=== PATIENT | female | born 1945 | race Caucasian/White ===

== ENCOUNTER → 2018-01-09 13:30 | Outpatient (CLI) | payer MEDICARE, SELFPAY ==
[2018-01-09 14:40] LABS: Anion Gap 10 (5-15); BUN 11 mg/dL (7-18); BUN/Creat Ratio 10.7 RATIO (10-20); Calcium,Total 8.7 mg/dL (8.5-10.1); Chloride 98 mmol/L (98-107); Creatinine, Serum 1.03 mg/dL (0.55-1.02); EST Glomerular Filtration Rate 56 mL/min (>60); Est Glom Filt Rate - Afr Amer 68 mL/min (>60); Glucose 107 mg/dL (74-106); Potassium 3.9 mmol/L (3.5-5.1); Sodium Level 133 mmol/L (136-145)
== END ==
PROVIDERS: Family Provider Family Medicine Geriatric Medicine; PCP Family Medicine Geriatric Medicine; Visit Provider Family Medicine Geriatric Medicine
DX: E87.6 Hypokalemia (principal)
CPT/HCPCS: 36415; 80048

== ENCOUNTER → 2018-03-26 12:17 | Outpatient (CLI) | payer MEDICARE, SELFPAY ==
--- NOTE | 2018-03-26 13:01 | MRI_ITS ---
STUDY: MRI LUMBAR SPINE WITHOUT CONTRAST REASON FOR EXAM: Female, 72 years old. Low back pain and right leg pain TECHNIQUE: Standardized fat and water weighted pulse sequences were obtained in the sagittal and axial planes. COMPARISON: None FINDINGS: T12-L1: Anterior osteophytes and L1 Schmorl's node. Bulging annulus without compressive sequelae. Normal lumbar lordosis. There is no substantial scoliosis. Normal conus medullaris that terminates at the T12-L1 level. L1-2: Normal endplates. Normal disc height, hydration and morphology. Normal bilateral facet joints. Normal central canal and bilateral lateral recesses. Normal bilateral intervertebral neural foramina. L2-3: Bulging annulus and bilateral facet hypertrophy with mild central canal and bilateral foraminal stenoses. L3-4: Anterior osteophytes. Bulging annulus with mild central canal stenosis and moderate to severe left and mild right foraminal stenoses. L4-5: Bulging annulus and bilateral facet hypertrophy with mild central canal stenosis and bilateral foraminal stenoses. L5-S1: Bilateral lateral disc osteophyte complexes. No nerve root impingement. Normal visualized sacral ala. Normal visualized paraspinous soft tissue structures. Left renal cyst. MRI/Spine Lumbar (Routine) IMPRESSION: Multilevel degenerative disease as described. Moderate to severe left foraminal stenosis at the L3-4 level. Electronically Signed: Cory Sue MD at 2:53 EDT Tel , Service support ,
== END ==
PROVIDERS: Family Provider Family Medicine Geriatric Medicine; PCP Family Medicine Geriatric Medicine; Visit Provider Anesthesiology Pain Medicine
DX: M54.5 Low back pain (principal); M79.604 Pain in right leg; M51.37 Other intervertebral disc degeneration, lumbosacral region; M54.17 Radiculopathy, lumbosacral region; M47.817 Spondylosis without myelopathy or radiculopathy, lumbosacral region
CPT/HCPCS: 72148

== ENCOUNTER → 2018-07-15 16:22 | Outpatient (CLI) | payer MEDICARE, SELFPAY ==
[2018-07-15 17:14] LABS: Absolute Lymphocyte Count 1.19 X10^3/ul (0.83-4.51); Basophil# 0.02 X10^3/uL; Basophil% 0.4 % (0-1); Eosinophil# 0.41 X10^3/uL; Eosinophils% 8.2 % (0-5); Hematocrit 34.9 % (37-47); Hemoglobin 11.5 g/dl (12.0-15.0); Lymphocyte # 1.19 X10^3/ul (4.0); Lymphocyte % 23.7 % (19-41); Mean Corpuscular Hgb 32.9 pg (27.0-32.0); Mean Corpuscular Volume 99.7 fL (81-99); Mean Platelet Vol. 10.2 fl (6.2-12.0); Monocyte# 0.41 X10^3/uL; Monocyte% 8.2 % (0-10); Neutrophil % 59.5 % (47-70); Platelet Count 120 K/mm3 (150-450); RBC Distribution Width CV 15.3 % (11.6-14.6); RBC Distribution Width SD 55.9 fl (35.1-43.9)
[2018-07-15 17:18] LABS: POSITIVE COUNT NO; POSITIVE DIFFERENTIAL NO; POSITIVE MORPHOLOGY NO
[2018-07-15 18:01] LABS: ALB/GLOB Ratio 0.6 RATIO (0.9-2.4); AST(SGOT) 55 U/L (15-37); Alanine Aminotransfer ALT/SGPT 30 U/L (13-56); Albumin, Serum 2.5 g/dL (3.2-5.0); Alkaline Phosphatase 82 U/L (45-117); Anion Gap 12 (5-15); BUN 10 mg/dL (7-18); Calcium,Total 8.6 mg/dL (8.5-10.1); Chloride 103 mmol/L (98-107); Creatinine, Serum 1.11 mg/dL (0.55-1.02); EST Glomerular Filtration Rate 51 mL/min (>60); Est Glom Filt Rate - Afr Amer 62 mL/min (>60); Globulin 4.4 g/dL (2.2-4.2); Glucose 146 mg/dL (74-106); Protein, Total 6.9 g/dL (6.4-8.2); Sodium Level 138 mmol/L (136-145); Thyroid Stim Hormone (TSH) 0.53 uIU/mL (0.358-3.74); Uric Acid 3.7 mg/dL (2.6-6.0)
[2018-07-16 09:06] LABS: Vitamin D,25 Hydroxy 30.2 ng/mL (29.95-100.01)
== END ==
PROVIDERS: Family Provider Family Medicine Geriatric Medicine; PCP Family Medicine Geriatric Medicine; Visit Provider Family Medicine Geriatric Medicine
DX: I10 Essential (primary) hypertension (principal); M10.9 Gout, unspecified; E55.9 Vitamin D deficiency, unspecified
CPT/HCPCS: 36415; 80053; 82306; 84443; 84550; 85025

== ENCOUNTER → 2019-01-02 10:54 | Outpatient (CLI) | payer MEDICARE, SELFPAY ==
[2019-01-02 13:12] LABS: Absolute Lymphocyte Count 1.16 X10^3/ul (0.83-4.51); Basophil# 0.02 X10^3/uL; Basophil% 0.4 % (0-1); Eosinophil# 0.32 X10^3/uL; Eosinophils% 6.6 % (0-5); Hematocrit 33.7 % (37-47); Lymphocyte # 1.16 X10^3/ul (4.0); Lymphocyte % 23.9 % (19-41); Mean Corp Hgb Conc 32.6 g/gl (32-36); Mean Corpuscular Hgb 32.3 pg (27.0-32.0); Mean Corpuscular Volume 98.8 fL (81-99); Monocyte# 0.38 X10^3/uL; Monocyte% 7.8 % (0-10); Neutrophil # 2.97 X10^3/uL (2.7-7.7); Neutrophil % 61.1 % (47-70); Platelet Count 124 K/mm3 (150-450); RBC Distribution Width CV 15.5 % (11.6-14.6); RBC Distribution Width SD 53.7 fl (35.1-43.9); Red Blood Count 3.41 M/mm3 (4.2-5.4); White Blood Count 4.9 K/mm3 (4.4-11.0)
[2019-01-02 13:13] LABS: POSITIVE COUNT NO; POSITIVE DIFFERENTIAL NO; POSITIVE MORPHOLOGY NO
[2019-01-02 13:49] LABS: Vitamin D,25 Hydroxy 23.6 ng/mL (29.95-100.01)
[2019-01-02 13:59] LABS: ALB/GLOB Ratio 0.5 RATIO (0.9-2.4); AST(SGOT) 38 U/L (15-37); Alanine Aminotransfer ALT/SGPT 20 U/L (13-56); Albumin, Serum 2.5 g/dL (3.2-5.0); Alkaline Phosphatase 90 U/L (45-117); Anion Gap 10 (5-15); BUN 11 mg/dL (7-18); BUN/Creat Ratio 9.7 RATIO (10-20); Calcium,Total 8.5 mg/dL (8.5-10.1); Chloride 104 mmol/L (98-107); Creatinine, Serum 1.13 mg/dL (0.55-1.02); EST Glomerular Filtration Rate 50 mL/min (>60); Est Glom Filt Rate - Afr Amer 61 mL/min (>60); Globulin 4.9 g/dL (2.2-4.2); Glucose 172 mg/dL (74-106); Potassium 4.1 mmol/L (3.5-5.1); Protein, Total 7.4 g/dL (6.4-8.2); Sodium Level 136 mmol/L (136-145); Uric Acid 3.9 mg/dL (2.6-6.0)
== END ==
PROVIDERS: Family Provider Family Medicine Geriatric Medicine; PCP Family Medicine Geriatric Medicine; Visit Provider Family Medicine Geriatric Medicine
DX: I10 Essential (primary) hypertension (principal); E55.9 Vitamin D deficiency, unspecified; M10.9 Gout, unspecified
CPT/HCPCS: 36415; 80053; 82306; 84443; 84550; 85025

== ENCOUNTER → 2019-08-04 09:22 | Outpatient (CLI) | payer MEDICARE, SELFPAY ==
--- NOTE | 2019-08-04 15:35 | RAD_ITS ---
STUDY: X-RAY - ABDOMEN/PELVIS REASON FOR EXAM: Female, 73 years old. Abdominal bloating. Pain. Diarrhea. TECHNIQUE: AP supine view. COMPARISON: 04/09/2017. FINDINGS: Normal visualized lung bases. There is an unremarkable bowel gas pattern. There is no demonstrated free abdominal air. The visualized liver, spleen and kidneys are grossly normal in size and morphology. Normal soft tissue structures. No acute osseous abnormality. RAD/Abd Inc Decub and/or Erect IMPRESSION: 1. No acute abnormality in the abdomen and pelvis. 2. No significant interval change when compared to 04/09/2017. Electronically Signed: Gideon Farmer MD at 13:42 EDT , Service support ,
[2019-08-04 17:17] LABS: Absolute Lymphocyte Count 1.93 X10^3/uL (0.83-4.51); Absolute Neutrophil Count 4.9 X10^3/uL (2.0-7.7); Basophil# 0.03 X10^3/uL; Basophil% 0.4 % (0-1); Eosinophil# 0.39 X10^3/uL; Hematocrit 27.2 % (37-47); Hemoglobin 8.8 g/dL (12.0-15.0); Lymphocyte # 1.93 X10^3/ul (4.0); Lymphocyte % 24.8 % (19-41); Mean Corp Hgb Conc 32.4 g/dL (32-36); Mean Corpuscular Volume 101.9 fL (81-99); Mean Platelet Vol. 10.8 fl (6.2-12.0); Monocyte% 6.4 % (0-10); NRBC Flagged by Analyzer 0 % (0-5); POSITIVE MORPHOLOGY YES; Platelet Count 142 K/mm3 (150-450); RBC Distribution Width CV 18.6 % (11.6-14.6); RBC Distribution Width SD 69.7 fl (35.1-43.9); Red Blood Count 2.67 M/mm3 (4.2-5.4); White Blood Count 7.8 K/mm3 (4.4-11.0)
[2019-08-04 17:33] LABS: Differential Indicated SCAN CRITERIA MET
[2019-08-04 17:34] LABS: ALB/GLOB Ratio 0.5 RATIO (0.9-2.4); AST(SGOT) 39 U/L (15-37); Alanine Aminotransfer ALT/SGPT 20 U/L (13-56); Albumin, Serum 2.2 g/dL (3.2-5.0); Alkaline Phosphatase 73 U/L (45-117); Anion Gap 10 (5-15); BUN 27 mg/dL (7-18); BUN/Creat Ratio 8.4 RATIO (10-20); Calcium,Total 8.1 mg/dL (8.5-10.1); Chloride 114 mmol/L (98-107); EST Glomerular Filtration Rate 15 mL/min (>60); Est Glom Filt Rate - Afr Amer 18 mL/min (>60); Globulin 4.2 g/dL (2.2-4.2); Glucose 101 mg/dL (74-106); Potassium 4.8 mmol/L (3.5-5.1); Protein, Total 6.4 g/dL (6.4-8.2); Sodium Level 142 mmol/L (136-145); Thyroid Stim Hormone (TSH) 2.68 uIU/mL (0.358-3.74); Uric Acid 4.4 mg/dL (2.6-6.0)
[2019-08-04 18:05] LABS: Anisocytosis 2+; Platelet Estimate SLT DEC (ADEQ)
[2019-08-04 18:06] LABS: Macrocytosis 1+; Polychromasia RARE
== END ==
LOC: POLAB3 09:23 → RAD 15:26
PROVIDERS: Family Provider Family Medicine Geriatric Medicine; PCP Family Medicine Geriatric Medicine; Referring Provider Family Medicine Geriatric Medicine; Visit Provider Family Medicine Geriatric Medicine
DX: E55.9 Vitamin D deficiency, unspecified (principal); I10 Essential (primary) hypertension; M10.9 Gout, unspecified; R10.9 Unspecified abdominal pain
CPT/HCPCS: 36415; 74019; 80053; 82274; 82306; 83630; 84443; 84550; 85025; 87177; 87209; 87493; 89055

== ENCOUNTER → 2019-08-05 10:09 | Outpatient (CLI) | payer MEDICARE, SELFPAY | PROVIDERS: Family Provider Family Medicine Geriatric Medicine; PCP Family Medicine Geriatric Medicine; Referring Provider Family Medicine Geriatric Medicine; Visit Provider Family Medicine Geriatric Medicine | DX: R19.7 Diarrhea, unspecified (principal) | CPT/HCPCS: 82274; 83630; 87177; 87209; 87493; 89055 ==

== ENCOUNTER → 2019-08-06 14:52 | Outpatient (CLI) | payer MEDICARE, SELFPAY ==
[2019-08-06 16:19] LABS: Absolute Lymphocyte Count 1.19 X10^3/uL (0.83-4.51); Absolute Neutrophil Count 3.5 X10^3/uL (2.0-7.7); Basophil# 0.03 X10^3/uL; Basophil% 0.6 % (0-1); Eosinophil# 0.33 X10^3/uL; Eosinophils% 6.1 % (0-5); Hematocrit 26.6 % (37-47); Hemoglobin 8.4 g/dL (12.0-15.0); Lymphocyte # 1.19 X10^3/ul (4.0); Mean Corp Hgb Conc 31.6 g/dL (32-36); Mean Corpuscular Hgb 32.4 pg (27.0-32.0); Mean Corpuscular Volume 102.7 fL (81-99); Mean Platelet Vol. 11.2 fl (6.2-12.0); Monocyte# 0.35 X10^3/uL; Monocyte% 6.5 % (0-10); NRBC Flagged by Analyzer 0 % (0-5); Neutrophil # 3.49 X10^3/uL (2.7-7.7); Neutrophil % 64.4 % (47-70); POSITIVE MORPHOLOGY YES; Platelet Count 118 K/mm3 (150-450); RBC Distribution Width CV 18.5 % (11.6-14.6); RBC Distribution Width SD 70.1 fl (35.1-43.9); RET-HE 38.2 pg (30-35); Red Blood Count 2.59 M/mm3 (4.2-5.4); Reticulocyte Count 2.65 % (0.5-1.5); White Blood Count 5.4 K/mm3 (4.4-11.0)
[2019-08-06 16:40] LABS: Differential Comment SCANNED
[2019-08-06 17:02] LABS: Vitamin B12 > 2000 pg/mL (211-911)
[2019-08-06 17:12] LABS: Anion Gap 9 (5-15); BUN 30 mg/dL (7-18); BUN/Creat Ratio 8.9 RATIO (10-20); Chloride 114 mmol/L (98-107); Creatinine, Serum 3.36 mg/dL (0.55-1.02); EST Glomerular Filtration Rate 14 mL/min (>60); Est Glom Filt Rate - Afr Amer 17 mL/min (>60); Ferritin 277 ng/mL (8-252); Glucose 85 mg/dL (74-106); Iron 93 ug/dL (50-170); Iron Binding Capacity,Total 198 ug/dL (250-450); Potassium 4.8 mmol/L (3.5-5.1); Sodium Level 141 mmol/L (136-145)
== END ==
PROVIDERS: Family Provider Family Medicine Geriatric Medicine; PCP Family Medicine Geriatric Medicine; Visit Provider Family Medicine Geriatric Medicine
DX: D64.9 Anemia, unspecified (principal); N17.0 Acute kidney failure with tubular necrosis
CPT/HCPCS: 36415; 80048; 82607; 82728; 82746; 83540; 83550; 85025; 85045

== ENCOUNTER 2019-08-17 19:53 | Inpatient (IN) | payer MEDICARE, SELFPAY ==
[2019-08-13 14:37] VITALS: BMI 47.7
[2019-08-17 19:54] VITALS: BP 166/96; PULSE 94; RESP 22; TEMP 37.1; O2SAT 97; BMI 47.0
[2019-08-17 20:18] LABS: Absolute Lymphocyte Count 1.68 X10^3/uL (0.83-4.51); Absolute Neutrophil Count 3.2 X10^3/uL (2.0-7.7); Basophil# 0.03 X10^3/uL; Basophil% 0.5 % (0-1); Eosinophils% 5.2 % (0-5); Hematocrit 27.8 % (37-47); Lymphocyte # 1.68 X10^3/ul (4.0); Mean Corp Hgb Conc 32.4 g/dL (32-36); Mean Corpuscular Hgb 33.6 pg (27.0-32.0); Mean Corpuscular Volume 103.7 fL (81-99); Mean Platelet Vol. 10.1 fl (6.2-12.0); Monocyte# 0.52 X10^3/uL; NRBC Flagged by Analyzer 0 % (0-5); Neutrophil # 3.23 X10^3/uL (2.7-7.7); Neutrophil % 55.6 % (47-70); POSITIVE MORPHOLOGY YES; Platelet Count 129 K/mm3 (150-450); RBC Distribution Width CV 18.6 % (11.6-14.6); RBC Distribution Width SD 70.1 fl (35.1-43.9); Red Blood Count 2.68 M/mm3 (4.2-5.4); White Blood Count 5.8 K/mm3 (4.4-11.0)
[2019-08-17 20:25] LABS: Differential Indicated SCAN CRITERIA MET
[2019-08-17 20:29] LABS: Anion Gap 8 (5-15); BUN 25 mg/dL (7-18); BUN/Creat Ratio 7.4 RATIO (10-20); Calcium,Total 7.8 mg/dL (8.5-10.1); Chloride 112 mmol/L (98-107); Creatinine, Serum 3.38 mg/dL (0.55-1.02); EST Glomerular Filtration Rate 14 mL/min (>60); Est Glom Filt Rate - Afr Amer 17 mL/min (>60); Estimated Creatinine Clearance 11.35 ml/min; Glucose 123 mg/dL (74-106); Potassium 4.5 mmol/L (3.5-5.1); Sodium Level 138 mmol/L (136-145)
[2019-08-17 20:36] LABS: Anisocytosis 1+; Macrocytosis 1+; Platelet Estimate SLT DEC (ADEQ)
[2019-08-17 22:17] VITALS: BP 164/71; PULSE 93; RESP 16; TEMP 37; O2SAT 98
[2019-08-17 23:00] VITALS: BP 149/77; PULSE 98; RESP 17; TEMP 36.4; O2SAT 97
--- NOTE | 2019-08-17 23:24 | ED.VIS.GEN ---
History of Present Illness Chief Complaint: Nausea/Vomiting/Diarrhea Narrative: This patient is a 73-year-old female who presents with nausea dry heaving diarrhea and weakness. She was diagnosed with C. difficile. She has had diarrhea for 6 or 7 weeks. 2 weeks ago she was started on Flagyl. She reports insurance would not approve the other medication my doctor wanted me to take and she was unable to afford it. She complains of ongoing diarrhea which is actually been worsening and she had multiple episodes of diarrhea today. She also complains nausea and dry heaving. She complains of mild abdominal cramping. She also has anemia. She was referred to Dr. Kiser who treated her with IV fluids recently. Past Medical History - Allergies and Home Meds Allergies/Adverse Reactions: Allergies adhesive Allergy (Verified 08/17/19 22:22) Rash Penicillins [PCN] Allergy (Verified 08/17/19 22:22) Swelling Primary Care Physician: Rakesh Ramos Chi, MD [Primary Care Provider] - Past Medical History: - - C. difficile, hypertension, hyperlipidemia Surgical History: appendectomy, cholecystectomy, - - Extensor tendon surgery on both hands, bilateral carpal tunnel, tubal ligation Smoking Status: Never smoker - Family History Maternal Family History: Family History (Last Reviewed 08/13/19 @ 14:37 by Emmanuelle Van) Brother Bone cancer Sister Lung cancer Sister Cervical cancer Hypertension Mother Uterine cancer Father Hypertension Myocardial infarction Brother Myocardial infarction Family History: Reports: Cancer Paternal Family History: Family History (Last Reviewed 08/13/19 @ 14:37 by Emmanuelle Van) Brother Bone cancer Sister Lung cancer Sister Cervical cancer Hypertension Mother Uterine cancer Father Hypertension Myocardial infarction Brother Myocardial infarction Family History: Reports: Heart Disease Review of Systems All systems negative except as indicated General: Denies: Fever Cardiovascular: Denies: Chest pain Respiratory: Denies: Dyspnea Gastrointestinal: Reports: Abdominal pain, Nausea, Diarrhea. Denies: Vomiting Neurological: Reports: Weakness Physical Exam Vital Signs/Narrative: Vital Signs Temp Pulse Resp BP Pulse Ox 08/17/19 22:17 98.6 F 93 16 164/71 H 98 08/17/19 19:54 98.7 F 94 22 H 166/96 H 97 Inital Vital Signs reviewed: Yes General: Well nourished Head: Normocephalic Eyes: EOMI ENT: Dry mucous membranes Cardiovascular: - - Heart regular rhythm, slightly tachycardic Respiratory: No distress, CTA bilaterally Abdomen: Soft, Nontender, Nondistended Skin: Normal color Neurological: Alert Psychological: Normal affect Diagnostic/Tx/Re-eval Laboratory Results 08/17/19 08/17/19 20:10 20:10 WBC 5.8 RBC 2.68 L Hgb 9.0 L Hct 27.8 L MCV 103.7 H MCH 33.6 H MCHC 32.4 RDW Std Deviation 70.1 H RDW Coeff of Yuri 18.6 H Plt Count 129 L MPV 10.1 Immature Gran % (Auto) 0.700 Neut % (Auto) 55.6 Lymph % (Auto) 29.0 Gage % (Auto) 9.0 Eos % (Auto) 5.2 H Baso % (Auto) 0.5 Absolute Neuts (auto) 3.2 Absolute Lymphs (auto) 1.68 Nucleated RBC % 0 Platelet Estimate SLT DEC Anisocytosis 1+ Macrocytosis 1+ Sodium 138 Potassium 4.5 Chloride 112 H Carbon Dioxide 18.0 L Anion Gap 8 BUN 25 H Creatinine 3.38 H Estim Creat Clear Calc 11.35 Est GFR (MDRD) Af Amer 17 L Est GFR (MDRD) Non-Af 14 L BUN/Creatinine Ratio 7.4 L Glucose 123 H Calcium 7.8 L - Medical Decision Making Labs as above. On review of records from December until August 04 patient has developed renal failure. Creatinine went from 1-2 over 3. She has been treated with IV fluids as an outpatient but has not shown significant improvement. Even that she has decreased oral intake ongoing nausea and diarrhea she appears to have failed outpatient treatment and Flagyl. She was treated with IV fluids here. She was discussed with the hospitalist for admission. ED Disposition - Plan for ED Patient: Disposition: Acute Care Hospital [facility] Diagnosis: C. difficile colitis, GRETEL (acute kidney injury) Referrals: Rakesh Ramos Chi, MD [Primary Care Provider] -
--- NOTE | 2019-08-17 23:32 | HP.PCM_ITS ---
Problem List (1) C. difficile colitis Status: Acute (2) GRETEL (acute kidney injury) Status: Acute (3) Hx of cholecystectomy Status: Chronic (4) Hx of appendectomy Status: Chronic (5) Hx of tubal ligation Status: Chronic (6) Hypertension Status: Chronic (7) History of fibromyalgia Status: Chronic (8) Nausea & vomiting Status: Acute (9) Morbid obesity with BMI of 45.0-49.9, adult Status: Chronic (10) Hypothyroidism Status: Chronic (11) HLD (hyperlipidemia) Status: Chronic (12) Anemia Status: Chronic Qualifiers: Anemia type: unspecified type Qualified Code(s): D64.9 - Anemia, unspecified History of Present Illness Date of Admission: 08/17/19 Chief Complaint: diarrhea The patient is a 73 year old F [female patient with a past medical history of C. difficile colitis who has failed outpatient therapy with Flagyl. Initial onset of symptoms began 7 weeks ago and for the past 2 weeks she has been on oral Flagyl. The patient is failed to improve and his developed more nausea and vomiting and diarrhea. No current chest pain or shortness of breath and she denies fevers or chills. She has a history of C. difficile colitis 2 years ago and denies recent antibiotic use. Her current creatinine is increased to 3.38 as well likely secondary to dehydration. She will be admitted to general medical floor put on C. difficile isolation procedures and placed on oral vancomycin.] Past Medical History Past Medical History (Chronic Problems): Chronic Problems (Last Reviewed 08/13/19 @ 14:37 by Emmanuelle Van) Hx of cholecystectomy (Chronic) Hx of appendectomy (Chronic) Hx of tubal ligation (Chronic) Hypertension (Chronic) Sjogrens syndrome (Chronic) Chronic kidney disease (CKD), stage III (moderate) (Chronic) History of fibromyalgia (Chronic) Pulmonary embolism, bilateral (Chronic) Right ventricular dysfunction (Chronic) Pulmonary HTN (Chronic) Morbid obesity with BMI of 45.0-49.9, adult (Chronic) Hypothyroidism (Chronic) Hyperuricemia (Chronic) HLD (hyperlipidemia) (Chronic) Anemia (Chronic) Medical History: Medical History (Last Reviewed 08/13/19 @ 14:37 by Emmanuelle Van) Hypertension (Chronic) I10 Sjogrens syndrome (Chronic) M35.00 Chronic kidney disease (CKD), stage III (moderate) (Chronic) History of fibromyalgia (Chronic) Z87.39 Pulmonary embolism, bilateral (Chronic) I26.99 Right ventricular dysfunction (Chronic) I51.9 Pulmonary HTN (Chronic) I27.2 Hyponatremia (Acute) E87.1 Nausea & vomiting (Acute) R11.2 Morbid obesity with BMI of 45.0-49.9, adult (Chronic) E66.01, Z68.42 Hypothyroidism (Chronic) E03.9 Hyperuricemia (Chronic) E79.0 HLD (hyperlipidemia) (Chronic) E78.5 Anemia (Chronic) D64.9 Diarrhea with dehydration (Acute) R19.7 Allergies adhesive Allergy (Verified 08/17/19 22:22) Rash Penicillins [PCN] Allergy (Verified 08/17/19 22:22) Swelling Home Medications: Ambulatory Orders Medication Instructions Recorded Gabapentin [Neurontin] 600 mg PO BID 04/09/15 Simvastatin 10 mg PO DAILY 04/09/15 Albuterol IH (ProAir) [Proair Hfa] 1 puff INHALATION Q6H PRN PRN 11/09/15 Allopurinol [Zyloprim] 100 mg PO DAILY 11/09/15 Apixaban [Eliquis] 5 mg PO BID #60 tab 11/10/15 Omeprazole [Prilosec] 20 mg PO DAILY 04/07/17 Lisinopril [Zestril] 10 mg PO DAILY #30 tab 04/11/17 Cyanocobalamin (Vitamin B-12) 1,000 mcg SUBCUT QMONTH 06/29/17 [B-12 Compliance] Diclofenac Sodium 25 mg PO TID 08/12/19 Iron Polysaccharide Complex 150 mg PO DAILY 08/12/19 [Ferrex 150] Levothyroxine [Synthroid] 125 mcg PO DAILY 08/12/19 Potassium Chloride [Klor-Con 10] 10 meq PO DAILY 08/12/19 metroNIDAZOLE [Flagyl] 500 mg PO Q8H 08/12/19 Surgical History: Surgical History (Last Reviewed 08/13/19 @ 14:37 by Emmanuelle Van) Hx of cholecystectomy (Acute) Z90.49 Hx of appendectomy (Acute) Z90.49 History of carpal tunnel release of both wrists (Acute) Z98.890 Hx of tubal ligation (Acute) Z98.51 Hx of arthroscopic knee surgery (Acute) Z98.890 bilateral Surgical History: appendectomy, cholecystectomy, - - Extensor tendon surgery on both hands, bilateral carpal tunnel, tubal ligation Psychiatric History: No pertinent psych hx [employer]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 Smoking Status: Never smoker - *Family History Maternal Family History: Family History (Last Reviewed 08/13/19 @ 14:37 by Emmanuelle Van) Brother Bone cancer Sister Lung cancer Sister Cervical cancer Hypertension Mother Uterine cancer Father Hypertension Myocardial infarction Brother Myocardial infarction History Items: Cancer Paternal Family History: Family History (Last Reviewed 08/13/19 @ 14:37 by Emmanuelle Van) Brother Bone cancer Sister Lung cancer Sister Cervical cancer Hypertension Mother Uterine cancer Father Hypertension Myocardial infarction Brother Myocardial infarction History Items: Heart Disease Review of Systems Constitutional: Reports: Weakness. Denies: Chills, Fever, Weight Change HEENT: Denies: Head Aches, Sinus Congestion, Sinus Drainage Cardiovascular: Denies: Chest Pain, Palpitations Respiratory: Denies: Cough, Shortness of breath at rest, Sputum production Gastrointestinal: Reports: Abdominal Pain, Diarrhea, Nausea, Vomiting Genitourinary: Denies: Dysuria Musculoskeletal: Denies: Joint Pain, Joint Tenderness Skin: Denies: Rash, Wounds Neurological: Denies: Numbness, Tingling, Focal weakness Psychiatric: Denies: Anxiety, Depression, Homicidal Ideations, Suicidal Ideations Hematologic/ Lymphatic: Denies: Easy Bruising, Easy Bleeding VTE Information - Inpt Only VTE Present on Admission: No VTE Mechan Device Prophylaxis: SCD's, None VTE Pharm Prophylaxis ordered?: No - Physical Exam General: Alert, Oriented x3, Cooperative HEENT: Atraumatic, Normocephalic Neck: Supple, Negative Carotid Bruits Lungs: Clear to auscultation, Normal air movement Cardiovascular: Regular rate, No murmurs Abdomen: Bowel Sounds Present, Soft, Obese, Tender Extremities: No edema Skin: No rashes Musculoskeletal: No Tenderness to Palpation of Joints or Extremities Neurological: Neuro grossly intact Psych/Mental Status: Normal Affect, Appropriate Vital Signs Temp Pulse Resp BP Pulse Ox 97.5 F L 98 17 149/77 H 97 08/17/19 23:00 08/17/19 23:00 08/17/19 23:00 08/17/19 23:00 08/17/19 23:00 Oxygen Delivery Method Room Air Weight: 253 lb Body Mass Index (BMI) 47.0 Laboratory Tests Past 24 Hrs 08/17/19 08/17/19 20:10 20:10 WBC 5.8 RBC 2.68 L Hgb 9.0 L Hct 27.8 L MCV 103.7 H MCH 33.6 H MCHC 32.4 RDW Std Deviation 70.1 H RDW Coeff of Yuri 18.6 H Plt Count 129 L MPV 10.1 Immature Gran % (Auto) 0.700 Neut % (Auto) 55.6 Lymph % (Auto) 29.0 [place] % (Auto) 9.0 Eos % (Auto) 5.2 H Baso % (Auto) 0.5 Absolute Neuts (auto) 3.2 Absolute Lymphs (auto) 1.68 Nucleated RBC % 0 Platelet Estimate SLT DEC Anisocytosis 1+ Macrocytosis 1+ Sodium 138 Potassium 4.5 Chloride 112 H Carbon Dioxide 18.0 L Anion Gap 8 BUN 25 H Creatinine 3.38 H Estim Creat Clear Calc 11.35 Est GFR (MDRD) Af Amer 17 L Est GFR (MDRD) Non-Af 14 L BUN/Creatinine Ratio 7.4 L Glucose 123 H Calcium 7.8 L Assessment/Plan All Active Problems (Last Reviewed 08/13/19 @ 14:37 by Emmanuelle Van) C. difficile colitis (Acute) GRETEL (acute kidney injury) (Acute) History of carpal tunnel release of both wrists (Acute) Hx of arthroscopic knee surgery (Acute) Hyponatremia (Acute) Nausea & vomiting (Acute) Diarrhea with dehydration (Acute) Acute bronchitis (Resolved) Chronic Problems (Last Reviewed 08/13/19 @ 14:37 by Emmanuelle Van) Hx of cholecystectomy (Chronic) Hx of appendectomy (Chronic) Hx of tubal ligation (Chronic) Hypertension (Chronic) Sjogrens syndrome (Chronic) Chronic kidney disease (CKD), stage III (moderate) (Chronic) History of fibromyalgia (Chronic) Pulmonary embolism, bilateral (Chronic) Right ventricular dysfunction (Chronic) Pulmonary HTN (Chronic) Morbid obesity with BMI of 45.0-49.9, adult (Chronic) Hypothyroidism (Chronic) Hyperuricemia (Chronic) HLD (hyperlipidemia) (Chronic) Anemia (Chronic) Plan 1. C. difficile colitis?failure outpatient therapy, place patient on oral vancomycin, repeat CBC BMP in the morning IV normal saline at 125 cc/h patient should have a soft diet advance as tolerated. 2. Hypertension to new current medications 3. Hypothyroidism?continue current home medication 4. Anemia?repeat CBC in the morning, the patient has been seen by hematology Dr. Kiser 5. DVT prophylaxis we will use SCDs due to anemia and renal failure Code Visit Inpatient E&M: 08444 Init Hosp L3
[2019-08-17] MEDS: 0.9% Normal Saline 1,000 ML 999 ML IV (23:34)
[2019-08-18 00:13] VITALS: BMI 47.6
[2019-08-18 00:16] VITALS: BP 153/81; PULSE 92; RESP 24; TEMP 36.8; O2SAT 98
[2019-08-18 00:32] VITALS: BMI 47.7
[2019-08-18] MEDS: 0.9% Normal Saline 1,000 ML 999 ML IV (00:39)
[2019-08-18] MEDS: 0.9% Normal Saline 1,000 ML 125 ML IV ×3 (01:45→17:25)
[2019-08-18] MEDS: Ondansetron 4 MG/2 ML Vial IV ×2 (02:39→10:39)
[2019-08-18] MEDS: 0.9% NaCl Peripheral Flush Adult/Peds IV (02:40)
[2019-08-18 02:55] LABS: Bacteria 0 SEEN /hpf (None Seen); Mucous, Urine 0 SEEN /hpf (<or=2+)
[2019-08-18 02:56] LABS: Color, Urine Yellow (Yellow); Glucose, Dipstick Normal (Normal); Ketone-Dipstick Negative (Negative); Leukocyte Esterase-Dipstick 100 /ul (Negative); Nitrite-Dipstick Negative (Negative); Occult Blood-Urine 250 /ul (Negative); Protein-Dipstick 100 mg/dl (Negative); Urine Bilirubin Dipstick Negative (Negative); Urine Clarity Sl. Cloudy (Clear); Urine Urobilinogen Normal (Normal)
[2019-08-18 03:05] LABS: Red Blood Cells-Urine > 100 SEEN /hpf (0-5); Squamous Epithelial Cells - UA 10-25 SEEN /hpf (5-10); White Blood Cells 0-5 SEEN /hpf (0-5)
[2019-08-18 05:20] VITALS: BP 158/68; PULSE 88; RESP 20; TEMP 36.8; O2SAT 98
[2019-08-18] MEDS: Levothyroxine 125 MCG Tablet PO (05:25)
[2019-08-18 06:24] LABS: Absolute Neutrophil Count 2.8 X10^3/uL (2.0-7.7); Basophil# 0.02 X10^3/uL; Basophil% 0.4 % (0-1); Eosinophils% 4.3 % (0-5); Hemoglobin 8.5 g/dL (12.0-15.0); Lymphocyte % 25.7 % (19-41); Mean Corp Hgb Conc 32.7 g/dL (32-36); Mean Platelet Vol. 10.7 fl (6.2-12.0); Monocyte# 0.47 X10^3/uL; Monocyte% 10.1 % (0-10); NRBC Flagged by Analyzer 0 % (0-5); Neutrophil # 2.75 X10^3/uL (2.7-7.7); Neutrophil % 58.9 % (47-70); POSITIVE MORPHOLOGY YES; Platelet Count 93 K/mm3 (150-450); RBC Distribution Width CV 18.7 % (11.6-14.6); RBC Distribution Width SD 72.2 fl (35.1-43.9); White Blood Count 4.7 K/mm3 (4.4-11.0)
[2019-08-18 06:27] LABS: Differential Indicated SCAN CRITERIA MET
[2019-08-18 06:49] LABS: Anion Gap 10 (5-15); BUN 18 mg/dL (7-18); BUN/Creat Ratio 8.5 RATIO (10-20); Calcium,Total 7.9 mg/dL (8.5-10.1); Chloride 114 mmol/L (98-107); Creatinine, Serum 2.11 mg/dL (0.55-1.02); EST Glomerular Filtration Rate 24 mL/min (>60); Est Glom Filt Rate - Afr Amer 30 mL/min (>60); Estimated Creatinine Clearance 18.19 ml/min; Glucose 107 mg/dL (74-106); Potassium 4.4 mmol/L (3.5-5.1); Sodium Level 138 mmol/L (136-145); Thyroid Stim Hormone (TSH) 1.35 uIU/mL (0.358-3.74)
[2019-08-18 06:51] LABS: Anisocytosis 1+
[2019-08-18 08:10] VITALS: BP 150/89; PULSE 89; RESP 18; TEMP 36.8; O2SAT 97
[2019-08-18] MEDS: Allopurinol 100 MG Tablet PO (09:16)
[2019-08-18] MEDS: Iron Polysaccharide Complex 150 MG CAPSULE PO (09:16)
[2019-08-18] MEDS: Gabapentin 600 MG Tablet PO ×2 (09:16→17:25)
[2019-08-18] MEDS: Pantoprazole Sodium 20 MG Tablet PO (09:16)
--- NOTE | 2019-08-18 09:42 | PN_ITS ---
Patient Problems: Active and Suspected Problems (Last Reviewed 08/13/19 @ 14:37 by Emmanuelle Van) C. difficile colitis (Acute) GRETEL (acute kidney injury) (Acute) Subjective: Patient seen and examined. She has been managed for C. difficile and GRETEL. She has no complaints this morning. Diarrhea has improved and she has not had any episodes since admission. Denies any nausea, no vomiting. Review of systems otherwise negative. This is a second episode of C. difficile. She failed outpatient therapy with oral Flagyl. Labs and vitals reviewed. Vitals/I&O's: Vital Signs Temp Pulse Resp BP Pulse Ox 98.3 F 89 18 150/89 H 97 08/18/19 08:10 08/18/19 08:10 08/18/19 08:10 08/18/19 08:10 08/18/19 08:10 Oxygen Delivery Method Room Air Weight: 256 lb 6.362 oz Body Mass Index (BMI) 47.6 Intake and Output for Last 24 Hours 08/16/19 08/17/19 08/18/19 23:59 23:59 23:59 Intake Total 3139.58 / 3139.58 Output Total 400 / 400 Balance 2739.58 / 2739.58 General: Alert, Oriented x3, Cooperative, No apparent distress HEENT: Atraumatic, PERRLA, EOMI, Normocephalic Oral: Moist Mucosa Neck: Supple, No JVD, Negative Carotid Bruits Lungs: Clear to auscultation, Normal air movement, No rhonchi, No wheeze, No rales Cardiovascular: Regular rate, Regular Rhythm, Normal S1, Normal S2, No murmurs Abdomen: Bowel Sounds Present, Soft, Non Tender, Non-Distended, No Hepato- splenomegaly Extremities: No clubbing, No cyanosis, No edema, Capillary Refill Less than 3 Seconds Skin: No rashes, No breakdown Musculoskeletal: No Tenderness to Palpation of Joints or Extremities Lymphatic: No Cervical, Supraclavicular, or Inguinal Adenopathy Neurological: Cranial nerves II-XII grossly intact, Neuro grossly intact, Motor Exam 5/5 strength throughout Psych/Mental Status: Normal Affect, Appropriate, Alert and oriented to time, place, person, mood and affect Laboratory Results 08/17/19 20:10: WBC 5.8, RBC 2.68 L, Hgb 9.0 L, Hct 27.8 L, MCV 103.7 H, MCH 33.6 H, MCHC 32.4, RDW Std Deviation 70.1 H, RDW Coeff of Yuri 18.6 H, Plt Count 129 L, MPV 10.1, Immature Gran % (Auto) 0.700, Neut % (Auto) 55.6, Lymph % (Auto) 29.0, [place] % (Auto) 9.0, Eos % (Auto) 5.2 H, Baso % (Auto) 0.5, Absolute Neuts (auto) 3.2, Absolute Lymphs (auto) 1.68, Nucleated RBC % 0, Platelet Estimate SLT DEC, Anisocytosis 1+, Macrocytosis 1+ 08/17/19 20:10: Sodium 138, Potassium 4.5, Chloride 112 H, Carbon Dioxide 18.0 L , Anion Gap 8, BUN 25 H, Creatinine 3.38 H, Estim Creat Clear Calc 11.35, Est GFR (MDRD) Af Amer 17 L, Est GFR (MDRD) Non-Af 14 L, BUN/Creatinine Ratio 7.4 L, Glucose 123 H, Calcium 7.8 L 08/18/19 02:45: Urine Color Yellow, Urine Clarity Sl. Cloudy, Urine pH 5.0, Ur Specific [place] 1.010, Urine Protein 100 H, Urine Glucose (UA) Normal, Urine Ketones Negative, Urine Occult Blood 250 H, Urine Nitrite Negative, Urine Bilirubin Negative, Urine Urobilinogen Normal, Ur Leukocyte Esterase 100 H, Urine RBC > 100 SEEN, Urine WBC 0-5 SEEN, Ur Squamous Epith Cells 10-25 SEEN, Urine Bacteria 0 SEEN, Urine Mucus 0 SEEN 08/18/19 05:48: WBC 4.7, RBC 2.50 L, Hgb 8.5 L, Hct 26.0 L, MCV 104.0 H, MCH 34.0 H, MCHC 32.7, RDW Std Deviation 72.2 H, RDW Coeff of Yuri 18.7 H, Plt Count 93 L, MPV 10.7, Immature Gran % (Auto) 0.600, Neut % (Auto) 58.9, Lymph % (Auto) 25.7, [place] % (Auto) 10.1 H, Eos % (Auto) 4.3, Baso % (Auto) 0.4, Absolute Neuts (auto) 2.8, Absolute Lymphs (auto) 1.20, Nucleated RBC % 0, Anisocytosis 1+ 08/18/19 05:48: Sodium 138, Potassium 4.4, Chloride 114 H, Carbon Dioxide 14.0 L , Anion Gap 10, BUN 18, Creatinine 2.11 H, Estim Creat Clear Calc 18.19, Est GFR (MDRD) Af Amer 30 L, Est GFR (MDRD) Non-Af 24 L, BUN/Creatinine Ratio 8.5 L, Glucose 107 H, Calcium 7.9 L, TSH 1.35 Current [facility]ations [facility] Last Admin: 08/18/19 09:16 Dose: 100 mg Documented by: Atorvastatin Calcium (Lipitor) 5 mg PO QHS [facility] Gabapentin (Neurontin) [facility] [address] [facility] Last Admin: 08/18/19 09:16 Dose: 600 mg Documented by: Sodium Chloride () 1,000 mls @ 125 mls/hr IV .Q8H [facility] Last Admin: 08/18/19 09:16 Dose: 125 mls/hr Documented by: Sodium Chloride () 250 mls @ 15 mls/hr IV .[id number] PRN PRN Reason: SALINE FLUSH Levothyroxine Sodium (Synthroid) 125 mcg PO DAILY@0600 [facility] Last Admin: 08/18/19 05:25 Dose: 125 mcg Documented by: Nutritional Formula (Lactose Free) (Ensure Enlive) 120 ml PO 4X/DAY [facility] Last Admin: 08/18/19 09:16 Dose: 120 ml Documented by: Ondansetron HCl (Zofran) 4 mg IV Q8H PRN PRN PRN Reason: NAUSEA/VOMITING Last Admin: 08/18/19 02:39 Dose: 4 mg Documented by: Pantoprazole Sodium (Protonix) 20 mg PO DAILY [facility] Last Admin: 08/18/19 09:16 Dose: 20 mg Documented by: Polysaccharide Iron Complex (Ferrex 150) 150 mg PO DAILY [facility] Last Admin: 08/18/19 09:16 Dose: 150 mg Documented by: Potassium Chloride (K-Dur) 10 meq PO DAILY [facility] Last Admin: 08/18/19 09:16 Dose: 10 meq Documented by: Prochlorperazine Edisylate (Compazine Iv) 5 mg IV Q4H PRN PRN PRN Reason: Breakthrough nausea/vomiting Sodium Chloride () 10 - 40 ml IV UD PRN PRN Reason: SALINE FLUSH Last Admin: 08/18/19 02:40 Dose: 10 ml Documented by: Vancomycin HCl () 125 mg PO Q6 [facility] Last Admin: 08/18/19 05:25 Dose: 125 mg Documented by: Medical Necessity - Tobacco Use Smoking Status: Never smoker Assessment/Plan All Active Problems (Last Reviewed 08/13/19 @ 14:37 by Emmanuelle Van) C. difficile colitis (Acute) GRETEL (acute kidney injury) (Acute) History of carpal tunnel release of both wrists (Acute) Hx of arthroscopic knee surgery (Acute) Hyponatremia (Acute) Nausea & vomiting (Acute) Diarrhea with dehydration (Acute) Acute bronchitis (Resolved) 1. C Diff colitis * hasnt had diarrhea since admission yesterday * on PO vancomycin, will continue * tolerating oral diet * continue hydrating with IVF NS * 2. GRETEL on CKD 3 * CR was 3.38 on admission, baseline is ~ 1.2 * now down to 2.11; likely pre-renal due to dehydration from C Diff * continue gentle hydration with IVF and trend Cr * 3. Non anion gap metabolic acidosis * bicarb is 14 today, was 18 on admission * anion gap is 10 * likely due to diarrhea from C Diff; will monitor; if it worsens, may benefit from bicarb * 4. Anemia * Hb is 8.5 today; baseline since 2018 is ~ 11 * is a macrocytic, normochromic anemia * Iron studies done in July 2019 showed iron saturation of 88.9% with elevated ferritin of 3.12 and low total iron binding capacity of 180. * Vitamin B12 was high and folate was within normal limits. * Has been following up with Dr. Kiser on outpatient basis. To continue. * 5. Hypothyroidism: on synthroid 7. Hypertension: * fairly controlled. * on lisinopril. * 8.History of bilateral PE: on apixaban. DVT prophylaxis: on eliquis. Code Visit Inpatient E&M: 35250 [facility] Hosp L3
--- NOTE | 2019-08-18 10:00 | CASEMGMT ---
SANDRA MEYER Face to Face with patient for initial transition planning/care coordination assessment. SANDRA MEYER introduced self and role at [facility]. Patient lying in bed, alert and oriented. Patient willing to participate in assessment and is able to answer all questions appropriately. Care providers, pharmacy, and demographics verified. Patient wishes to discharge home, denies need for home health at this time. Patient states she has no further needs or concerns at this time. CM to follow for discharge planning needs that may arise. PCP: Richard Specialists: Rashel, oncologist; Charisma, surgeon Preferred Pharmacy: [facility] Insurance: [employer] [facility] Prescription Benefit: yes Living Will/HPOA: none LNOK: , daughter Living Arrangements: Patient lives with in Mobile home with 3 steps to enter the home. Patient is independent at home. Transportation: DME/HHC: Patient states she has shower chair, raised toilet, cane, and nebulizer at home. Patient states that she was to have medication for c-diff but was too expensive, she updated PCP and he prescribed Flagyl. SANDRA MEYER will monitor for need for prior auth for medications at discharge. Disposition Plan: Patient to discharge home with family support and follow-up plans in place. Yulia GUY, RN, CM
[2019-08-18 14:00] VITALS: BP 154/70; PULSE 91; RESP 18; TEMP 36.9; O2SAT 93
[2019-08-18 19:41] VITALS: BP 142/67; PULSE 89; RESP 18; TEMP 36.8; O2SAT 94
[2019-08-18] MEDS: APIXABAN 5 MG TABLET PO (21:41)
[2019-08-18] MEDS: Atorvastatin Calcium 10 MG Tablet 5 MG PO (21:41)
[2019-08-19 00:25] VITALS: BP 139/68; PULSE 103; RESP 20; TEMP 36.8; O2SAT 96
[2019-08-19] MEDS: 0.9% Normal Saline 1,000 ML 125 ML IV (01:43)
[2019-08-19 05:31] VITALS: BP 151/79; PULSE 83; RESP 18; TEMP 36.8; O2SAT 97
[2019-08-19] MEDS: Levothyroxine 125 MCG Tablet PO (05:44)
[2019-08-19 05:53] LABS: Absolute Lymphocyte Count 1.23 X10^3/uL (0.83-4.51); Absolute Neutrophil Count 2.2 X10^3/uL (2.0-7.7); Basophil# 0.03 X10^3/uL; Basophil% 0.7 % (0-1); Eosinophil# 0.28 X10^3/uL; Eosinophils% 6.6 % (0-5); Hematocrit 24.1 % (37-47); Hemoglobin 7.7 g/dL (12.0-15.0); Lymphocyte # 1.23 X10^3/ul (4.0); Lymphocyte % 28.9 % (19-41); Mean Corpuscular Hgb 33.6 pg (27.0-32.0); Mean Corpuscular Volume 105.2 fL (81-99); Mean Platelet Vol. 9.8 fl (6.2-12.0); Monocyte# 0.45 X10^3/uL; Monocyte% 10.6 % (0-10); NRBC Flagged by Analyzer 0 % (0-5); Neutrophil # 2.24 X10^3/uL (2.7-7.7); Neutrophil % 52.7 % (47-70); POSITIVE MORPHOLOGY YES; Platelet Count 94 K/mm3 (150-450); RBC Distribution Width CV 18.8 % (11.6-14.6); RBC Distribution Width SD 72.8 fl (35.1-43.9); Red Blood Count 2.29 M/mm3 (4.2-5.4); White Blood Count 4.3 K/mm3 (4.4-11.0)
[2019-08-19 05:57] LABS: Differential Indicated SCAN CRITERIA MET
[2019-08-19 06:18] LABS: Anion Gap 7 (5-15); BUN 25 mg/dL (7-18); BUN/Creat Ratio 8.4 RATIO (10-20); Calcium,Total 7.3 mg/dL (8.5-10.1); Chloride 118 mmol/L (98-107); Creatinine, Serum 2.96 mg/dL (0.55-1.02); EST Glomerular Filtration Rate 17 mL/min (>60); Est Glom Filt Rate - Afr Amer 20 mL/min (>60); Estimated Creatinine Clearance 12.96 ml/min; Glucose 84 mg/dL (74-106); Potassium 4.8 mmol/L (3.5-5.1); Sodium Level 142 mmol/L (136-145)
[2019-08-19 06:21] LABS: Anisocytosis 1+; Differential Comment SCANNED
--- NOTE | 2019-08-19 09:04 | PCM.CONS.R ---
Consultation - Renal 08/19/19 PCP/ Referring MD: Requesting physician: [] Primary care physician: Rakesh Ramos MD Reason for Consultation:: Gretel on CKD - History of Present Illness History of Present Illness: The patient is a 73 year old F admitted for continued watery diarrhea despite oral flagyl started as outpt. She was not able to get oral vanco due to her insurance. She had diarrhea for five weeks but failed to seek medical attention until about a week ago. She thought her diarrhea was from eating out often with family visiting in town. She had nausea, vomiting, poor appetite. She denied bloody stools. She had abdominal distension improved since admit. She complains of weakness. She was scheduled to see me in the office on Aug 26 for initial consultation. Creatinine was 1.13 in Dec 2018 increased to 3.2 on 08/04/19. Creatinine was 3.38 on admission improved to 2.11 with iv hydration. Creatinine increased to 2.9. She has formed stools today for the first time. She had poor intake yesterday but feeling better today. She denied NSAID use or diuretic therapy at home. She is on lisinopril for hypertension. PMH significant for hypertension, Sjogrens syndrome, fibromyalgia, pulmonary emboli, pulmonary hypertension, anemia on oral iron, and hypothyroidism. She denies chest pain or shortness of breath. Denies fevers or chills. She has a history of C. difficile colitis 2 years ago. and denies recent antibiotic use. Her current creatinine is increased to 3.38 as well likely secondary to dehydration. She will be admitted to general medical floor put on C. difficile isolation procedures and placed on oral vancomycin.] - Allergies Allergies: Allergies adhesive Allergy (Verified 08/17/19 22:22) Rash Penicillins [PCN] Allergy (Verified 08/17/19 22:22) Swelling - Current Medications Current Medications: Current Medications Acetaminophen (Tylenol) 650 mg PO Q6H PRN PRN PRN Reason: Fever, headache, pain [facility]) [facility] Last Admin: 08/18/19 09:16 Dose: 100 mg Documented by: Apixaban (Eliquis) 5 mg PO BID [facility] Last Admin: 08/18/19 21:41 Dose: 5 mg Documented by: Atorvastatin Calcium (Lipitor) 5 mg PO QHS [facility] Last Admin: 08/18/19 21:41 Dose: 5 mg Documented by: Gabapentin (Neurontin) 600 mg PO BIDCM [facility] Last Admin: 08/18/19 17:25 Dose: 600 mg Documented by: Sodium Chloride () 250 mls @ 15 mls/hr IV .[id number] PRN PRN Reason: SALINE FLUSH Levothyroxine Sodium (Synthroid) 125 mcg PO DAILY@0600 [facility] Last Admin: 08/19/19 05:44 Dose: 125 mcg Documented by: Ondansetron HCl (Zofran) 4 mg IV Q8H PRN PRN PRN Reason: NAUSEA/VOMITING Last Admin: 08/18/19 10:39 Dose: 4 mg Documented by: Pantoprazole Sodium (Protonix) 20 mg PO DAILY [facility] Last Admin: 08/18/19 09:16 Dose: 20 mg Documented by: Polysaccharide Iron Complex (Ferrex 150) 150 mg PO DAILY [facility] Last Admin: 08/18/19 09:16 Dose: 150 mg Documented by: Potassium Chloride (K-Dur) 10 meq PO DAILY [facility] Last Admin: 08/18/19 09:16 Dose: 10 meq Documented by: Prochlorperazine Edisylate (Compazine Iv) 5 mg IV Q4H PRN PRN PRN Reason: Breakthrough nausea/vomiting Sodium Chloride () 10 - 40 ml IV UD PRN PRN Reason: SALINE FLUSH Last Admin: 08/18/19 02:40 Dose: 10 ml Documented by: Vancomycin HCl () 125 mg PO Q6 [facility] Last Admin: 08/19/19 05:44 Dose: 125 mg Documented by: - Past Medical History Past Medical History (Chronic Problems): Chronic Problems (Last Reviewed 08/13/19 @ 14:37 by Emmanuelle Van) Hx of cholecystectomy (Chronic) Hx of appendectomy (Chronic) Hx of tubal ligation (Chronic) Hypertension (Chronic) Sjogrens syndrome (Chronic) Chronic kidney disease (CKD), stage III (moderate) (Chronic) History of fibromyalgia (Chronic) Pulmonary embolism, bilateral (Chronic) Right ventricular dysfunction (Chronic) Pulmonary HTN (Chronic) Morbid obesity with BMI of 45.0-49.9, adult (Chronic) Hypothyroidism (Chronic) Hyperuricemia (Chronic) HLD (hyperlipidemia) (Chronic) Anemia (Chronic) - Past Surgical History Surgical History: appendectomy, cholecystectomy, - - Extensor tendon surgery on both hands, bilateral carpal tunnel, tubal ligation - Social History Smoking Status: Never smoker - Family History Maternal Family History: Family History (Last Reviewed 08/13/19 @ 14:37 by Emmanuelle Van) Brother Bone cancer Sister Lung cancer Sister Cervical cancer Hypertension Mother Uterine cancer Father Hypertension Myocardial infarction Brother Myocardial infarction History Items: Cancer Paternal Family History: Family History (Last Reviewed 08/13/19 @ 14:37 by Emmanuelle Van) Brother Bone cancer Sister Lung cancer Sister Cervical cancer Hypertension Mother Uterine cancer Father Hypertension Myocardial infarction Brother Myocardial infarction History Items: Heart Disease Review of Systems Constitutional: Reports: Anorexia, Malaise, Weakness, Fatigue. Denies: Chills, Fever Eyes: Denies: Vision Change HEENT: Denies: Difficulty Hearing, Sore Throat Cardiovascular: Denies: Chest Pain Respiratory: Denies: Cough, Shortness of Breath Gastrointestinal: Reports: Diarrhea - watery, Nausea, Vomiting, - - abdominal distenstion. Denies: Hematemesis, Hematochezia Genitourinary: Denies: Dysuria Neurological: Denies: Balance problems, Tremor, Seizures Psychiatric: Denies: Anxiety, Depression Hematologic/ Lymphatic: Reports: Anemia, Hx of blood clot Patient Problems: Active and Suspected Problems (Last Reviewed 08/13/19 @ 14:37 by Emmanuelle Van) C. difficile colitis (Acute) GRETEL (acute kidney injury) (Acute) - Physical Exam General: Alert, Oriented x3, Cooperative, No apparent distress HEENT: PERRLA, EOMI Oral: Dry Mucosa Neck: Supple Lungs: Clear to auscultation Cardiovascular: Regular rate Abdomen: Bowel Sounds Present, Soft, Non Tender, Non-Distended, Obese Extremities: No edema Skin: No rashes Musculoskeletal: No Muscle Wasting Neurological: Cranial nerves II-XII grossly intact Psych/Mental Status: Normal Affect, Appropriate, Alert and oriented to time, place, person, mood and affect Vital Signs Temp Pulse Resp BP Pulse Ox 98.3 F 83 18 151/79 H 97 08/19/19 05:31 08/19/19 05:31 08/19/19 05:31 08/19/19 05:31 08/19/19 05:31 Oxygen Delivery Method Room Air Weight: 116.3 kg Body Mass Index (BMI) 47.6 Intake and Output for Last 24 Hours 08/17/19 08/18/19 08/19/19 23:59 23:59 23:59 Intake Total 5009.58 / 5009.58 1200 / 1200 Output Total 400 / 400 100 / 100 Balance 4609.58 / 4609.58 1100 / 1100 Laboratory Tests Past 24 Hrs 08/19/19 08/19/19 05:25 05:25 WBC 4.3 L RBC 2.29 L Hgb 7.7 L Hct 24.1 L MCV 105.2 H MCH 33.6 H MCHC 32.0 RDW Std Deviation 72.8 H RDW Coeff of Yuri 18.8 H Plt Count 94 L MPV 9.8 Immature Gran % (Auto) 0.500 Neut % (Auto) 52.7 Lymph % (Auto) 28.9 [place] % (Auto) 10.6 H Eos % (Auto) 6.6 H Baso % (Auto) 0.7 Absolute Neuts (auto) 2.2 Absolute Lymphs (auto) 1.23 Nucleated RBC % 0 Differential Comment SCANNED Anisocytosis 1+ Sodium 142 Potassium 4.8 Chloride 118 H Carbon Dioxide 17.0 L Anion Gap 7 BUN 25 H Creatinine 2.96 H Estim Creat Clear Calc 12.96 Est GFR (MDRD) Af Amer 20 L Est GFR (MDRD) Non-Af 17 L BUN/Creatinine Ratio 8.4 L Glucose 84 Calcium 7.3 L Assessment/Plan All Active Problems (Last Reviewed 08/13/19 @ 14:37 by Emmanuelle Van) C. difficile colitis (Acute) GRETEL (acute kidney injury) (Acute) History of carpal tunnel release of both wrists (Acute) Hx of arthroscopic knee surgery (Acute) Hyponatremia (Acute) Nausea & vomiting (Acute) Diarrhea with dehydration (Acute) Acute bronchitis (Resolved) 1. GRETEL likely due to dehydration from cdiff colitis. Baseline creatinine 1.1 in Dec 2018 increased to 3.2 on 08/04/19 to 3.38 on admission. Creatinine 2.11 yesterday to 2.9 today. No recent hypotensive episode of iv contrast exposure. Remains dry on exam. Continue with iv fluid support. Check renal US 2. Acute c diff colitis improving with oral vanco. Failed outpt flagyl. Will need to make sure insurance will cover continued treatement with oral vanco. 3. HTN hold lisinopril for now due to GRETEL 4. CKD stage 3 with baseline creatinine 1.1 eGFR 50-58cc/min. UA with protein and blood. Currently on DOAC for hx pulmonary emboli. Check UPCR. CT abdomen in 2017 with normal RK, cyst LK 5. pulmonary hypertension, emboli on anticoagulation 6. Anemia on oral iron.
--- NOTE | 2019-08-19 09:17 | PN_ITS ---
Patient Problems: Active and Suspected Problems (Last Reviewed 08/13/19 @ 14:37 by Emmanuelle Van) C. difficile colitis (Acute) GRETEL (acute kidney injury) (Acute) Subjective: Patient seen and examined. She feels better today, and says diarrhea is much better. She denies any fever, chills, palpitations or dizziness, diarrhea or v omiting. Review of systems was otherwise negative. Labs and vitals reviewed. Cr is up to 2.96 today, after trending down to 2.11 yesterday. Patient admits to poor oral intake yesterday. Hemoglobin has dropped to 7.7, with a baseline of ~ 9. There is no evidence of bleeding. Vitals/I&O's: Vital Signs Temp Pulse Resp BP Pulse Ox 98.3 F 83 18 151/79 H 97 08/19/19 05:31 08/19/19 05:31 08/19/19 05:31 08/19/19 05:31 08/19/19 05:31 Oxygen Delivery Method Room Air Weight: 256 lb 6.362 oz Body Mass Index (BMI) 47.6 Intake and Output for Last 24 Hours 08/17/19 08/18/19 08/19/19 23:59 23:59 23:59 Intake Total 5009.58 / 5009.58 1200 / 1200 Output Total 400 / 400 100 / 100 Balance 4609.58 / 4609.58 1100 / 1100 General: Alert, Oriented x3, Cooperative, No apparent distress HEENT: Atraumatic, PERRLA, EOMI, Normocephalic Oral: Moist Mucosa Neck: Supple, No JVD, Negative Carotid Bruits Lungs: Clear to auscultation, Normal air movement, No rhonchi, No wheeze, No rales Cardiovascular: Regular rate, Regular Rhythm, Normal S1, Normal S2, No murmurs Abdomen: Bowel Sounds Present, Soft, Non Tender, Non-Distended, No Hepato- splenomegaly Extremities: No clubbing, No cyanosis, No edema, Capillary Refill Less than 3 Seconds Skin: No rashes, No breakdown Musculoskeletal: No Tenderness to Palpation of Joints or Extremities Lymphatic: No Cervical, Supraclavicular, or Inguinal Adenopathy Neurological: Cranial nerves II-XII grossly intact, Neuro grossly intact, Motor Exam 5/5 strength throughout Psych/Mental Status: Normal Affect, Appropriate, Alert and oriented to time, place, person, mood and affect Laboratory Results 08/19/19 05:25: WBC 4.3 L, RBC 2.29 L, Hgb 7.7 L, Hct 24.1 L, MCV 105.2 H, MCH 33.6 H, MCHC 32.0, RDW Std Deviation 72.8 H, RDW Coeff of Yuri 18.8 H, Plt Count 94 L, MPV 9.8, Immature Gran % (Auto) 0.500, Neut % (Auto) 52.7, Lymph % (Auto) 28.9, [place] % (Auto) 10.6 H, Eos % (Auto) 6.6 H, Baso % (Auto) 0.7, Absolute Neuts (auto) 2.2, Absolute Lymphs (auto) 1.23, Nucleated RBC % 0, Differential Comment SCANNED, Anisocytosis 1+ 08/19/19 05:25: Sodium 142, Potassium 4.8, Chloride 118 H, Carbon Dioxide 17.0 L , Anion Gap 7, BUN 25 H, Creatinine 2.96 H, Estim Creat Clear Calc 12.96, Est GFR (MDRD) Af Amer 20 L, Est GFR (MDRD) Non-Af 17 L, BUN/Creatinine Ratio 8.4 L, Glucose 84, Calcium 7.3 L Current Medications Acetaminophen (Tylenol) 650 mg PO Q6H PRN PRN PRN Reason: Fever, headache, pain [facility] Last Admin: 08/18/19 09:16 Dose: 100 mg Documented by: Apixaban (Eliquis) 5 mg PO BID [facility] Last Admin: 08/18/19 21:41 Dose: 5 mg Documented by: Atorvastatin Calcium (Lipitor) 5 mg PO QHS [facility] Last Admin: 08/18/19 21:41 Dose: 5 mg Documented by: [facility]in) [facility] Last Admin: 08/18/19 17:25 Dose: 600 mg Documented by: Sodium Chloride () 250 mls @ 15 mls/hr IV .[id number] PRN PRN Reason: SALINE FLUSH Levothyroxine Sodium (Synthroid) 125 mcg PO DAILY@0600 [facility] Last Admin: 08/19/19 05:44 Dose: 125 mcg Documented by: Ondansetron HCl (Zofran) 4 mg IV Q8H PRN PRN PRN Reason: NAUSEA/VOMITING Last Admin: 08/18/19 10:39 Dose: 4 mg Documented by: Pantoprazole Sodium (Protonix) 20 mg PO DAILY [facility] Last Admin: 08/18/19 09:16 Dose: 20 mg Documented by: Polysaccharide Iron Complex (Ferrex 150) 150 mg PO DAILY [facility] Last Admin: 08/18/19 09:16 Dose: 150 mg Documented by: Potassium Chloride (K-Dur) 10 meq PO DAILY [facility] Last Admin: 08/18/19 09:16 Dose: 10 meq Documented by: Prochlorperazine Edisylate (Compazine Iv) 5 mg IV Q4H PRN PRN PRN Reason: Breakthrough nausea/vomiting Sodium Chloride () 10 - 40 ml IV UD PRN PRN Reason: SALINE FLUSH Last Admin: 08/18/19 02:40 Dose: 10 ml Documented by: Vancomycin HCl () 125 mg PO Q6 [facility] Last Admin: 08/19/19 05:44 Dose: 125 mg Documented by: Medical Necessity - Tobacco Use Smoking Status: Never smoker Assessment/Plan All Active Problems (Last Reviewed 08/13/19 @ 14:37 by Emmanuelle Van) C. difficile colitis (Acute) GRETEL (acute kidney injury) (Acute) History of carpal tunnel release of both wrists (Acute) Hx of arthroscopic knee surgery (Acute) Hyponatremia (Acute) Nausea & vomiting (Acute) Diarrhea with dehydration (Acute) Acute bronchitis (Resolved) 1. C Diff colitis * diarrhea has resolved * on PO vancomycin, will continue * tolerating oral diet * continue hydrating with IVF NS * 2. GRETEL on CKD 3 * CR was 3.38 on admission, baseline is ~ 1.2. Cr trended down to 2.11 yesterday, but is up to 2.96 today * unsure if it is her new baseline, or is GRETEL on CKD, or a combination of both * will get renal USG * continue hydration with IVF and consult nephrology * * 3. Non anion gap metabolic acidosis * bicarb is up to 17 today, was 18 on admission * anion gap is 7 * likely due to diarrhea from C Diff; should improve since diarrhea has stopped * 4. Anemia * Hb is down to 7.7 today; baseline since 2018 is ~ 11 * is a macrocytic, normochromic anemia * Iron studies done in July 2019 showed iron saturation of 88.9% with elevated ferritin of 3.12 and low total iron binding capacity of 180. * Vitamin B12 was high and folate was within normal limits. * Has been following up with Dr. Kiser on outpatient basis. To continue. * transfuse if Hb drops to <7 * 5. Hypothyroidism: on synthroid 7. Hypertension: * fairly controlled. * on lisinopril. * 8.History of bilateral PE: on apixaban. DVT prophylaxis: on eliquis. Code Visit Inpatient E&M: 33295 Subs Hosp L3
[2019-08-19 10:42] VITALS: BP 147/78; PULSE 89; RESP 16; TEMP 36.7; O2SAT 93
[2019-08-19] MEDS: APIXABAN 5 MG TABLET PO ×2 (11:00→22:58)
[2019-08-19] MEDS: Pantoprazole Sodium 20 MG Tablet PO (11:00)
[2019-08-19] MEDS: Iron Polysaccharide Complex 150 MG CAPSULE PO (11:00)
[2019-08-19] MEDS: Allopurinol 100 MG Tablet PO (11:00)
[2019-08-19] MEDS: Gabapentin 600 MG Tablet PO ×2 (11:00→17:17)
[2019-08-19 14:16] LABS: Urine Sodium 35 mmol/L (Not Establ.)
[2019-08-19 16:45] VITALS: BP 147/70; PULSE 91; RESP 18; TEMP 36.8; O2SAT 97
[2019-08-19] MEDS: guaiFENesin 10 ML UDC (200MG/10ML) PO (18:27)
[2019-08-19] MEDS: Atorvastatin Calcium 10 MG Tablet 5 MG PO (22:58)
[2019-08-19 23:05] VITALS: BP 141/76; PULSE 93; RESP 18; TEMP 37.1; O2SAT 94
[2019-08-20] MEDS: Levothyroxine 125 MCG Tablet PO (05:49)
[2019-08-20] MEDS: 0.9% NaCl Peripheral Flush Adult/Peds IV (05:50)
[2019-08-20 05:54] VITALS: BP 132/87; PULSE 85; RESP 16; TEMP 36.7; O2SAT 97
--- NOTE | 2019-08-20 05:55 | US_ITS ---
STUDY: RENAL ULTRASOUND - COMPLETE REASON FOR EXAM: Female, 73 years old. History of acute renal failure. TECHNIQUE: Ultrasound evaluation of the kidneys was performed with real-time and static ohara-scale imaging. COMPARISON: Comparison is made with prior examination dated April 02, 2012. FINDINGS: RIGHT KIDNEY: Normal location of the right kidney, which is normal in size. The right kidney measures 10 cm x 4.8 size by 4.7 cm. There is a normal cortex of the right kidney. The renal cortex measures 1.2 cm. 2 cysts are seen in the right kidney. The larger measures 1.4 cm x 1.4 cmx 1.1 cm. There are no right renal calculi. There is no right hydronephrosis. DISTAL RIGHT URETER: There is non-visualization of the distal right ureter. There is no demonstrated right ureterovesical junction calculus. There is no demonstrated right ureteral jet. LEFT KIDNEY: with mild renal atrophy. The left kidney measures 8.5 cm x 4 cm x 4.1 cm. There is diffuse thinning of the renal cortex. The renal cortex measures 0.9 cm. There is a 1.8 cm x 2 cm x 2 cm left renal cyst. There are no left renal calculi. There is no left hydronephrosis. DISTAL LEFT URETER: There is non-visualization of the distal left ureter. There is no demonstrated left ureterovesical junction calculus. There is no demonstrated left ureteral jet. Ascites is seen within the abdomen. BLADDER: The distended urinary bladder has a volume of 142 ml. There is a normal wall thickness of the distended urinary bladder. There is no demonstrated mass within the urinary bladder. There are no demonstrated bladder calculi. US/Kidney and Bladder IMPRESSION: Small bilateral renal cysts. Atrophy of the left. Small amount of ascites. Electronically Signed: Mg Meraz, at 12:57 EDT , Service support ,
[2019-08-20 06:04] LABS: Absolute Lymphocyte Count 1.62 X10^3/uL (0.83-4.51); Absolute Neutrophil Count 2.7 X10^3/uL (2.0-7.7); Basophil# 0.04 X10^3/uL; Basophil% 0.8 % (0-1); Eosinophil# 0.36 X10^3/uL; Eosinophils% 6.9 % (0-5); Hematocrit 31.7 % (37-47); Hemoglobin 9.3 g/dL (12.0-15.0); Lymphocyte # 1.62 X10^3/ul (4.0); Lymphocyte % 31.2 % (19-41); Mean Corp Hgb Conc 29.3 g/dL (32-36); Mean Corpuscular Hgb 33.2 pg (27.0-32.0); Mean Corpuscular Volume 113.2 fL (81-99); Mean Platelet Vol. 10.9 fl (6.2-12.0); Monocyte# 0.43 X10^3/uL; Monocyte% 8.3 % (0-10); NRBC Flagged by Analyzer 0 % (0-5); Neutrophil # 2.72 X10^3/uL (2.7-7.7); Neutrophil % 52.2 % (47-70); POSITIVE MORPHOLOGY YES; Platelet Count 91 K/mm3 (150-450); RBC Distribution Width CV 18.3 % (11.6-14.6); RBC Distribution Width SD 77.9 fl (35.1-43.9); White Blood Count 5.2 K/mm3 (4.4-11.0)
[2019-08-20 06:13] LABS: Differential Indicated SCAN CRITERIA MET
[2019-08-20 06:25] LABS: Anion Gap 8 (5-15); BUN 26 mg/dL (7-18); BUN/Creat Ratio 8.9 RATIO (10-20); Calcium,Total 7.6 mg/dL (8.5-10.1); Chloride 116 mmol/L (98-107); Creatinine, Serum 2.92 mg/dL (0.55-1.02); EST Glomerular Filtration Rate 17 mL/min (>60); Est Glom Filt Rate - Afr Amer 20 mL/min (>60); Estimated Creatinine Clearance 13.14 ml/min; Glucose 82 mg/dL (74-106); Potassium 5.3 mmol/L (3.5-5.1); Sodium Level 136 mmol/L (136-145)
[2019-08-20 06:57] LABS: Anisocytosis 1+; Differential Comment SCANNED
--- NOTE | 2019-08-20 08:38 | PCM.PN.REN ---
Patient Problems: Active and Suspected Problems (Last Reviewed 08/13/19 @ 14:37 by Emmanuelle Van) C. difficile colitis (Acute) GRETEL (acute kidney injury) (Acute) Subjective: diarrhea resolved. Complains of a cough. No nausea, vomiting. Leg swelling from yesterday imprved this morning. Asked about vanco po coverage on discharge. - Physical Exam General: Alert, Oriented x3, Cooperative, No apparent distress Neck: Supple Lungs: - - crackles bases Cardiovascular: Regular rate Abdomen: Bowel Sounds Present, Soft, Non Tender, Non-Distended, Obese Extremities: No edema Musculoskeletal: No Muscle Wasting Psych/Mental Status: Alert and oriented to time, place, person, mood and affect Vital Signs Temp Pulse Resp BP Pulse Ox 98.1 F 85 16 132/87 H 97 08/20/19 05:54 08/20/19 05:54 08/20/19 05:54 08/20/19 05:54 08/20/19 05:54 Oxygen Delivery Method Room Air Weight: 116.3 kg Body Mass Index (BMI) 47.6 Intake and Output for Last 24 Hours 08/18/19 08/19/19 08/20/19 23:59 23:59 23:59 Intake Total 5009.58 / 5009.58 4400 / 4400 200 / 200 Output Total 400 / 400 400 / 400 Balance 4609.58 / 4609.58 4000 / 4000 200 / 200 Laboratory Tests Past 24 Hrs 08/19/19 08/19/19 08/19/19 14:00 14:00 14:03 WBC RBC Hgb Hct MCV MCH MCHC RDW Std Deviation RDW Coeff of Yuri Plt Count MPV Immature Gran % (Auto) Neut % (Auto) Lymph % (Auto) [place] % (Auto) Eos % (Auto) Baso % (Auto) Absolute Neuts (auto) Absolute Lymphs (auto) Nucleated RBC % Differential Comment Anisocytosis Sodium Potassium Chloride Carbon Dioxide Anion Gap BUN Creatinine Estim Creat Clear Calc Est GFR (MDRD) Af Amer Est GFR (MDRD) Non-Af BUN/Creatinine Ratio Glucose Calcium U Random Total Protein 204.0 H Ur Random Sodium 35 Urine Creatinine 117.00 08/20/19 08/20/19 05:40 05:40 WBC 5.2 RBC 2.80 L Hgb 9.3 L Hct 31.7 L MCV 113.2 H D MCH 33.2 H MCHC 29.3 L RDW Std Deviation 77.9 H RDW Coeff of Yuri 18.3 H Plt Count 91 L MPV 10.9 Immature Gran % (Auto) 0.600 Neut % (Auto) 52.2 Lymph % (Auto) 31.2 [place] % (Auto) 8.3 Eos % (Auto) 6.9 H Baso % (Auto) 0.8 Absolute Neuts (auto) 2.7 Absolute Lymphs (auto) 1.62 Nucleated RBC % 0 Differential Comment SCANNED Anisocytosis 1+ Sodium 136 Potassium 5.3 H Chloride 116 H Carbon Dioxide 12.0 L Anion Gap 8 BUN 26 H Creatinine 2.92 H Estim Creat Clear Calc 13.14 Est GFR (MDRD) Af Amer 20 L Est GFR (MDRD) Non-Af 17 L BUN/Creatinine Ratio 8.9 L Glucose 82 Calcium 7.6 L U Random Total Protein Ur Random Sodium Urine Creatinine Medical Necessity - Tobacco Use Smoking Status: Never smoker Assessment/Plan All Active Problems (Last Reviewed 08/13/19 @ 14:37 by Emmanuelle Van) C. difficile colitis (Acute) GRETEL (acute kidney injury) (Acute) History of carpal tunnel release of both wrists (Acute) Hx of arthroscopic knee surgery (Acute) Hyponatremia (Acute) Nausea & vomiting (Acute) Diarrhea with dehydration (Acute) Acute bronchitis (Resolved) 1. GRETEL due to dehydration from cdiff colitis. Baseline creatinine 1.1 in Dec 2018. Creatinine 2.9 today. Continue iv fluids with bicarb replacement 2. Acute c diff colitis improving with oral vanco. 3. Hyperkalemia due to acidosis, follow low K diet 4. NAG Metabolic acidosis start bicarb gtt 5. HTN hold lisinopril for now due to GRETEL. 6. CKD stage 3 with baseline creatinine 1.1 eGFR 50-58cc/min in Dec 2018. UPCR 7. pulmonary hypertension, emboli on anticoagulation 8. Anemia on oral iron.
[2019-08-20 08:52] VITALS: BP 143/77; PULSE 85; RESP 18; TEMP 36.8; O2SAT 96
[2019-08-20] MEDS: Gabapentin 600 MG Tablet PO ×2 (08:54→18:11)
[2019-08-20] MEDS: Pantoprazole Sodium 20 MG Tablet PO (08:54)
[2019-08-20] MEDS: Iron Polysaccharide Complex 150 MG CAPSULE PO (08:54)
[2019-08-20] MEDS: APIXABAN 5 MG TABLET PO ×2 (08:54→21:40)
[2019-08-20] MEDS: Allopurinol 100 MG Tablet PO (08:54)
[2019-08-20] MEDS: Sodium Bicarbonate 75 MEQ in 0.45% Normal Saline 1,000 ML 75 ML IV (13:00)
[2019-08-20 15:15] VITALS: BP 149/89; PULSE 85; RESP 18; TEMP 36.9; O2SAT 98
--- NOTE | 2019-08-20 15:40 | CASEMGMT ---
SANDRA MEYER called [facility] regarding PO Vanco at discharge. Vanco cost is $556.00 and requires prior auth. SANDRA MEYER called patient prescription insurance and completed prior auth and was approved. Ref#[id number]. SANDRA MEYER called [facility] pharmacy and they ran prescription again and new samson is $205.86. SANDRA MEYER to update patient and hospitalist.
--- NOTE | 2019-08-20 16:18 | PN_ITS ---
Patient Problems: Active and Suspected Problems (Last Reviewed 08/13/19 @ 14:37 by Emmanuelle Van) C. difficile colitis (Acute) GRETEL (acute kidney injury) (Acute) Subjective: Patient was seen and examined today, I talked with case management about obtaining vancomycin capsules for the patient on discharge, we have received preapproval from her insurance and the cost is around $200. Patient's renal function today is slightly worse than yesterday, I talked with nephrology about her care and nephrology placed her on IV fluids. Patient has no complaints of any abdominal pain, fever, or chills. - Physical Exam General: Alert, Oriented x3, Cooperative, No apparent distress, Well developed HEENT: Atraumatic, PERRLA, EOMI, Normocephalic Oral: Moist Mucosa Neck: Supple, Trachea Midline, Thyroid Normal Size and Texture Lungs: Clear to auscultation, Normal air movement, No rhonchi, No wheeze Cardiovascular: Regular rate, Regular Rhythm, Normal S1, Normal S2, No murmurs, PMI Normal, No Gallop Abdomen: Bowel Sounds Present, Soft, Non Tender, Non-Distended Extremities: No clubbing, No cyanosis, No edema, Capillary Refill Less than 3 Seconds Skin: No rashes, No breakdown Musculoskeletal: No Tenderness to Palpation of Joints or Extremities Neurological: Cranial nerves II-XII grossly intact, Neuro grossly intact, Sensory exam intact to light touch and pain, Coordination normal Psych/Mental Status: Normal Affect, Appropriate, Alert and oriented to time, place, person, mood and affect Vital Signs Temp Pulse Resp BP Pulse Ox 98.4 F 85 18 149/89 H 98 08/20/19 15:15 08/20/19 15:15 08/20/19 15:15 08/20/19 15:15 08/20/19 15:15 Oxygen Delivery Method Room Air Weight: 116.3 kg Body Mass Index (BMI) 47.6 Intake and Output for Last 24 Hours 08/18/19 08/19/19 08/20/19 23:59 23:59 23:59 Intake Total 5009.58 / 5009.58 4400 / 4400 560 / 560 Output Total 400 / 400 400 / 400 250 / 250 Balance 4609.58 / 4609.58 4000 / 4000 310 / 310 Laboratory Tests Past 24 Hrs 08/20/19 08/20/19 05:40 05:40 WBC 5.2 RBC 2.80 L Hgb 9.3 L Hct 31.7 L MCV 113.2 H D MCH 33.2 H MCHC 29.3 L RDW Std Deviation 77.9 H RDW Coeff of Yuri 18.3 H Plt Count 91 L MPV 10.9 Immature Gran % (Auto) 0.600 Neut % (Auto) 52.2 Lymph % (Auto) 31.2 [place] % (Auto) 8.3 Eos % (Auto) 6.9 H Baso % (Auto) 0.8 Absolute Neuts (auto) 2.7 Absolute Lymphs (auto) 1.62 Nucleated RBC % 0 Differential Comment SCANNED Anisocytosis 1+ Sodium 136 Potassium 5.3 H Chloride 116 H Carbon Dioxide 12.0 L Anion Gap 8 BUN 26 H Creatinine 2.92 H Estim Creat Clear Calc 13.14 Est GFR (MDRD) Af Amer 20 L Est GFR (MDRD) Non-Af 17 L BUN/Creatinine Ratio 8.9 L Glucose 82 Calcium 7.6 L Medical Necessity - Tobacco Use Smoking Status: Never smoker Assessment/Plan All Active Problems (Last Reviewed 08/13/19 @ 14:37 by Emmanuelle Van) C. difficile colitis (Acute) GRETEL (acute kidney injury) (Acute) Hyponatremia (Resolved) Nausea & vomiting (Resolved) Diarrhea with dehydration (Acute) Acute bronchitis (Resolved) #1 C. difficile colitis-continue p.o. vancomycin #2 acute kidney injury on a backdrop of chronic kidney disease stage III- nephrology is participating in her care, monitor BMP #3 chronic anemia-etiology unknown, continue to monitor #4 hypertension #5 morbid obesity Code Visit Inpatient E&M: 18431 Subs Hosp L2
[2019-08-20] MEDS: guaiFENesin 10 ML UDC (200MG/10ML) PO (19:49)
[2019-08-20 21:15] VITALS: BP 155/71; PULSE 89; RESP 16; TEMP 36.9; O2SAT 98
[2019-08-20] MEDS: Atorvastatin Calcium 10 MG Tablet 5 MG PO (21:40)
[2019-08-20 23:00] VITALS: PULSE 89; O2SAT 98
[2019-08-21 03:15] VITALS: BP 131/77; PULSE 89; RESP 16; TEMP 37.1; O2SAT 95
[2019-08-21] MEDS: Sodium Bicarbonate 75 MEQ in 0.45% Normal Saline 1,000 ML 75 ML IV (03:42)
[2019-08-21] MEDS: Levothyroxine 125 MCG Tablet PO (06:01)
[2019-08-21 06:18] LABS: Absolute Lymphocyte Count 1.07 X10^3/uL (0.83-4.51); Absolute Neutrophil Count 2.2 X10^3/uL (2.0-7.7); Basophil# 0.03 X10^3/uL; Basophil% 0.8 % (0-1); Eosinophil# 0.31 X10^3/uL; Eosinophils% 7.8 % (0-5); Hematocrit 22.7 % (37-47); Hemoglobin 7.3 g/dL (12.0-15.0); Lymphocyte # 1.07 X10^3/ul (4.0); Mean Corp Hgb Conc 32.2 g/dL (32-36); Mean Corpuscular Volume 102.7 fL (81-99); Mean Platelet Vol. 10.8 fl (6.2-12.0); Monocyte# 0.33 X10^3/uL; Monocyte% 8.3 % (0-10); NRBC Flagged by Analyzer 0 % (0-5); Neutrophil # 2.21 X10^3/uL (2.7-7.7); Neutrophil % 55.6 % (47-70); POSITIVE MORPHOLOGY YES; Platelet Count 95 K/mm3 (150-450); RBC Distribution Width CV 17.5 % (11.6-14.6); RBC Distribution Width SD 65.9 fl (35.1-43.9); Red Blood Count 2.21 M/mm3 (4.2-5.4)
[2019-08-21 06:24] LABS: Differential Indicated SCAN CRITERIA MET
[2019-08-21 06:45] LABS: Albumin, Serum 1.7 g/dL (3.2-5.0); BUN 26 mg/dL (7-18); BUN/Creat Ratio 9.5 RATIO (10-20); Calcium,Total 7.3 mg/dL (8.5-10.1); Chloride 113 mmol/L (98-107); Creatinine, Serum 2.74 mg/dL (0.55-1.02); EST Glomerular Filtration Rate 18 mL/min (>60); Est Glom Filt Rate - Afr Amer 22 mL/min (>60); Glucose 81 mg/dL (74-106); Phosphorus 3.5 mg/dL (2.5-4.9); Sodium Level 135 mmol/L (136-145)
[2019-08-21 06:48] LABS: Anisocytosis 1+; Differential Comment SCANNED
[2019-08-21 08:32] VITALS: BP 133/70; PULSE 80; RESP 16; TEMP 36.8; O2SAT 98
[2019-08-21] MEDS: Iron Polysaccharide Complex 150 MG CAPSULE PO (08:42)
[2019-08-21] MEDS: Gabapentin 600 MG Tablet PO (08:42)
[2019-08-21] MEDS: Allopurinol 100 MG Tablet PO (08:42)
[2019-08-21] MEDS: Pantoprazole Sodium 20 MG Tablet PO (08:42)
[2019-08-21] MEDS: APIXABAN 5 MG TABLET PO (08:42)
--- NOTE | 2019-08-21 11:30 | PCM.PN.BLA ---
Progress Note renal fxn improved. Cr improving. Acidosis better. Diarrhea improved vitals stable. miild leg edema from third spacing with iv fluids, poor protein intake from diarrhea ok to dc home from renal standpoint. Follow up on Aug 26 as previously scheduled. expressed importance of continuing oral vanco for her cdiff despite cost. DW with hospitalist
--- NOTE | 2019-08-21 13:27 | DCINST_ITS ---
- Discharge Diagnoses Current Active Problems: Current Active and Chronic Problems (Last Updated 08/20/19 @ 16:22 by Sylvester Hendrix DO) C. difficile colitis (Acute) GRETEL (acute kidney injury) (Acute) You will use the following diet at home:: No restrictions Your food should be the consistency of: Regular Your liquids should be the consistency of: Regular/Thin Discharge Activity: Return to Normal Activity Weight Bearing Status: Full weight bearing Additional Instructions: GET A RENAL PROFILE DRAWN ON 08/24/19 Allergies/Adverse Reactions: Allergies adhesive Allergy (Verified 08/17/19 22:22) Rash Penicillins [PCN] Allergy (Verified 08/17/19 22:22) Swelling Medications to take at Discharge Gabapentin [Neurontin] 600 mg PO BID PRN PRN 04/09/15 Simvastatin 10 mg PO QHS 04/09/15 Albuterol IH (ProAir) [Proair Hfa] 1 puff INHALATION Q6H PRN PRN 11/09/15 Allopurinol [Zyloprim] 100 mg PO DAILY 11/09/15 Apixaban [Eliquis] 5 mg PO BID #60 tab 11/10/15 Omeprazole [Prilosec] 20 mg PO DAILY PRN PRN 04/07/17 Cyanocobalamin (Vitamin B-12) [B-12 Compliance] 1,000 mcg SUBCUT QMONTH 06/29/17 Iron Polysaccharide Complex [Ferrex 150] 150 mg PO DAILY 08/12/19 Levothyroxine [Synthroid] 125 mcg PO DAILY 08/12/19 Acetaminophen [Tylenol Tablet] 650 mg PO Q6H PRN PRN tablet 08/21/19 Vancomycin [Vancocin] 125 mg PO Q6H #40 capsule 08/21/19 The following prescriptions were given: Vancomycin [Vancocin] 125 mg PO Q6H #40 capsule Primary Care Physician: Rakesh Ramos Chi, MD [Primary Care Provider] - Please follow up with your Primary Care Physician in: in 2-3 weeks Test Results: Test results from this visit will be discussed in further detail at your follow- up appointment, if applicable. Please Follow Up With: Samantha Galan DO When: next week
--- NOTE | 2019-08-22 17:19 | DS.PCM_ITS ---
Discharge Date and Diagnosis Date of Admission: 08/17/19 Date of Discharge: 08/21/19 - Primary Discharge Diagnosis 1 C. difficile colitis #2 acute kidney injury on a backdrop of chronic kidney disease stage III #3 chronic anemia-etiology unknown #4 hypertension #5 morbid obesity - Secondary Discharge Diagnosis Chronic Problems (Last Updated 08/20/19 @ 16:22 by Sylvester Hendrix DO) Hx of cholecystectomy (Chronic) Hx of appendectomy (Chronic) Hx of tubal ligation (Chronic) Hypertension (Chronic) Sjogrens syndrome (Chronic) Chronic kidney disease (CKD), stage III (moderate) (Chronic) History of fibromyalgia (Chronic) Pulmonary embolism, bilateral (Chronic) Right ventricular dysfunction (Chronic) Pulmonary HTN (Chronic) Morbid obesity with BMI of 45.0-49.9, adult (Chronic) Hypothyroidism (Chronic) Hyperuricemia (Chronic) HLD (hyperlipidemia) (Chronic) Anemia (Chronic) Hospital Course and Treatment Operations: None Procedures: None Summary of Care Provided: The patient is a 73 year old F who was seen in the emergency room at [facility] with chief complaint of dry heaves, diarrhea, and weakness. Patient had been diagnosed as an outpatient with C. difficile, she states she has had diarrhea for 6 to 7 weeks, 2 weeks ago she had been started on Flagyl- she could not afford oral vancomycin. In the emergency room included labs which showed a normal white blood cell count, patient's hemoglobin was 9, she is creatinine was elevated at 3.38. Patient was admitted to [place] [address], given IV fluids, seen in consultation by nephrology, and placed on p.o. vancomycin. Arrangements were made for the patient to get vancomycin orally at a reduced cost after she was discharged from the hospital. Patient's creatinine decreased somewhat during her hospital stay, she was instructed to follow-up with nephrology as an outpatient after she was discharged. On 08/21/2019, patient was seen and examined: On examination she appeared in good health and spirits. Vital signs as documented. Skin warm and dry and without overt rashes. Neck without JVD. Lungs clear. Heart exam notable for regular rhythm, normal sounds and absence of murmurs, rubs or gallops. Abdomen unremarkable and without evidence of organomegaly, masses, or abdominal aortic enlargement. Patient is morbidly obese. Extremities nonedematous. Neuro: Cranial nerves II through XII are grossly intact, no focal motor deficits were noted, sensation to light touch and pinprick is intact. Psych: Patient is alert and oriented x3, she does not appear anxious or depressed On 08/21/2019, patient was seen and examined and felt to be in stable condition for discharge home - Physical Exam Vital Signs Temp Pulse Resp BP Pulse Ox 98.2 F 80 16 133/70 H 98 08/21/19 08:32 08/21/19 08:32 08/21/19 08:32 08/21/19 08:32 08/21/19 08:32 Oxygen Delivery Method Room Air Weight: 116.3 kg Body Mass Index (BMI) 47.6 Intake and Output for Last 24 Hours 08/20/19 08/21/19 08/22/19 23:59 23:59 23:59 Intake Total 1315 / 1715 2428.75 / 2428.75 Output Total 250 / 250 Balance 1065 / 1465 2428.75 / 2428.75 Discharge Activity: Return to Normal Activity Weight Bearing Status: Full weight bearing Home Medications: Medications to take at Discharge Gabapentin [Neurontin] 600 mg PO BID PRN PRN 04/09/15 Simvastatin 10 mg PO QHS 04/09/15 Albuterol IH (ProAir) [Proair Hfa] 1 puff INHALATION Q6H PRN PRN 11/09/15 Allopurinol [Zyloprim] 100 mg PO DAILY 11/09/15 Apixaban [Eliquis] 5 mg PO BID #60 tab 11/10/15 Omeprazole [Prilosec] 20 mg PO DAILY PRN PRN 04/07/17 Cyanocobalamin (Vitamin B-12) [B-12 Compliance] 1,000 mcg SUBCUT QMONTH 06/29/17 Iron Polysaccharide Complex [Ferrex 150] 150 mg PO DAILY 08/12/19 Levothyroxine [Synthroid] 125 mcg PO DAILY 08/12/19 Acetaminophen [Tylenol Tablet] 650 mg PO Q6H PRN PRN tab 08/21/19 Vancomycin [Vancocin] 125 mg PO Q6H #40 cap 08/21/19 Following Prescrptions Were Given to Patient: Vancomycin [Vancocin] 125 mg PO Q6H #40 cap Primary Care Physician: Rakesh Ramos Chi, MD [Primary Care Provider] - Please follow up with your Primary Care Physician in: in 2-3 weeks Please Follow Up With: Samantha Galan DO When: next week Please Follow Up With: Rakesh Ramos Chi, MD When: 2 to 3 weeks Disposition: Home Minutes spent on discharge:: 31 Patient Condition:: Stable Medical Necessity - Tobacco Use Smoking Status: Never smoker Meaningful Use Info Meaningful Use Diagnoses (Choose all that apply): None applicable Code Visit Inpatient E&M: 05777 Disch Hosp
--- NOTE | 2019-08-24 17:18 | CASEMGMT ---
RN CM Discharge Follow-Up Phone Call. Lace:?12??? Strata: 4 Discharge Date:?08/21/19 Adm Dx:???C-Dif Colitis Attempted discharge follow-up phone call. No answer. Message left for pt to return call to RN BETSY if she has any questions/concerns about the discharge instructions, follow-up appts, or medications. Phone number provided. Jimmy GUY RN CM
== END 2019-08-21 14:47 | disposition home or self-care (01) | DRG 372 ==
LOC: ED 23:54 → MS3 08-18 00:06
PROVIDERS: Internal Medicine Nephrology; Student in an Organized Health Care Education/Training Program; Admitting Provider Family Medicine; Emergency Provider Emergency Medicine; Family Provider Family Medicine Geriatric Medicine; PCP Family Medicine Geriatric Medicine; Referring Provider Family Medicine; Visit Provider Internal Medicine
DX: A04.72 Enterocolitis due to Clostridium difficile, not specified as recurrent (principal); N17.9 Acute kidney failure, unspecified; Z68.42 Body mass index [BMI] 45.0-49.9, adult; E87.2 Acidosis; E66.01 Morbid (severe) obesity due to excess calories; E03.9 Hypothyroidism, unspecified; N18.3 Chronic kidney disease, stage 3 (moderate); I12.9 Hypertensive chronic kidney disease with stage 1 through stage 4 chronic kidney disease, or unspecified chronic kidney disease; D64.9 Anemia, unspecified; Z86.711 Personal history of pulmonary embolism; Z79.02 Long term (current) use of antithrombotics/antiplatelets; E86.0 Dehydration; E87.5 Hyperkalemia; Z90.49 Acquired absence of other specified parts of digestive tract; I27.20 Pulmonary hypertension, unspecified; E78.5 Hyperlipidemia, unspecified
CPT/HCPCS: 36415; 76770; 80048; 80069; 81001; 82570; 84156; 84300; 84443; 85025; 97116; 97162; 97166; 97530; 97802; 99284; J7030; A4216; J2405

== ENCOUNTER → 2019-08-24 15:22 | Outpatient (CLI) | payer MEDICARE, SELFPAY ==
[2019-08-18 00:13] VITALS: BMI 47.6
[2019-08-24 17:43] LABS: BUN 31 mg/dL (7-18); BUN/Creat Ratio 11.2 RATIO (10-20); Calcium,Total 7.6 mg/dL (8.5-10.1); Chloride 110 mmol/L (98-107); Creatinine, Serum 2.77 mg/dL (0.55-1.02); EST Glomerular Filtration Rate 18 mL/min (>60); Est Glom Filt Rate - Afr Amer 22 mL/min (>60); Glucose 107 mg/dL (74-106); Phosphorus 3.7 mg/dL (2.5-4.9); Potassium 4.5 mmol/L (3.5-5.1); Sodium Level 135 mmol/L (136-145)
== END ==
PROVIDERS: Internal Medicine Nephrology; Family Provider Family Medicine Geriatric Medicine; PCP Family Medicine Geriatric Medicine; Referring Provider Internal Medicine; Visit Provider Internal Medicine
DX: N18.9 Chronic kidney disease, unspecified (principal)
CPT/HCPCS: 36415; 80069

== ENCOUNTER → 2019-09-03 16:43 | Outpatient (CLI) | payer MEDICARE, SELFPAY ==
[2019-08-18 00:13] VITALS: BMI 47.6
[2019-09-03 17:09] LABS: Absolute Lymphocyte Count 1.29 X10^3/uL (0.83-4.51); Absolute Neutrophil Count 4.1 X10^3/uL (2.0-7.7); Basophil# 0.05 X10^3/uL; Basophil% 0.8 % (0-1); Eosinophil# 0.26 X10^3/uL; Eosinophils% 4.2 % (0-5); Hematocrit 26.7 % (37-47); Hemoglobin 8.4 g/dL (12.0-15.0); Lymphocyte # 1.29 X10^3/ul (4.0); Lymphocyte % 20.9 % (19-41); Mean Corp Hgb Conc 31.5 g/dL (32-36); Mean Corpuscular Hgb 33.3 pg (27.0-32.0); Mean Platelet Vol. 10.3 fl (6.2-12.0); Monocyte# 0.47 X10^3/uL; Monocyte% 7.6 % (0-10); NRBC Flagged by Analyzer 0 % (0-5); Neutrophil # 4.07 X10^3/uL (2.7-7.7); Platelet Count 153 K/mm3 (150-450); RBC Distribution Width CV 16.6 % (11.6-14.6); Red Blood Count 2.52 M/mm3 (4.2-5.4); White Blood Count 6.2 K/mm3 (4.4-11.0)
[2019-09-03 17:22] LABS: ALB/GLOB Ratio 0.5 RATIO (0.9-2.4); AST(SGOT) 39 U/L (15-37); Alanine Aminotransfer ALT/SGPT 17 U/L (13-56); Alkaline Phosphatase 73 U/L (45-117); Anion Gap 6 (5-15); BUN 27 mg/dL (7-18); Calcium,Total 7.5 mg/dL (8.5-10.1); Chloride 115 mmol/L (98-107); Creatinine, Serum 2.69 mg/dL (0.55-1.02); EST Glomerular Filtration Rate 18 mL/min (>60); Est Glom Filt Rate - Afr Amer 22 mL/min (>60); Globulin 4.4 g/dL (2.2-4.2); Glucose 102 mg/dL (74-106); Potassium 4.4 mmol/L (3.5-5.1); Protein, Total 6.4 g/dL (6.4-8.2); Sodium Level 141 mmol/L (136-145)
== END ==
PROVIDERS: Family Provider Family Medicine Geriatric Medicine; PCP Family Medicine Geriatric Medicine; Visit Provider Family Medicine Geriatric Medicine
DX: D50.9 Iron deficiency anemia, unspecified (principal); N17.9 Acute kidney failure, unspecified
CPT/HCPCS: 36415; 80053; 85025

== ENCOUNTER → 2019-10-07 15:05 | Outpatient (CLI) | payer MEDICARE, SELFPAY ==
[2019-10-07 17:10] LABS: Albumin, Serum 1.8 g/dL (3.2-5.0); BUN 28 mg/dL (7-18); BUN/Creat Ratio 10.4 RATIO (10-20); Calcium,Total 7.2 mg/dL (8.5-10.1); Chloride 111 mmol/L (98-107); Creatinine, Serum 2.69 mg/dL (0.55-1.02); EST Glomerular Filtration Rate 18 mL/min (>60); Est Glom Filt Rate - Afr Amer 22 mL/min (>60); Glucose 107 mg/dL (74-106); Hematocrit 26.3 % (37-47); Hemoglobin 8.3 g/dL (12.0-15.0); Mean Corp Hgb Conc 31.6 g/dL (32-36); Mean Corpuscular Hgb 32.9 pg (27.0-32.0); Mean Corpuscular Volume 104.4 fL (81-99); Mean Platelet Vol. 10.2 fl (6.2-12.0); Phosphorus 2.6 mg/dL (2.5-4.9); Platelet Count 123 K/mm3 (150-450); Potassium 3.4 mmol/L (3.5-5.1); RBC Distribution Width CV 15.4 % (11.6-14.6); RBC Distribution Width SD 58.8 fl (35.1-43.9); Red Blood Count 2.52 M/mm3 (4.2-5.4); Sodium Level 139 mmol/L (136-145); White Blood Count 4.9 K/mm3 (4.4-11.0)
== END ==
PROVIDERS: Family Provider Family Medicine Geriatric Medicine; PCP Family Medicine Geriatric Medicine; Visit Provider Internal Medicine Nephrology
DX: N17.9 Acute kidney failure, unspecified (principal); D50.9 Iron deficiency anemia, unspecified
CPT/HCPCS: 36415; 80069; 85027

== ENCOUNTER 2020-04-04 18:04 | Inpatient (IN) | payer MEDICARE, SELFPAY ==
[2020-04-04] VITALS (14 sets, daily range): BP systolic 106–127; BP diastolic 49–77; PULSE 63–88; RESP 18–22; TEMP 36.4–36.7; O2SAT 2–100; BMI 53.6; BMI 52.7
--- NOTE | 2020-04-04 19:16 | EKG12_ITS ---
Test Reason : Blood Pressure : / mmHG Vent. Rate : 067 BPM Atrial Rate : 067 BPM P-R Int : 170 ms QRS Dur : 098 ms QT Int : 428 ms P-R-T Axes : -02 -12 -05 degrees QTc Int : 452 ms Normal sinus rhythm Normal ECG Confirmed by MCKENZIE BUSTAMANTE ([id number]), state editor GIOVANNI WASHINGTON ([id number]) on 04/11/2020 1:41:12 PM Referred By: SHELLY/LOUISA Confirmed By:MCKENZIE BUSTAMANTE
--- NOTE | 2020-04-04 19:17 | ED.VIS.DYS ---
History of Present Illness Chief Complaint: Shortness of Breath Informant: Patient Onset: Days Timing: Continuous Quality: Dyspnea on exertion Worsened by: Exertion Relieved by: Oxygen Associated Symptoms: Clear sputum, Cough - chronic, unchanged. Negative for: Chills, Fever, Rhinorrhea, Sore throat Chest Pain: None Narrative: Patient is a 74-year-old female with history of Sjogren's syndrome, CKD 3, fibromyalgia, PEs, pulmonary hypertension, hypothyroid, hyperlipidemia and chronic anemia presenting with shortness of breath. Patient states she had generalized weakness and worsening shortness of breath over the past 3 to 4 days. Her home health aide checked her home oxygen was in the 80s. Per squad report she was 83% prior to arrival. Patient does not wear oxygen at baseline. States she had worsening swelling of her extremities. She states she has had extremity swelling for the past year but has been worse past few days. She is having increased difficulty ambulating around her house because of the swelling and shortness of breath. She has a chronic cough of the past year that is productive of sputum but is unchanged. Denies any fever or chills. Denies any sick contacts. She denies associated chest pain. States she has a history of blood clots but is no longer on anticoagulants but does not know why. She does have a history of anemia and follows with anemia clinic. Past Medical History - Allergies and Home Meds Allergies/Adverse Reactions: Allergies adhesive Allergy (Verified 04/04/20 18:06) Rash Penicillins [PCN] Allergy (Verified 04/04/20 18:06) Swelling Primary Care Physician: Josesito Senior MD [Primary Care Provider] - Past Medical History: - - Fibrillation, C. difficile colitis, chronic kidney disease, hypertension, Sjogren's syndrome, CKD 3, fibromyalgia, history of PE, pulmonary hypertension, hypothyroid, hyperlipidemia, chronic anemia Surgical History: appendectomy, cholecystectomy, - - Extensor tendon surgery on both hands, bilateral carpal tunnel, tubal ligation Lives: Spouse/ Significant Other Smoking Status: Never smoker - Family History Maternal Family History: Family History (Last Reviewed 08/13/19 @ 14:37 by Emmanuelle Van) Brother Bone cancer Sister Lung cancer Sister Cervical cancer Hypertension Mother Uterine cancer Father Hypertension Myocardial infarction Brother Myocardial infarction Family History: Reports: Cancer Paternal Family History: Family History (Last Reviewed 08/13/19 @ 14:37 by Emmanuelle Van) Brother Bone cancer Sister Lung cancer Sister Cervical cancer Hypertension Mother Uterine cancer Father Hypertension Myocardial infarction Brother Myocardial infarction Family History: Reports: Heart Disease Review of Systems General: Reports: Malaise. Denies: Chills, Fever, Sweats Eyes: Denies: Visual changes - bilaterally, Diplopia ENT: Denies: Rhinorrhea, Sore throat Cardiovascular: Denies: Chest pain, Palpitations Respiratory: Reports: Dyspnea, Cough - Chronic x1 year/unchanged, Dyspnea on exertion Gastrointestinal: Denies: Abdominal pain, Nausea, Vomiting, Diarrhea, Melena, Hematochezia Genitourinary: Denies: Dysuria, Hematuria, Frequency Musculoskeletal: Denies: Back pain, Extremity Pain Skin: Denies: Rash, Wounds Neurological: Denies: Headache, Weakness, Numbness Physical Exam Vital Signs/Narrative: Vital Signs Temp Pulse Resp BP Pulse Ox 04/04/20 18:36 98 04/04/20 18:07 98.1 F 65 21 H 127/66 H 99 04/04/20 18:06 98.1 F 68 20 H 118/77 98 Inital Vital Signs reviewed: Yes General: Well nourished, Well developed, No Acute Distress Head: Normocephalic, Atraumatic Eyes: Perrl, EOMI ENT: Moist mucous membranes, No rhinorrhea, TM's clear Neck: Supple, Nontender Cardiovascular: Regular rate, Regular rhythm, No murmurs Respiratory: No distress, Chest nontender, - - Crackles at the left base Abdomen: Soft, Nontender, Normal bowel sounds, - - Distended abdomen. Negative for: Tender, Guarding, Pulsatile mass Back: Nontender, Normal Inspection Extremities: Nontender, Edema - Pitting edema up to the hips laterally Skin: No rash, Pallor Neurological: Alert, Oriented x3, Cranial nerves II-XII grossly intact, Normal Strength, Normal Sensation Psychological: Normal affect, Normal Mood Diagnostic/Tx/Re-eval Chest X-Ray - ED: 1 View, Read by ED Physician, Read by Radiologist Clinical Impression(s) from Imaging Studies Chest X-Ray 04/04/20 19:40 IMPRESSION: Diminished inspiratory effort. Atelectasis versus infiltrate at the lung bases. Electronically Signed: Edy Ch DO at 19:52 EDT Tel [phone], Service support , Laboratory Data 04/04/20 04/04/20 04/04/20 18:32 18:32 18:32 WBC 7.9 RBC 2.63 L Hgb 9.1 L Hct 28.2 L MCV 107.2 H MCH 34.6 H MCHC 32.3 RDW Std Deviation 64.4 H RDW Coeff of Yuri 16.5 H Plt Count 153 MPV 11.1 Immature Gran % (Auto) 0.600 Neut % (Auto) 61.0 Lymph % (Auto) 16.2 L Mathews % (Auto) 7.8 Eos % (Auto) 13.9 H Baso % (Auto) 0.5 Absolute Neuts (auto) 4.8 Absolute Lymphs (auto) 1.28 Nucleated RBC % 0 Sodium 138 Potassium 3.7 Chloride 103 Carbon Dioxide 27.0 Anion Gap 8 BUN 36 H Creatinine 2.81 H Estim Creat Clear Calc 14.10 Est GFR (MDRD) Af Amer 21 L Est GFR (MDRD) Non-Af 18 L BUN/Creatinine Ratio 12.8 Glucose 120 H Calcium 7.9 L Troponin I < 0.015 B-Natriuretic Peptide 109.9 H - Rhythm Strip Rhythm Strip: Sinus Rhythm Rate: 67 Ectopy: None - EKG Initial EKG Interpretation: Sinus Rhythm, - - Normal sinus rhythm at a rate of 67Normal intervalsNormal axisCompared to EKG on 04/07/2017 patient has a new T wave inversion in lead III with flattening of T waves in her precordial leads - Medical Decision Making Patient is evaluated for worsening shortness of breath and dyspnea on exertion. Patient has chronic lymphedema of her lower extremities but states is been worse lately. At home her pulse ox was 83% for EMS. At rest patient is 92 to 93% on room air. She does not wear oxygen at baseline. She is ambulated and dropped to 84%. Chest x-ray shows atelectasis versus infiltrate. Patient is on have a leukocytosis, fever acute cough or sputum production changes. I have a low suspicion for pneumonia at this time. We will not start antibiotics. patient's proBNP is mildly elevated but is actually below her baseline. Her troponin is normal. She does not have dynamic EKG changes. Given the patient's dyspnea on exertion, peripheral edema and hypoxia she is given IV Lasix. She has CKD but is at her baseline. She also has anemia which is at her baseline. Patient will be admitted to PCU for further cardiopulmonary monitoring. Did discuss with admitting physician the possibility of PE as a cause of her symptoms given her history. Patient is not a candidate for CTA given her CKD. At this time she will be watched but should she have any pulmonology deterioration, VQ scan to be ordered on the floor. ED Disposition - Plan for ED Patient: Disposition: Acute Care Hospital [facility] Diagnosis: Acute respiratory failure with hypoxia, Chronic kidney disease (CKD), stage III (moderate), Chronic anemia, Edema Referrals: Josesito Senior MD [Primary Care Provider] -
--- NOTE | 2020-04-04 19:40 | RAD_ITS ---
STUDY: X-RAY CHEST REASON FOR EXAM: Female, 74 years old. Shortness of breath for 3 to 4 days. Low oxygen saturation. History of hypertension. TECHNIQUE: PA and lateral views of the chest. COMPARISON: June 29, 2017. FINDINGS: There is a diminished inspiratory effort. There is atelectatic versus infiltrative changes at the lung bases. There is no demonstrated pleural abnormality. PICC line Normal mediastinum and susanna. Normal visualized pulmonary arteries. Normal visualized aortic arch and descending thoracic aorta. The thoracic spine is obscured by the mediastinum. There is degenerative osteoarthritis of the bilateral shoulders. There is no demonstrated abnormality of the visualized soft tissue structures of the upper abdomen. RAD/Chest PA and Lateral IMPRESSION: Diminished inspiratory effort. Atelectasis versus infiltrate at the lung bases. Electronically Signed: Edy Ch DO at 19:52 EDT Tel [phone], Service support ,
[2020-04-04 19:45] LABS: Absolute Lymphocyte Count 1.28 X10^3/uL (0.83-4.51); Absolute Neutrophil Count 4.8 X10^3/uL (2.0-7.7); Basophil# 0.04 X10^3/uL; Basophil% 0.5 % (0-1); Eosinophils% 13.9 % (0-5); Hematocrit 28.2 % (37-47); Hemoglobin 9.1 g/dL (12.0-15.0); Lymphocyte # 1.28 X10^3/ul (4.0); Lymphocyte % 16.2 % (19-41); Mean Corp Hgb Conc 32.3 g/dL (32-36); Mean Corpuscular Hgb 34.6 pg (27.0-32.0); Mean Corpuscular Volume 107.2 fL (81-99); Mean Platelet Vol. 11.1 fl (6.2-12.0); Monocyte# 0.62 X10^3/uL; Monocyte% 7.8 % (0-10); NRBC Flagged by Analyzer 0 % (0-5); Neutrophil # 4.83 X10^3/uL (2.7-7.7); Platelet Count 153 K/mm3 (150-450); RBC Distribution Width CV 16.5 % (11.6-14.6); RBC Distribution Width SD 64.4 fl (35.1-43.9); Red Blood Count 2.63 M/mm3 (4.2-5.4); White Blood Count 7.9 K/mm3 (4.4-11.0)
[2020-04-04 19:58] LABS: Anion Gap 8 (5-15); BUN 36 mg/dL (7-18); BUN/Creat Ratio 12.8 RATIO (10-20); Calcium,Total 7.9 mg/dL (8.5-10.1); Chloride 103 mmol/L (98-107); Creatinine, Serum 2.81 mg/dL (0.55-1.02); EST Glomerular Filtration Rate 18 mL/min (>60); Est Glom Filt Rate - Afr Amer 21 mL/min (>60); Glucose 120 mg/dL (74-106); Potassium 3.7 mmol/L (3.5-5.1); Sodium Level 138 mmol/L (136-145)
[2020-04-04 20:33] LABS: BNP,B-Type NATRIURETIC PEPTIDE 109.9 pg/mL (0-100)
--- NOTE | 2020-04-04 22:36 | ED.RN ---
OFFERED TO CALL PT FAMILY REGARDING ADMISSION, PT DENIED
[2020-04-04] MEDS: Furosemide 40 MG/4 ML Vial IV (23:00)
--- NOTE | 2020-04-04 23:12 | HP.PCM_ITS ---
History of Present Illness Date of Admission: 04/04/20 Chief Complaint: Shortness of breath The patient is a 74 year old F who has been more short of breath over the past 3 to 4 days. Patient states that she is just been chronically more short of breath overall and weight has been increasing. Patient states that over the past several months, patient is put on over 40 pounds. Patient presented to the emergency room for evaluation. In the emergency room patient underwent a work- up with an elevated BNP. Patient did receive IV furosemide in the emergency room. Patient is not on any home diuretics. [] Past Medical History Past Medical History (Chronic Problems): Chronic Problems (Last Updated 08/20/19 @ 16:[address] Sylvester Hendrix DO) Hx of cholecystectomy (Chronic) Hx of appendectomy (Chronic) Hx of tubal ligation (Chronic) Hypertension (Chronic) Sjogrens syndrome (Chronic) Chronic kidney disease (CKD), stage III (moderate) (Chronic) History of fibromyalgia (Chronic) Pulmonary embolism, bilateral (Chronic) Right ventricular dysfunction (Chronic) Pulmonary HTN (Chronic) Morbid obesity with BMI of 45.0-49.9, adult (Chronic) Hypothyroidism (Chronic) Hyperuricemia (Chronic) HLD (hyperlipidemia) (Chronic) Anemia (Chronic) Medical History: Medical History (Last Reviewed 04/04/20 @ 23:[address] Mathew Cunningham, DO) Hypertension (Chronic) I10 Sjogrens syndrome (Chronic) M35.00 Chronic kidney disease (CKD), stage III (moderate) (Chronic) History of fibromyalgia (Chronic) Z87.39 Pulmonary embolism, bilateral (Chronic) I26.99 Right ventricular dysfunction (Chronic) I51.9 Pulmonary HTN (Chronic) I27.2 Hyponatremia (Resolved) E87.1 Nausea & vomiting (Resolved) R11.2 Morbid obesity with BMI of 45.0-49.9, adult (Chronic) E66.01, Z68.42 Hypothyroidism (Chronic) E03.9 Hyperuricemia (Chronic) E79.0 HLD (hyperlipidemia) (Chronic) E78.5 Anemia (Chronic) D64.9 Diarrhea with dehydration (Acute) R19.7 Allergies adhesive Allergy (Verified 04/04/20 18:06) Rash Penicillins [PCN] Allergy (Verified 04/04/20 18:06) Swelling Home Medications: Ambulatory Orders Medication Instructions Recorded Gabapentin [Neurontin] 600 mg PO BID PRN PRN 04/09/15 Simvastatin 10 mg PO QHS 04/09/15 Albuterol IH (ProAir) [Proair Hfa] 1 puff INHALATION Q6H PRN PRN 11/09/15 Allopurinol [Zyloprim] 100 mg PO DAILY 11/09/15 Apixaban [Eliquis] 5 mg PO BID #60 tab 11/10/15 Omeprazole [Prilosec] 20 mg PO DAILY PRN PRN 04/07/17 Cyanocobalamin (Vitamin B-12) 1,000 mcg SUBCUT QMONTH 06/29/17 [B-12 Compliance] Iron Polysaccharide Complex 150 mg PO DAILY 08/12/19 [Ferrex 150] Levothyroxine [Synthroid] 125 mcg PO DAILY 08/12/19 Acetaminophen [Tylenol Tablet] 650 mg PO Q6H PRN PRN tab 08/21/19 Surgical History: Surgical History (Last Reviewed 04/04/20 @ 23:[address] Mathew Cunningham DO) Hx of cholecystectomy (Chronic) Z90.49 Hx of appendectomy (Chronic) Z90.49 History of carpal tunnel release of both wrists (Inactive) Z98.890 Hx of tubal ligation (Chronic) Z98.51 Hx of arthroscopic knee surgery (Inactive) Z98.890 bilateral Surgical History: appendectomy, cholecystectomy, - - Extensor tendon surgery on both hands, bilateral carpal tunnel, tubal ligation Psychiatric History: No pertinent psych hx ASSOCIATE ARTISTIC DIRECTOR History: No pertinent ASSOCIATE ARTISTIC DIRECTOR history Lives: Spouse/ Significant Other Smoking Status: Never smoker - *Family History Maternal Family History: Family History (Last Reviewed 04/04/20 @ 23:[address] Mathew Cunningham DO) Brother Bone cancer Sister Lung cancer Sister Cervical cancer Hypertension Mother Uterine cancer Father Hypertension Myocardial infarction Brother Myocardial infarction History Items: Cancer Paternal Family History: Family History (Last Reviewed 04/04/20 @ 23:[address] Mathew Cunningham DO) Brother Bone cancer Sister Lung cancer Sister Cervical cancer Hypertension Mother Uterine cancer Father Hypertension Myocardial infarction Brother Myocardial infarction History Items: Heart Disease Review of Systems Constitutional: Denies: Anorexia, Fever Eyes: Denies: Blurred vision, Double vision HEENT: Denies: Head Aches, Sinus Congestion, Sinus Drainage Cardiovascular: Reports: Edema. Denies: Chest Pain Respiratory: Reports: Shortness of Breath. Denies: Cough, Sputum production Gastrointestinal: Reports: Constipation. Denies: Abdominal Pain Genitourinary: Denies: Dysuria Skin: Denies: Rash, Wounds Hematologic/ Lymphatic: Denies: Easy Bruising, Easy Bleeding, Hx of blood clot Comment: All review of systems were negative except as mentioned above in the history of present illness and the other review of systems. VTE Information - Inpt Only VTE Present on Admission: No VTE Mechan Device Prophylaxis: None VTE Pharm Prophylaxis ordered?: No Reason prophylaxis not ordered:: Treatment Not Indicated - Physical Exam Vitals/I&O's: Vital Signs Temp Pulse Resp BP Pulse Ox 36.6 C 68 18 115/63 98 04/04/20 22:35 04/04/20 22:35 04/04/20 22:35 04/04/20 22:35 04/04/20 22:35 Oxygen Flow Rate (L/min) 2 Oxygen Delivery Method Nasal Cannula Weight: 133 kg Body Mass Index (BMI) 53.6 General: Alert, Cooperative, No apparent distress HEENT: Atraumatic, Normocephalic Neck: No Nodes, - - Positive JVD Lungs: Diminished, - - Coarse breath sounds bilaterally Cardiovascular: Regular rate, Regular Rhythm, Normal S1, Normal S2, No murmurs Abdomen: Bowel Sounds Present, Soft, Non Tender, Distended Extremities: No Calf Tenderness, Edema - Taut in the lower extremities Skin: No rashes, No breakdown Musculoskeletal: No Tenderness to Palpation of Joints or Extremities, No Muscle Wasting Neurological: - - Moves all extremities spontaneously. No focal deficits ismael reciated. Psych/Mental Status: Normal Affect, Appropriate Laboratory Results 04/04/20 18:32: WBC 7.9, RBC 2.63 L, Hgb 9.1 L, Hct 28.2 L, MCV 107.2 H, MCH 34.6 H, MCHC 32.3, RDW Std Deviation 64.4 H, RDW Coeff of Yuri 16.5 H, Plt Count 153, MPV 11.1, Immature Gran % (Auto) 0.600, Neut % (Auto) 61.0, Lymph % (Auto) 16.2 L, Converse % (Auto) 7.8, Eos % (Auto) 13.9 H, Baso % (Auto) 0.5, Absolute Neuts (auto) 4.8, Absolute Lymphs (auto) 1.28, Nucleated RBC % 0 04/04/20 18:32: Sodium 138, Potassium 3.7, Chloride 103, Carbon Dioxide 27.0, Anion Gap 8, BUN 36 H, Creatinine 2.81 H, Estim Creat Clear Calc 14.10, Est GFR (MDRD) Af Amer 21 L, Est GFR (MDRD) Non-Af 18 L, BUN/Creatinine Ratio 12.8, Glucose 120 H, Calcium 7.9 L, Troponin I < 0.015 04/04/20 18:32: B-Natriuretic Peptide 109.9 H EKG reviewed and showed normal sinus rhythm with no acute changes. Chest x-ray reviewed and was of poor quality due to poor inspiratory effort and limited by body habitus. Questionable pulmonary vascular congestion with small pleural effusions perhaps Assessment/Plan All Active Problems (Last Updated 08/20/19 @ 16:[address] Sylvester Hendrix, DO) Afib (Acute) Afib (Acute) C. difficile colitis (Acute) GRETEL (acute kidney injury) (Acute) Hyponatremia (Resolved) Nausea & vomiting (Resolved) Diarrhea with dehydration (Acute) Acute bronchitis (Resolved) 1. Acute heart failure with preserved ejection fraction: Patient had an EF of 50 to 55% from echocardiogram from November 09, 2015. Complicated by the patient's known history of severe pulmonary hypertension. Plan is to continue with IV diuretic therapy with furosemide. We will plan for 40 mg twice daily. Will need to have cautioned trigger with the patient's known history of chronic kidney disease stage IV. Since has been several years since patient's last echocardiogram, will recheck another echocardiogram to see if there is been any change. Prior to discharge, will check an ambulatory pulse ox to see if the patient would require oxygen upon discharge. 2. Chronic kidney disease stage IV: Appears to be at her baseline currently but is unclear how that will respond with diuresis. 3. History of pulmonary embolism: Patient is already anticoagulated on apixaban. 4. History of gout, hypothyroidism, Sjogren's syndrome: Complicate care but overall stable at this time. Continue with her home medications. 5. VTE prophylaxis: Not indicated as patient is already anticoagulated on apixaban. 6. Advanced care planning: Discussed with the patient. Patient wishes to be full CODE STATUS at this time. Inpatient E&M: 75826 Init Hosp L3
--- NOTE | 2020-04-04 23:27 | ECHOCS_ITS ---
Reason For Study: CHF Procedure This was a 2D Doppler, Color Flow transthoracic echocardiogram. The study was technically difficult. Contrast injection was performed. Exam performed in department. Left Ventricle Based upon the 2D echocardiographic and contrast enhanced images obtained there appears to be grossly normal left ventricular size, wall motion, and systolic function. The estimated ejection fraction is 55 %. Right Ventricle Based upon the 2D echocardiographic and contrast enhanced images obtained the right ventricle appears to be moderately dilated with moderate global right ventricular systolic dysfunction. Atria The left atrium is mildly enlarged. Normal right atrium. No doppler evidence for ASD. Mitral Valve There is mild mitral annular calcification. Extension of the mitral annular calcification onto the base of the posterior mitral valve leaflet. Trivial mitral valve insufficiency. Tricuspid Valve Normal tricuspid valve. Mild tricuspid valve insufficiency. Right ventricular systolic pressure estimated to be 30 mmHg. Aortic Valve Trisinus/trileaflet aortic valve. Normal aortic valve. Pulmonic Valve The pulmonic valve is not well visualized. Great Vessels Normal sized aortic root. Pericardium/Pleural No pericardial effusion. Medication Diluted definity 3.0ml given slow IV push to enhance endocardial definition. MMode/2D Measurements & Calculations LVIDd: 5.5 cm IVSd: 0.73 cm Ao root diam: 2.8 cm LVIDs: 3.4 cm LVPWd: 0.89 cm FS: 37.4 % LAV(MOD-bp): 66.2 ml LA A4 area: 21.8 cm2 LA dimension(2D): 4.5 cm LAV(MOD-bp) Indexed: 29.4 ml/m2 LAV(MOD-sp2): 64.1 ml LAV(MOD-sp4): 60.4 ml Time Measurements MV dec time: 0.27 sec Doppler Measurements & Calculations MV E max audie: 78.1 cm/sec Lat Peak E' Audie: 9.6 cm/sec Med Peak E' Audie: 7.0 cm/sec MV A max audie: 74.7 cm/sec E/E' lat: 8.1 E/E' med: 11.2 MV E/A: 1.0 Ao V2 max: 133.2 cm/sec PA V2 max: 126.7 cm/sec TR max audie: 236.4 cm/sec Ao max P.1 mmHg TR max P.3 mmHg Interpretation Summary The study was technically difficult. Contrast injection was performed. Based upon the 2D echocardiographic and contrast enhanced images obtained there appears to be grossly normal left ventricular size, wall motion, and systolic function. The estimated ejection fraction is 55 %. Based upon the 2D echocardiographic and contrast enhanced images obtained the right ventricle appears to be moderately dilated with moderate global right ventricular systolic dysfunction. The left atrium is mildly enlarged. There is mild mitral annular calcification. Extension of the mitral annular calcification onto the base of the posterior mitral valve leaflet. Trivial mitral valve insufficiency. Mild tricuspid valve insufficiency. Right ventricular systolic pressure estimated to be 30 mmHg. Transmitral diastolic flow velocities suggest diastolic dysfunction (pseudonormal pattern). Ordering Physician: Mathew Cunnnigham Referring Physician: Zev Senior Performed By: Yeny Mcdaniel, LOVE, RVT
[2020-04-05] VITALS (10 sets, daily range): BP systolic 101–111; BP diastolic 57–74; PULSE 61–79; RESP 16–18; TEMP 36.4–36.8; O2SAT 94–97
[2020-04-05] MEDS: Atorvastatin Calcium 10 MG Tablet 5 MG PO ×2 (00:36→21:26)
[2020-04-05] MEDS: Gabapentin 300 MG Capsule 600 MG PO ×2 (00:36→21:25)
[2020-04-05] MEDS: Levothyroxine 125 MCG Tablet PO (05:45)
[2020-04-05 05:49] LABS: Absolute Lymphocyte Count 1.16 X10^3/uL (0.83-4.51); Absolute Neutrophil Count 3.2 X10^3/uL (2.0-7.7); Basophil# 0.04 X10^3/uL; Basophil% 0.7 % (0-1); Eosinophil# 1.01 X10^3/uL; Eosinophils% 17.1 % (0-5); Hemoglobin 8.4 g/dL (12.0-15.0); Lymphocyte # 1.16 X10^3/ul (4.0); Lymphocyte % 19.6 % (19-41); Mean Corp Hgb Conc 32.3 g/dL (32-36); Mean Corpuscular Hgb 33.9 pg (27.0-32.0); Mean Corpuscular Volume 104.8 fL (81-99); Mean Platelet Vol. 9.8 fl (6.2-12.0); Monocyte# 0.46 X10^3/uL; Monocyte% 7.8 % (0-10); NRBC Flagged by Analyzer 0 % (0-5); Neutrophil # 3.22 X10^3/uL (2.7-7.7); Neutrophil % 54.5 % (47-70); Platelet Count 106 K/mm3 (150-450); RBC Distribution Width CV 16.2 % (11.6-14.6); RBC Distribution Width SD 60.9 fl (35.1-43.9); Red Blood Count 2.48 M/mm3 (4.2-5.4); White Blood Count 5.9 K/mm3 (4.4-11.0)
[2020-04-05 06:07] LABS: Anion Gap 5 (5-15); BUN 38 mg/dL (7-18); BUN/Creat Ratio 13.5 RATIO (10-20); Calcium,Total 7.7 mg/dL (8.5-10.1); Chloride 103 mmol/L (98-107); Creatinine, Serum 2.82 mg/dL (0.55-1.02); EST Glomerular Filtration Rate 17 mL/min (>60); Est Glom Filt Rate - Afr Amer 21 mL/min (>60); Estimated Creatinine Clearance 14.05 ml/min; Glucose 92 mg/dL (74-106); Potassium 3.6 mmol/L (3.5-5.1); Sodium Level 136 mmol/L (136-145)
[2020-04-05] MEDS: CLARIFY ORDER 1 EACH NOTE (06:31)
[2020-04-05] MEDS: Iron Polysaccharide Complex 150 MG CAPSULE PO (08:37)
[2020-04-05] MEDS: Allopurinol 100 MG Tablet PO (08:37)
[2020-04-05] MEDS: Furosemide 40 MG/4 ML Vial IV ×3 (08:37→22:38)
--- NOTE | 2020-04-05 11:12 | CASEMGMT ---
Assessment- SW completed assessment with patient along with verified her address, phone numbers, and contacts Living situation- Patient lives in a mobile home with 4 entry steps with her . PCP: Dr Senior at [facility] Specialists: She sees Dr Yan-Nephrology. She also sees some other specialists at [facility], but she cannot remember their names. Pharmacy: [facility] DME: cane, cowan walker, and shower chair ADL's/IADL's: Patient manages her own medications. Her sponge bathes her, he cleans, and does the laundry. They both do the cooking. Past SNF/rehab: None Past HH: Currently has [facility] fdc, PT, and OT. PT/OT has not started yet, the nurse came out for the first time yesterday. LW: No. Her daughter is working on this POA: No. Her daughter is working on this Plan: Patient plans on returning home with resumption of her home health. PAWAN and SANDRA MEYER will follow for d/c planning. Patient asked SW to put her oldest daughter, Marely in as the next contact after her . PAWAN will do this in the computer. Estella NIÑO RECEIVABLES SPECIALIST
--- NOTE | 2020-04-05 12:51 | PCM.PROGNOTE ---
<Beckie Cornell - Last Filed: 04/05/20 13:32> Subjective: Patient seen and examined. Reports improvement in breathing. Continues to have lower extremity swelling which extends to mid abdomen. She denies history of CHF. Patient follows with nephrology for chronic kidney disease stage IV and states dialysis has been discussed with her however she does not want to do dialysis unless it is [facility]. - Physical Exam Vitals/I&O's: Vital Signs Temp Pulse Resp BP Pulse Ox 98.2 F 79 18 106/64 97 04/05/20 09:20 04/05/20 09:20 04/05/20 09:20 04/05/20 09:20 04/05/20 09:20 Oxygen Flow Rate (L/min) 2 Oxygen Delivery Method Nasal Cannula Weight: 288 lb 2.307 oz Body Mass Index (BMI) 52.7 Intake and Output for Last 24 Hours 04/03/20 04/04/20 04/05/20 23:59 23:59 23:59 Intake Total 120 / 120 240 / 240 Output Total 500 / 500 Balance 120 / 120 -260 / -260 General: Alert, Oriented x3, Cooperative HEENT: Atraumatic, PERRLA, EOMI, Normocephalic Neck: Supple, No JVD, Negative Carotid Bruits Lungs: Diminished, - - Crackles bilateral bases Cardiovascular: Regular rate, Regular Rhythm, Normal S1, Normal S2, No murmurs Abdomen: Bowel Sounds Present, Soft, Non Tender, Non-Distended, Obese Extremities: No clubbing, No cyanosis, Edema - +3 bilateral lower extremity Skin: No rashes, No breakdown Musculoskeletal: No Tenderness to Palpation of Joints or Extremities Neurological: Cranial nerves II-XII grossly intact, Neuro grossly intact Psych/Mental Status: Normal Affect, Appropriate Laboratory Results 04/04/20 18:32: WBC 7.9, RBC 2.63 L, Hgb 9.1 L, Hct 28.2 L, MCV 107.2 H, MCH 34.6 H, MCHC 32.3, RDW Std Deviation 64.4 H, RDW Coeff of Yuri 16.5 H, Plt Count 153, MPV 11.1, Immature Gran % (Auto) 0.600, Neut % (Auto) 61.0, Lymph % (Auto) 16.2 L, Grainger % (Auto) 7.8, Eos % (Auto) 13.9 H, Baso % (Auto) 0.5, Absolute Neuts (auto) 4.8, Absolute Lymphs (auto) 1.28, Nucleated RBC % 0 04/04/20 18:32: Sodium 138, Potassium 3.7, Chloride 103, Carbon Dioxide 27.0, Anion Gap 8, BUN 36 H, Creatinine 2.81 H, Estim Creat Clear Calc 14.10, Est GFR (MDRD) Af Amer 21 L, Est GFR (MDRD) Non-Af 18 L, BUN/Creatinine Ratio 12.8, Glucose 120 H, Calcium 7.9 L, Troponin I < 0.015 04/04/20 18:32: B-Natriuretic Peptide 109.9 H 04/05/20 00:20: Troponin I < 0.015 04/05/20 03:16: Troponin I < 0.015 04/05/20 05:43: WBC 5.9, RBC 2.48 L, Hgb 8.4 L, Hct 26.0 L, MCV 104.8 H, MCH 33.9 H, MCHC 32.3, RDW Std Deviation 60.9 H, RDW Coeff of Yuri 16.2 H, Plt Count 106 L, MPV 9.8, Immature Gran % (Auto) 0.300, Neut % (Auto) 54.5, Lymph % (Auto) 19.6, Grainger % (Auto) 7.8, Eos % (Auto) 17.1 H, Baso % (Auto) 0.7, Absolute Neuts (auto) 3.2, Absolute Lymphs (auto) 1.16, Nucleated RBC % 0 04/05/20 05:43: Sodium 136, Potassium 3.6, Chloride 103, Carbon Dioxide 28.0, Anion Gap 5, BUN 38 H, Creatinine 2.82 H, Estim Creat Clear Calc 14.05, Est GFR (MDRD) Af Amer 21 L, Est GFR (MDRD) Non-Af 17 L, BUN/Creatinine Ratio 13.5, Glucose 92, Calcium 7.7 L, Troponin I < 0.015 Current Medications Acetaminophen (Tylenol) 650 mg PO Q6H PRN PRN PRN Reason: Pain Score 1-10/Temp > 100.7 F Albuterol Sulfate (Ventolin Aerosols) 2.5 mg INHALATION Q4H PRN PRN PRN Reason: SHORTNESS OF BREATH Allopurinol (Zyloprim) 100 mg PO DAILY [facility] Last Admin: 04/05/20 08:37 Dose: 100 mg Documented by: Apixaban (Eliquis) 5 mg PO BID [facility] Last Admin: 04/05/20 08:58 Dose: Not Given Documented by: Atorvastatin Calcium (Lipitor) 5 mg PO QHS [facility] Last Admin: 04/05/20 00:36 Dose: 5 mg Documented by: Dextrose (D50w Syringe) 0 gm IV X1 PRN; Protocol PRN Reason: Hypoglycemia Furosemide (Lasix) 40 mg IV Q8 [facility] Gabapentin (Neurontin) 600 mg PO BID PRN PRN PRN Reason: Neuropathy Last Admin: 04/05/20 00:36 Dose: 300 mg Documented by: Glucagon () 1 mg IM .X1 PRN PRN Reason: Hypoglycemia Levothyroxine Sodium (Synthroid) 125 mcg PO DAILY@0600 [facility] Last Admin: 04/05/20 05:45 Dose: 125 mcg Documented by: Nitroglycerin (Nitrostat) 0.4 mg SUBLINGUAL Q5M PRN PRN Reason: CARDIAC/CHEST PAIN Nutritional Formula (Lactose Free) (Ensure Enlive) 120 ml PO 4X/DAY [facility] Last Admin: 04/05/20 08:36 Dose: 120 ml Documented by: Pantoprazole Sodium (Protonix) 20 mg PO DAILY PRN PRN PRN Reason: HEARTBURN Polysaccharide Iron Complex (Ferrex 150) 150 mg PO DAILY [facility] Last Admin: 04/05/20 08:37 Dose: 150 mg Documented by: Sodium Chloride () 10 - 40 ml IV UD PRN PRN Reason: SALINE FLUSH Medical Necessity - Tobacco Use Smoking Status: Never smoker Assessment/Plan 1. Acute heart failure with preserved ejection fraction vs fluid overload due to chronic kidney disease stage IV-patient reports she has had lower extremity edema for a long time, worsened recently. Denies history of CHF. BNP not significantly elevated. Chest x-ray without CHF. Echocardiogram October 2015 demonstrated an EF of 50 to 55%. Patient had severe pulmonary hypertension at that time however she was also diagnosed with PE at time of echo. Continue IV Lasix. Strict I&O. Daily weight. Benjamin wraps bilateral lower extremities. Repeat echocardiogram pending. 2. Chronic kidney disease stage IV-appears at baseline. Per patient, dialysis has been discussed with patient. She follows with JACKI Slaughter. Will consult nephrology. Trend BMP. 3. History of pulmonary embolism-previously on Eliquis which has since been discontinued. 4. History of gout-continue allopurinol regimen. 5. Hypothyroidism-continue Synthroid regimen. 6. Sjogren's syndrome 7. Hyperlipidemia-continue statin. 8. Hypertension-stable, continue metoprolol regimen. 9. Anemia of chronic disease/iron deficiency anemia-stable, trend CBC. Continue iron supplementation. DVT prophylaxis-Heparin subcu This patient was seen by MARCO Gomes under the supervision of Dr. Christie. <Tien Christie E - Last Filed: 04/05/20 15:14> - Physical Exam Vitals/I&O's: Vital Signs Temp Pulse Resp BP Pulse Ox 98.2 F 79 18 106/64 97 04/05/20 09:20 04/05/20 09:20 04/05/20 09:20 04/05/20 09:20 04/05/20 09:20 Oxygen Flow Rate (L/min) 2 Oxygen Delivery Method Nasal Cannula Weight: 288 lb 2.307 oz Body Mass Index (BMI) 52.7 Intake and Output for Last 24 Hours 04/03/20 04/04/20 04/05/20 23:59 23:59 23:59 Intake Total 120 / 120 240 / 240 Output Total 500 / 500 Balance 120 / 120 -260 / -260 Laboratory Results 04/04/20 18:32: WBC 7.9, RBC 2.63 L, Hgb 9.1 L, Hct 28.2 L, MCV 107.2 H, MCH 34.6 H, MCHC 32.3, RDW Std Deviation 64.4 H, RDW Coeff of Yuri 16.5 H, Plt Count 153, MPV 11.1, Immature Gran % (Auto) 0.600, Neut % (Auto) 61.0, Lymph % (Auto) 16.2 L, Grainger % (Auto) 7.8, Eos % (Auto) 13.9 H, Baso % (Auto) 0.5, Absolute Neuts (auto) 4.8, Absolute Lymphs (auto) 1.28, Nucleated RBC % 0 04/04/20 18:32: Sodium 138, Potassium 3.7, Chloride 103, Carbon Dioxide 27.0, Anion Gap 8, BUN 36 H, Creatinine 2.81 H, Estim Creat Clear Calc 14.10, Est GFR (MDRD) Af Amer 21 L, Est GFR (MDRD) Non-Af 18 L, BUN/Creatinine Ratio 12.8, Glucose 120 H, Calcium 7.9 L, Troponin I < 0.015 04/04/20 18:32: B-Natriuretic Peptide 109.9 H 04/05/20 00:20: Troponin I < 0.015 04/05/20 03:16: Troponin I < 0.015 04/05/20 05:43: WBC 5.9, RBC 2.48 L, Hgb 8.4 L, Hct 26.0 L, MCV 104.8 H, MCH 33.9 H, MCHC 32.3, RDW Std Deviation 60.9 H, RDW Coeff of Yuri 16.2 H, Plt Count 106 L, MPV 9.8, Immature Gran % (Auto) 0.300, Neut % (Auto) 54.5, Lymph % (Auto) 19.6, Grainger % (Auto) 7.8, Eos % (Auto) 17.1 H, Baso % (Auto) 0.7, Absolute Neuts (auto) 3.2, Absolute Lymphs (auto) 1.16, Nucleated RBC % 0 04/05/20 05:43: Sodium 136, Potassium 3.6, Chloride 103, Carbon Dioxide 28.0, Anion Gap 5, BUN 38 H, Creatinine 2.82 H, Estim Creat Clear Calc 14.05, Est GFR (MDRD) Af Amer 21 L, Est GFR (MDRD) Non-Af 17 L, BUN/Creatinine Ratio 13.5, Glucose 92, Calcium 7.7 L, Troponin I < 0.015 Current Medications Acetaminophen (Tylenol) 650 mg PO Q6H PRN PRN PRN Reason: Pain Score 1-10/Temp > 100.7 F Albuterol Sulfate (Ventolin Aerosols) 2.5 mg INHALATION Q4H PRN PRN PRN Reason: SHORTNESS OF BREATH Allopurinol (Zyloprim) 100 mg PO DAILY [facility] Last Admin: 04/05/20 08:37 Dose: 100 mg Documented by: Atorvastatin Calcium (Lipitor) 5 mg PO QHS [facility] Last Admin: 04/05/20 00:36 Dose: 5 mg Documented by: Dextrose (D50w Syringe) 0 gm IV X1 PRN; Protocol PRN Reason: Hypoglycemia Furosemide (Lasix) 40 mg IV Q8 [facility] Last Admin: 04/05/20 13:41 Dose: 40 mg Documented by: Gabapentin (Neurontin) 600 mg PO BID PRN PRN PRN Reason: Neuropathy Last Admin: 04/05/20 00:36 Dose: 300 mg Documented by: Glucagon () 1 mg IM .X1 PRN PRN Reason: Hypoglycemia Heparin Sodium (Porcine) (Heparin Na) 5,000 unit SC Q12 [facility] Levothyroxine Sodium (Synthroid) 125 mcg PO DAILY@0600 [facility] Last Admin: 04/05/20 05:45 Dose: 125 mcg Documented by: Metoprolol Succinate (Toprol Xl (Beta Britney)) 50 mg PO DAILY [facility] Nitroglycerin (Nitrostat) 0.4 mg SUBLINGUAL Q5M PRN PRN Reason: CARDIAC/CHEST PAIN Nutritional Formula (Lactose Free) (Ensure Enlive) 120 ml PO 4X/DAY [facility] Last Admin: 04/05/20 13:24 Dose: Not Given Documented by: Pantoprazole Sodium (Protonix) 20 mg PO DAILY PRN PRN PRN Reason: HEARTBURN Polysaccharide Iron Complex (Ferrex 150) 150 mg PO DAILY [facility] Last Admin: 04/05/20 08:37 Dose: 150 mg Documented by: Sodium Chloride () 10 - 40 ml IV UD PRN PRN Reason: SALINE FLUSH Assessment/Plan Hospitalist note: I am seeing this patient in conjunction with Beckie Cornell. I independently seen and examined the patient. Progress note above, laboratory data and imaging studies reviewed and I concur with above treatment plan. Today, patient mentioned that her breathing is getting better. Denied cough or sputum production. Denied chest pain. She still having significant bilateral leg edema. She never been on oxygen at home before. She does have stage IV chronic kidney disease And she was given the option to go for dialysis but she declined. She is afebrile, blood pressure and heart rate are stable, pulse ox is 97% on 2 L. - Physical Exam General: Alert, Oriented x3, Cooperative, minimal shortness of breath. HEENT: Atraumatic, PERRLA, EOMI. Neck: Supple, No JVD, Negative Carotid Bruits, Trachea Midline, Thyroid Normal. Lungs: Diminished breath sounds at the bases, bilateral faint basilar crackles, No rhonchi, No wheeze. Cardiovascular: Regular rate, Regular Rhythm, Normal S1, Normal S2, PMI Normal. Abdomen: Bowel Sounds Present, Soft, Non Tender, Non-Distended, No Hepato-splenomegaly. Extremities: No clubbing, No cyanosis, +++ edema Skin: No rashes, No breakdown Neurological: Cranial nerves are intact, neuro grossly intact Vital Signs are stable. Assessment and plan: #1 acute diastolic CHF with preserved ejection fraction: In context of stage IV chronic kidney disease. She is on IV Lasix and metoprolol. She is not on BENJAMIN inhibitor because of chronic kidney disease. 2D echocardiogram revealed ejection fraction 55%, moderately dilated right ventricle, RVSP of 30. EKG revealed no acute ischemic changes. Troponin is negative x3. Plan to continue IV diuresis, repeat BMP tomorrow morning. #2 hypoxia: Secondary to #1. She is on 2 L. Plan to continue IV diuresis, albuterol PRN, oxygen to keep O2 saturation more than 92%. #3 other chronic medical problems: Stable, continue current medications as above. This note was generated with [employer] dictation software. It may contain incorrect words, spelling, and punctuation that were not noted in checking the note before signing. Inpatient E&M: 02807 Subs Hosp L2
[2020-04-05] MEDS: Heparin Injection (Vial) 5,000 UNIT/ML VIAL 5000 UNIT SC (21:27)
[2020-04-05] MEDS: 0.9% Saline Lock 10 ML Syringe IV ×2 (21:43→22:40)
[2020-04-06] VITALS (19 sets, daily range): BP systolic 88–123; BP diastolic 49–82; PULSE 64–95; RESP 16–19; TEMP 36.6–36.9; O2SAT 92–95
[2020-04-06] MEDS: 0.9% Saline Lock 10 ML Syringe IV ×4 (01:30→16:10)
[2020-04-06] MEDS: Levothyroxine 125 MCG Tablet PO (05:50)
[2020-04-06] MEDS: Furosemide 40 MG/4 ML Vial IV (06:04)
[2020-04-06 06:34] LABS: Hematocrit 23.5 % (37-47); Hemoglobin 7.6 g/dL (12.0-15.0); Mean Corp Hgb Conc 32.3 g/dL (32-36); Mean Corpuscular Hgb 34.1 pg (27.0-32.0); Mean Corpuscular Volume 105.4 fL (81-99); Mean Platelet Vol. 10.6 fl (6.2-12.0); Platelet Count 107 K/mm3 (150-450); RBC Distribution Width SD 61.5 fl (35.1-43.9); Red Blood Count 2.23 M/mm3 (4.2-5.4); White Blood Count 6.3 K/mm3 (4.4-11.0)
[2020-04-06 06:58] LABS: Anion Gap 5 (5-15); BUN 36 mg/dL (7-18); BUN/Creat Ratio 12.7 RATIO (10-20); Calcium,Total 7.6 mg/dL (8.5-10.1); Chloride 104 mmol/L (98-107); Creatinine, Serum 2.83 mg/dL (0.55-1.02); EST Glomerular Filtration Rate 17 mL/min (>60); Est Glom Filt Rate - Afr Amer 21 mL/min (>60); Glucose 93 mg/dL (74-106); Potassium 3.6 mmol/L (3.5-5.1); Sodium Level 138 mmol/L (136-145)
[2020-04-06] MEDS: Acetaminophen 325 MG Tablet 650 MG PO (10:24)
[2020-04-06] MEDS: Iron Polysaccharide Complex 150 MG CAPSULE PO (10:24)
[2020-04-06] MEDS: Allopurinol 100 MG Tablet PO (10:24)
[2020-04-06] MEDS: Heparin Injection (Vial) 5,000 UNIT/ML VIAL 5000 UNIT SC ×2 (10:25→21:09)
[2020-04-06] MEDS: Albuterol 2.5 MG/3 ML VIAL.NEB. INHALATION (10:34)
--- NOTE | 2020-04-06 11:32 | PCM.CONS.R ---
Problem List (1) CKD (chronic kidney disease) stage 4, GFR 15-29 ml/min Status: Chronic Consultation - Renal 04/06/20 PCP/ Referring MD: Requesting physician: [] Primary care physician: Dr. Josesito Senior MD Reason for Consultation:: CKD CHF - History of Present Illness History of Present Illness: The patient is a 74 year old F admitted to the hospital with complaints of shortness of breath for the last few days. Somewhat complicated medical history. Reviewed records from [facility]. She has known history of CKD stage IV with baseline creatinine around 2.6, monoclonal gammopathy of undetermined significance, congestive heart failure with elevated right-sided pressures, Lora cirrhosis. Apparently she has been seeing hematology, nephrology, primary care physician at [facility]. Has gained progressively worsening fluid overload over the last few weeks. She was on torsemide at home but apparently this did not help much. Currently she has swelling extending up to the lower chest. Complaints of shortness of breath. Weight is around 235 pounds. Currently around 282 -290 pounds. - Allergies Allergies: Allergies adhesive Allergy (Verified 04/04/20 18:06) Rash Penicillins [PCN] Allergy (Verified 04/04/20 18:06) Swelling - Current Medications Current Medications: Current Medications Acetaminophen (Tylenol) 650 mg PO Q6H PRN PRN PRN Reason: Pain Score 1-10/Temp > 100.7 F Last Admin: 04/06/20 10:24 Dose: 650 mg Documented by: Albuterol Sulfate (Ventolin Aerosols) 2.5 mg INHALATION Q4H PRN PRN PRN Reason: SHORTNESS OF BREATH Last Admin: 04/06/20 10:34 Dose: 2.5 mg Documented by: Allopurinol (Zyloprim) 100 mg PO DAILY [facility] Last Admin: 04/06/20 10:24 Dose: 100 mg Documented by: Atorvastatin Calcium (Lipitor) 5 mg PO QHS [facility] Last Admin: 04/05/20 21:26 Dose: 5 mg Documented by: Dextrose (D50w Syringe) 0 gm IV X1 PRN; Protocol PRN Reason: Hypoglycemia Gabapentin (Neurontin) 600 mg PO BID PRN PRN PRN Reason: Neuropathy Last Admin: 04/05/20 21:25 Dose: 300 mg Documented by: Glucagon () 1 mg IM .X1 PRN PRN Reason: Hypoglycemia Heparin Sodium (Porcine) (Heparin Na) 5,000 unit SC Q12 [facility] Last Admin: 04/06/20 10:25 Dose: 5,000 unit Documented by: Furosemide 500 mg/ N/A 50 mls @ 2 mls/hr CONT INF .Q25H [facility] Levothyroxine Sodium (Synthroid) 125 mcg PO DAILY@0600 [facility] Last Admin: 04/06/20 05:50 Dose: 125 mcg Documented by: Metolazone (Zaroxolyn) 5 mg PO DAILY [facility] Metoprolol Succinate (Toprol Xl (Beta Britney)) 50 mg PO DAILY [facility] Last Admin: 04/06/20 10:34 Dose: Not Given Documented by: Nitroglycerin (Nitrostat) 0.4 mg SUBLINGUAL Q5M PRN PRN Reason: CARDIAC/CHEST PAIN Nutritional Formula (Lactose Free) (Ensure Enlive) 120 ml PO 4X/DAY [facility] Last Admin: 04/06/20 10:21 Dose: Not Given Documented by: Pantoprazole Sodium (Protonix) 20 mg PO DAILY PRN PRN PRN Reason: HEARTBURN Polysaccharide Iron Complex (Ferrex 150) 150 mg PO DAILY [facility] Last Admin: 04/06/20 10:24 Dose: 150 mg Documented by: Sodium Chloride () 10 - 40 ml IV UD PRN PRN Reason: SALINE FLUSH Last Admin: 04/06/20 06:05 Dose: 10 ml Documented by: - Past Medical History Past Medical History (Chronic Problems): Chronic Problems (Last Updated 04/05/20 @ 15:[address] Tien Christie MD) CKD (chronic kidney disease) stage 4, GFR 15-29 ml/min (Chronic) Afib (Chronic) Chronic anemia (Chronic) Hypertension (Chronic) Sjogrens syndrome (Chronic) Chronic kidney disease (CKD), stage III (moderate) (Chronic) Pulmonary embolism, bilateral (Chronic) Right ventricular dysfunction (Chronic) Pulmonary HTN (Chronic) Morbid obesity with BMI of 45.0-49.9, adult (Chronic) Hypothyroidism (Chronic) Hyperuricemia (Chronic) HLD (hyperlipidemia) (Chronic) - Past Surgical History Surgical History: appendectomy, cholecystectomy, - - Extensor tendon surgery on both hands, bilateral carpal tunnel, tubal ligation - Social History Smoking Status: Never smoker - Family History Maternal Family History: Family History (Last Reviewed 04/04/20 @ 23:[address] Mathew Cunningham DO) Brother Bone cancer Sister Lung cancer Sister Cervical cancer Hypertension Mother Uterine cancer Father Hypertension Myocardial infarction Brother Myocardial infarction History Items: Cancer Paternal Family History: Family History (Last Reviewed 04/04/20 @ 23:[address] Mathew Cunningham DO) Brother Bone cancer Sister Lung cancer Sister Cervical cancer Hypertension Mother Uterine cancer Father Hypertension Myocardial infarction Brother Myocardial infarction History Items: Heart Disease Review of Systems Cardiovascular: Reports: Edema, Heaviness Respiratory: Reports: Shortness of Breath - Physical Exam Vitals/I&O's: Vital Signs Temp Pulse Resp BP Pulse Ox 97.9 F 94 18 100/54 L 94 04/06/20 11:14 04/06/20 11:14 04/06/20 11:14 04/06/20 11:14 04/06/20 11:14 Oxygen Flow Rate (L/min) 2 Oxygen Delivery Method Nasal Cannula Weight: 133 kg Body Mass Index (BMI) 52.7 Intake and Output for Last 24 Hours 04/04/20 04/05/20 04/06/20 23:59 23:59 23:59 Intake Total 120 / 120 720 / 720 100 / 100 Output Total 850 / 850 75 / 75 Balance 120 / 120 -130 / -130 25 / 25 General: Alert, Oriented x3, Cooperative HEENT: Atraumatic, PERRLA, EOMI, Normocephalic Neck: Supple, No JVD, Negative Carotid Bruits Lungs: Rales Cardiovascular: Regular rate, No murmurs Abdomen: Bowel Sounds Present, Soft, Non Tender Extremities: Capillary Refill Less than 3 Seconds, Edema Skin: No rashes, No breakdown Musculoskeletal: No Tenderness to Palpation of Joints or Extremities Neurological: Cranial nerves II-XII grossly intact Psych/Mental Status: Normal Affect, Appropriate Laboratory Results 04/06/20 06:26: WBC 6.3, RBC 2.23 L, Hgb 7.6 L, Hct 23.5 L, MCV 105.4 H, MCH 34.1 H, MCHC 32.3, RDW Std Deviation 61.5 H, RDW Coeff of Yuri 16.0 H, Plt Count 107 L, MPV 10.6 04/06/20 06:26: Sodium 138, Potassium 3.6, Chloride 104, Carbon Dioxide 29.0, Anion Gap 5, BUN 36 H, Creatinine 2.83 H, Estim Creat Clear Calc 14.00, Est GFR (MDRD) Af Amer 21 L, Est GFR (MDRD) Non-Af 17 L, BUN/Creatinine Ratio 12.7, Glucose 93, Calcium 7.6 L 04/06/20 08:48: Blood Type A POSITIVE, Antibody Screen NEGATIVE, Crossmatch See Detail Current Medications Acetaminophen (Tylenol) 650 mg PO Q6H PRN PRN PRN Reason: Pain Score 1-10/Temp > 100.7 F Last Admin: 04/06/20 10:24 Dose: 650 mg Documented by: Albuterol Sulfate (Ventolin Aerosols) 2.5 mg INHALATION Q4H PRN PRN PRN Reason: SHORTNESS OF BREATH Last Admin: 04/06/20 10:34 Dose: 2.5 mg Documented by: Allopurinol (Zyloprim) 100 mg PO DAILY [facility] Last Admin: 04/06/20 10:24 Dose: 100 mg Documented by: Atorvastatin Calcium (Lipitor) 5 mg PO QHS [facility] Last Admin: 04/05/20 21:26 Dose: 5 mg Documented by: Dextrose (D50w Syringe) 0 gm IV X1 PRN; Protocol PRN Reason: Hypoglycemia Gabapentin (Neurontin) 600 mg PO BID PRN PRN PRN Reason: Neuropathy Last Admin: 04/05/20 21:25 Dose: 300 mg Documented by: Glucagon () 1 mg IM .X1 PRN PRN Reason: Hypoglycemia Heparin Sodium (Porcine) (Heparin Na) 5,000 unit SC Q12 [facility] Last Admin: 04/06/20 10:25 Dose: 5,000 unit Documented by: Furosemide 500 mg/ N/A 50 mls @ 2 mls/hr CONT INF .Q25H [facility] Levothyroxine Sodium (Synthroid) 125 mcg PO DAILY@0600 [facility] Last Admin: 04/06/20 05:50 Dose: 125 mcg Documented by: Metolazone (Zaroxolyn) 5 mg PO DAILY [facility] Metoprolol Succinate (Toprol Xl (Beta Britney)) 50 mg PO DAILY [facility] Last Admin: 04/06/20 10:34 Dose: Not Given Documented by: Nitroglycerin (Nitrostat) 0.4 mg SUBLINGUAL Q5M PRN PRN Reason: CARDIAC/CHEST PAIN Nutritional Formula (Lactose Free) (Ensure Enlive) 120 ml PO 4X/DAY [facility] Last Admin: 04/06/20 10:21 Dose: Not Given Documented by: Pantoprazole Sodium (Protonix) 20 mg PO DAILY PRN PRN PRN Reason: HEARTBURN Polysaccharide Iron Complex (Ferrex 150) 150 mg PO DAILY [facility] Last Admin: 04/06/20 10:24 Dose: 150 mg Documented by: Sodium Chloride () 10 - 40 ml IV UD PRN PRN Reason: SALINE FLUSH Last Admin: 04/06/20 06:05 Dose: 10 ml Documented by: Assessment/Plan In summary she has CKD stage IV with baseline creatinine around 2.6. She had a positive serum protein electrophoresis. Had a M protein of 0.6 g. Skeletal survey was negative. Did not have hypercalcemia. She does have anemia. Has seen hematology and was told she has monoclonal gammopathy of undetermined significance. Renal ultrasound in September 2019 showed bilateral atrophic kidneys hence a kidney biopsy was not pursued. At baseline she has nonnephrotic range proteinuria. Last urine protein estimation was at 0.9 g. Congestive heart failure with elevated right-sided pressures Cirrhosis presumably Lora cirrhosis About 40 to 50 pound weight gain. She has massive edema extending up to the abdominal wall. Plan Discussed with patient. Blood pressure values are on the lower side likely due to decompensated heart failure. Will try high-dose Lasix drip. If no significant change in urine output, we may have to do short-term dialysis. Patient is agreeable to do dialysis if Lasix drip does not work. I did send a message to her primary commercial counsel at [facility].
--- NOTE | 2020-04-06 11:49 | PCM.PROGNOTE ---
<Beckie Cornell - Last Filed: 04/06/20 12:01> Subjective: Patient seen and examined. Continues to have significant swelling however reports improvement in breathing. Plan for 1 unit PRBC due to anemia. - Physical Exam Vitals/I&O's: Vital Signs Temp Pulse Resp BP Pulse Ox 98.0 F 90 18 100/49 L 95 04/06/20 11:30 04/06/20 11:30 04/06/20 11:30 04/06/20 11:30 04/06/20 11:30 Oxygen Flow Rate (L/min) 2 Oxygen Delivery Method Nasal Cannula Weight: 293 lb 3.437 oz Body Mass Index (BMI) 52.7 Intake and Output for Last 24 Hours 04/04/20 04/05/20 04/06/20 23:59 23:59 23:59 Intake Total 120 / 120 720 / 720 100 / 100 Output Total 850 / 850 75 / 75 Balance 120 / 120 -130 / -130 25 / 25 General: Alert, Oriented x3, Cooperative HEENT: Atraumatic, PERRLA, EOMI, Normocephalic Neck: Supple, No JVD, Negative Carotid Bruits Lungs: Diminished, - - Faint crackles bilateral bases Cardiovascular: Regular rate, Regular Rhythm, Normal S1, Normal S2, No murmurs Abdomen: Bowel Sounds Present, Soft, Non Tender, Non-Distended, Obese, - - Ascites Extremities: No clubbing, No cyanosis, Edema - +3 bilateral lower extremity edema extending to abdomen Skin: No rashes, No breakdown Musculoskeletal: No Tenderness to Palpation of Joints or Extremities Neurological: Cranial nerves II-XII grossly intact, Neuro grossly intact Psych/Mental Status: Normal Affect, Appropriate Laboratory Results 04/06/20 06:26: WBC 6.3, RBC 2.23 L, Hgb 7.6 L, Hct 23.5 L, MCV 105.4 H, MCH 34.1 H, MCHC 32.3, RDW Std Deviation 61.5 H, RDW Coeff of Yuri 16.0 H, Plt Count 107 L, MPV 10.6 04/06/20 06:26: Sodium 138, Potassium 3.6, Chloride 104, Carbon Dioxide 29.0, Anion Gap 5, BUN 36 H, Creatinine 2.83 H, Estim Creat Clear Calc 14.00, Est GFR (MDRD) Af Amer 21 L, Est GFR (MDRD) Non-Af 17 L, BUN/Creatinine Ratio 12.7, Glucose 93, Calcium 7.6 L 04/06/20 08:48: Blood Type A POSITIVE, Antibody Screen NEGATIVE, Crossmatch See Detail Current Medications Acetaminophen (Tylenol) 650 mg PO Q6H PRN PRN PRN Reason: Pain Score 1-10/Temp > 100.7 F Last Admin: 04/06/20 10:24 Dose: 650 mg Documented by: Albuterol Sulfate (Ventolin Aerosols) 2.5 mg INHALATION Q4H PRN PRN PRN Reason: SHORTNESS OF BREATH Last Admin: 04/06/20 10:34 Dose: 2.5 mg Documented by: Allopurinol (Zyloprim) 100 mg PO DAILY [facility] Last Admin: 04/06/20 10:24 Dose: 100 mg Documented by: Atorvastatin Calcium (Lipitor) 5 mg PO QHS [facility] Last Admin: 04/05/20 21:26 Dose: 5 mg Documented by: Dextrose (D50w Syringe) 0 gm IV X1 PRN; Protocol PRN Reason: Hypoglycemia Gabapentin (Neurontin) 600 mg PO BID PRN PRN PRN Reason: Neuropathy Last Admin: 04/05/20 21:25 Dose: 300 mg Documented by: Glucagon () 1 mg IM .X1 PRN PRN Reason: Hypoglycemia Heparin Sodium (Porcine) (Heparin Na) 5,000 unit SC Q12 [facility] Last Admin: 04/06/20 10:25 Dose: 5,000 unit Documented by: Furosemide 500 mg/ N/A 50 mls @ 2 mls/hr CONT INF .Q25H [facility] Levothyroxine Sodium (Synthroid) 125 mcg PO DAILY@0600 [facility] Last Admin: 04/06/20 05:50 Dose: 125 mcg Documented by: Metolazone (Zaroxolyn) 5 mg PO DAILY [facility] Metoprolol Succinate (Toprol Xl (Beta Britney)) 50 mg PO DAILY [facility] Last Admin: 04/06/20 10:34 Dose: Not Given Documented by: Nitroglycerin (Nitrostat) 0.4 mg SUBLINGUAL Q5M PRN PRN Reason: CARDIAC/CHEST PAIN Nutritional Formula (Lactose Free) (Ensure Enlive) 120 ml PO 4X/DAY [facility] Last Admin: 04/06/20 10:21 Dose: Not Given Documented by: Pantoprazole Sodium (Protonix) 20 mg PO DAILY PRN PRN PRN Reason: HEARTBURN Polysaccharide Iron Complex (Ferrex 150) 150 mg PO DAILY [facility] Last Admin: 04/06/20 10:24 Dose: 150 mg Documented by: Sodium Chloride () 10 - 40 ml IV UD PRN PRN Reason: SALINE FLUSH Last Admin: 04/06/20 06:05 Dose: 10 ml Documented by: Medical Necessity - Tobacco Use Smoking Status: Never smoker Assessment/Plan 1. Acute heart failure with preserved ejection fraction complicated by chronic kidney disease stage IV-patient reports she has had lower extremity edema for a long time, worsened recently. Denies history of CHF. BNP not significantly elevated. Chest x-ray without CHF. Echocardiogram October 2015 demonstrated an EF of 50 to 55%. Patient had severe pulmonary hypertension at that time however she was also diagnosed with PE at time of echo. Repeat echocardiogram demonstrates an EF of 55%, RVSP estimated to be 30 mmHg. Initiated on Lasix drip. Strict I&O. Daily weight. Benjamin wraps bilateral lower extremities. 2. Chronic kidney disease stage IV-appears at baseline. Per patient, dialysis has been discussed with patient. She follows with Dr. Yan, JACKI. Will consult nephrology. Trend BMP. Nephrology initiated on Lasix drip as noted above. If no significant urine output, may need short-term dialysis. 3. History of pulmonary embolism-previously on Eliquis which has since been discontinued. 4. History of gout-continue allopurinol regimen. 5. Hypothyroidism-continue Synthroid regimen. 6. Sjogren's syndrome 7. Hyperlipidemia-continue statin. 8. Hypertension-stable, continue metoprolol regimen. 9. Anemia of chronic disease/iron deficiency anemia-stable, trend CBC. Continue iron supplementation. DVT prophylaxis-Heparin subcu This patient was seen by MARCO Gomes under the supervision of Dr. Christie. <Tien Christie - Last Filed: 04/06/20 12:14> - Physical Exam Vitals/I&O's: Vital Signs Temp Pulse Resp BP Pulse Ox 98.0 F 82 18 100/49 L 95 04/06/20 11:30 04/06/20 11:32 04/06/20 11:30 04/06/20 11:30 05/13/20 11:30 Oxygen Flow Rate (L/min) 2 Oxygen Delivery Method Nasal Cannula Weight: 293 lb 3.437 oz Body Mass Index (BMI) 52.7 Intake and Output for Last 24 Hours 04/04/20 04/05/20 04/06/20 23:59 23:59 23:59 Intake Total 120 / 120 720 / 720 280 / 280 Output Total 850 / 850 225 / 225 Balance 120 / 120 -130 / -130 55 / 55 Laboratory Results 04/06/20 06:26: WBC 6.3, RBC 2.23 L, Hgb 7.6 L, Hct 23.5 L, MCV 105.4 H, MCH 34.1 H, MCHC 32.3, RDW Std Deviation 61.5 H, RDW Coeff of Yuri 16.0 H, Plt Count 107 L, MPV 10.6 04/06/20 06:26: Sodium 138, Potassium 3.6, Chloride 104, Carbon Dioxide 29.0, Anion Gap 5, BUN 36 H, Creatinine 2.83 H, Estim Creat Clear Calc 14.00, Est GFR (MDRD) Af Amer 21 L, Est GFR (MDRD) Non-Af 17 L, BUN/Creatinine Ratio 12.7, Glucose 93, Calcium 7.6 L 04/06/20 08:48: Blood Type A POSITIVE, Antibody Screen NEGATIVE, Crossmatch See Detail Current Medications Acetaminophen (Tylenol) 650 mg PO Q6H PRN PRN PRN Reason: Pain Score 1-10/Temp > 100.7 F Last Admin: 04/06/20 10:24 Dose: 650 mg Documented by: Albuterol Sulfate (Ventolin Aerosols) 2.5 mg INHALATION Q4H PRN PRN PRN Reason: SHORTNESS OF BREATH Last Admin: 04/06/20 10:34 Dose: 2.5 mg Documented by: Allopurinol (Zyloprim) 100 mg PO DAILY [facility] Last Admin: 04/06/20 10:24 Dose: 100 mg Documented by: Atorvastatin Calcium (Lipitor) 5 mg PO QHS [facility] Last Admin: 04/05/20 21:26 Dose: 5 mg Documented by: Dextrose (D50w Syringe) 0 gm IV X1 PRN; Protocol PRN Reason: Hypoglycemia Gabapentin (Neurontin) 600 mg PO BID PRN PRN PRN Reason: Neuropathy Last Admin: 05/12/20 21:25 Dose: 300 mg Documented by: Glucagon () 1 mg IM .X1 PRN PRN Reason: Hypoglycemia Heparin Sodium (Porcine) (Heparin Na) 5,000 unit SC Q12 [facility] Last Admin: 04/06/20 10:25 Dose: 5,000 unit Documented by: Furosemide 500 mg/ N/A 50 mls @ 2 mls/hr CONT INF .Q25H [facility] Levothyroxine Sodium (Synthroid) 125 mcg PO DAILY@0600 [facility] Last Admin: 04/06/20 05:50 Dose: 125 mcg Documented by: Metolazone (Zaroxolyn) 5 mg PO DAILY [facility] Metoprolol Succinate (Toprol Xl (Beta Britney)) 50 mg PO DAILY [facility] Last Admin: 04/06/20 10:34 Dose: Not Given Documented by: Nitroglycerin (Nitrostat) 0.4 mg SUBLINGUAL Q5M PRN PRN Reason: CARDIAC/CHEST PAIN Nutritional Formula (Lactose Free) (Ensure Enlive) 120 ml PO 4X/DAY [facility] Last Admin: 04/06/20 10:21 Dose: Not Given Documented by: Pantoprazole Sodium (Protonix) 20 mg PO DAILY PRN PRN PRN Reason: HEARTBURN Polysaccharide Iron Complex (Ferrex 150) 150 mg PO DAILY [facility] Last Admin: 04/06/20 10:24 Dose: 150 mg Documented by: Sodium Chloride () 10 - 40 ml IV UD PRN PRN Reason: SALINE FLUSH Last Admin: 04/06/20 06:05 Dose: 10 ml Documented by: Assessment/Plan Hospitalist note: I am seeing this patient in conjunction with Beckie Cornell. I independently seen and examined the patient. Progress note above, laboratory data and imaging studies reviewed and I concur with above treatment plan. Today, she reported improvement in her breathing, less short of breath. Still having leg edema. Reported cough without sputum production. Denied chest pain or palpitation. She remains on 2 L of oxygen, other vital signs are stable. - Physical Exam General: Alert, Oriented x3, Cooperative, minimal shortness of breath. HEENT: Atraumatic, PERRLA, EOMI. Neck: Supple, No JVD, Negative Carotid Bruits, Trachea Midline, Thyroid Normal. Lungs: Diminished breath sounds at the bases, bilateral faint basilar crackles, No rhonchi, No wheeze. Cardiovascular: Regular rate, Regular Rhythm, Normal S1, Normal S2, PMI Normal. Abdomen: Bowel Sounds Present, Soft, Non Tender, Non-Distended, No Hepato-splenomegaly. Extremities: No clubbing, No cyanosis, +++ edema Skin: No rashes, No breakdown Neurological: Cranial nerves are intact, neuro grossly intact Vital Signs are stable. Assessment and plan: #1 acute diastolic CHF with preserved ejection fraction: In context of stage IV chronic kidney disease. She is on IV Lasix and metoprolol. Nephrology recommended to start IV Lasix drip which was started. She is not on BENJAMIN inhibitor because of chronic kidney disease. 2D echocardiogram revealed ejection fraction 55%, moderately dilated right ventricle, RVSP of 30. EKG revealed no acute ischemic changes. Troponin is negative x3. Plan to continue IV diuresis, repeat CBC and BMP tomorrow morning. #2 acute on chronic anemia: Baseline hemoglobin has been around 9 to 11 g/dL over the last year. Today, hemoglobin is 7.6 g/dL. Patient denies any active bleeding. Plan to transfuse 1 unit of packed RBCs, repeat CBC tomorrow morning. #2 hypoxia: Secondary to #1. Remained on 2 L. Plan to continue IV diuresis, albuterol PRN, oxygen to keep O2 saturation more than 92%. Plan as above, continue IV diuresis, blood transfusion which may help taking care off oxygen. #3 stage IV chronic kidney disease: Serum BUN and creatinine are at the baseline, stable. Nephrology consulted, started on IV Lasix drip as above. Patient may need short-term dialysis according to nephrology if the Lasix drip did not work. Plan to repeat BMP tomorrow morning. #4 other chronic medical problems: Stable, continue current medications as above. This note was generated with [employer] software. It may contain incorrect words, spelling, and punctuation that were not noted in checking the note before signing. Inpatient E&M: 08847 Subs Hosp L2
[2020-04-06 12:55] LABS: Magnesium 1.6 mg/dL (1.6-2.6); Thyroid Stim Hormone (TSH) 1.18 uIU/mL (0.358-3.74)
--- NOTE | 2020-04-06 14:28 | CASEMGMT ---
SW spoke with patient regarding d/c plan. SW asked if she still feels she is fine for home or if she feels she needs rehab somewhere. She said she is going home and will work with her home health nurse and therapists. Plan: d/c home with resumption of home health. Estella NIÑO MSW
[2020-04-06] MEDS: Furosemide 500 MG in Empty Viaflex 50 mL 1 EACH CONT INF (16:10)
[2020-04-06] MEDS: Menthol/Lanolin/Calamine/Znox 113 GM Tube 1 APPLIC TOPICAL (21:08)
[2020-04-06] MEDS: Atorvastatin Calcium 10 MG Tablet 5 MG PO (21:09)
[2020-04-07] VITALS (12 sets, daily range): BP systolic 96–122; BP diastolic 49–63; PULSE 78–86; RESP 18; TEMP 36.4–36.8; O2SAT 92–95
[2020-04-07] MEDS: Levothyroxine 125 MCG Tablet PO (06:05)
[2020-04-07 06:10] LABS: Hemoglobin 8.5 g/dL (12.0-15.0); Mean Corp Hgb Conc 32.7 g/dL (32-36); Mean Corpuscular Hgb 33.6 pg (27.0-32.0); Mean Corpuscular Volume 102.8 fL (81-99); Mean Platelet Vol. 9.9 fl (6.2-12.0); POSITIVE MORPHOLOGY YES; Platelet Count 103 K/mm3 (150-450); RBC Distribution Width CV 17.6 % (11.6-14.6); RBC Distribution Width SD 65.1 fl (35.1-43.9); Red Blood Count 2.53 M/mm3 (4.2-5.4); Scan Indicated on CBC? Y/N YES- FLAGS NOTED
[2020-04-07 06:36] LABS: Anion Gap 7 (5-15); BUN 39 mg/dL (7-18); BUN/Creat Ratio 14.7 RATIO (10-20); Calcium,Total 7.7 mg/dL (8.5-10.1); Chloride 102 mmol/L (98-107); Creatinine, Serum 2.66 mg/dL (0.55-1.02); EST Glomerular Filtration Rate 19 mL/min (>60); Est Glom Filt Rate - Afr Amer 23 mL/min (>60); Glucose 95 mg/dL (74-106); Potassium 3.5 mmol/L (3.5-5.1); Sodium Level 137 mmol/L (136-145)
[2020-04-07 07:00] LABS: Differential Comment SCANNED
[2020-04-07] MEDS: Furosemide 500 MG in Empty Viaflex 50 mL 1 EACH CONT INF ×2 (07:45→20:25)
[2020-04-07] MEDS: Acetaminophen 325 MG Tablet 650 MG PO (08:50)
--- NOTE | 2020-04-07 10:04 | US_ITS ---
STUDY: RENAL ULTRASOUND - COMPLETE REASON FOR EXAM: Female, 74 years old. FLUID RETENTION TECHNIQUE: Ultrasound evaluation of the kidneys was performed with real-time and static ohara-scale imaging. COMPARISON: None. FINDINGS: RIGHT KIDNEY: with mild renal atrophy. The right kidney measures 8.2 cm x 4.7 cm x 4.0 cm. There is diffuse thinning of the renal cortex. The renal cortex measures 0.9 cm. There is a 1.3 cm x 1.3 cm x 1.1 cm right renal cyst. There are no right renal calculi. There is no right hydronephrosis. DISTAL RIGHT URETER: There is non-visualization of the distal right ureter. There is no demonstrated right ureterovesical junction calculus. There is no demonstrated right ureteral jet. LEFT KIDNEY: The left kidney was not visualized. There is evidence of ascites. US/Kidney and Bladder IMPRESSION: Limited examination. Small cyst in the right kidney with atrophy. The left kidney was not visualized. Ascites. Electronically Signed: Mg Meraz, at 14:56 EDT , Service support ,
--- NOTE | 2020-04-07 10:06 | PN_ITS ---
Subjective: no sob/cp - Physical Exam Vitals/I&O's: Vital Signs Temp Pulse Resp BP Pulse Ox 97.8 F 85 18 96/59 L 92 04/07/20 09:26 04/07/20 09:26 04/07/20 09:26 04/07/20 09:26 04/07/20 09:26 Oxygen Flow Rate (L/min) 2 Oxygen Delivery Method Nasal Cannula Weight: 132.5 kg Body Mass Index (BMI) 52.7 Intake and Output for Last 24 Hours 04/05/20 04/06/20 04/07/20 23:59 23:59 23:59 Intake Total 720 / 720 880 / 880 151.17 / 151.17 Output Total 850 / 850 675 / 675 250 / 250 Balance -130 / -130 205 / 205 -98.83 / -98.83 General: Alert, Cooperative HEENT: Atraumatic Oral: Moist Mucosa Neck: Supple Lungs: Clear to auscultation, Normal air movement Cardiovascular: Regular rate, Regular Rhythm, Normal S1, Normal S2 Abdomen: Bowel Sounds Present, Soft, Obese Extremities: No clubbing, No cyanosis, Edema Laboratory Results 04/06/20 06:26: Magnesium 1.6, TSH 1.18 04/06/20 08:48: Blood Type A POSITIVE, Antibody Screen NEGATIVE, Crossmatch See Detail 04/07/20 05:59: WBC 6.0, RBC 2.53 L, Hgb 8.5 L, Hct 26.0 L, MCV 102.8 H, MCH 33.6 H, MCHC 32.7, RDW Std Deviation 65.1 H, RDW Coeff of Yuri 17.6 H, Plt Count 103 L, MPV 9.9, Differential Comment SCANNED 04/07/20 05:59: Sodium 137, Potassium 3.5, Chloride 102, Carbon Dioxide 28.0, Anion Gap 7, BUN 39 H, Creatinine 2.66 H, Estim Creat Clear Calc 14.90, Est GFR (MDRD) Af Amer 23 L, Est GFR (MDRD) Non-Af 19 L, BUN/Creatinine Ratio 14.7, Glucose 95, Calcium 7.7 L Current Medications Acetaminophen (Tylenol) 650 mg PO Q6H PRN PRN PRN Reason: Pain Score 1-10/Temp > 100.7 F Last Admin: 04/07/20 08:50 Dose: 650 mg Documented by: Albuterol Sulfate (Ventolin Aerosols) 2.5 mg INHALATION Q4H PRN PRN PRN Reason: SHORTNESS OF BREATH Last Admin: 04/06/20 10:34 Dose: 2.5 mg Documented by: Allopurinol (Zyloprim) 100 mg PO DAILY [facility] Last Admin: 04/06/20 10:24 Dose: 100 mg Documented by: Atorvastatin Calcium (Lipitor) 5 mg PO QHS [facility] Last Admin: 04/06/20 21:09 Dose: 5 mg Documented by: Calamine/Phenol (Calmoseptine Ointment) 1 applic TOPICAL BID [facility]; Protocol Last Admin: 04/06/20 21:08 Dose: 1 applicatio Documented by: Dextrose (D50w Syringe) 0 gm IV X1 PRN; Protocol PRN Reason: Hypoglycemia Gabapentin (Neurontin) 600 mg PO BID PRN PRN PRN Reason: Neuropathy Last Admin: 04/05/20 21:25 Dose: 300 mg Documented by: Glucagon () 1 mg IM .X1 PRN PRN Reason: Hypoglycemia Heparin Sodium (Porcine) (Heparin Na) 5,000 unit SC Q12 [facility] Last Admin: 04/06/20 21:09 Dose: 5,000 unit Documented by: Furosemide 500 mg/ N/A 50 mls @ 2 mls/hr CONT INF .Q25H [facility] Last Admin: 04/07/20 07:45 Dose: 20 mg/hr, 2 mls/hr Documented by: Levothyroxine Sodium (Synthroid) 125 mcg PO DAILY@0600 [facility] Last Admin: 04/07/20 06:05 Dose: 125 mcg Documented by: Metolazone (Zaroxolyn) 5 mg PO DAILY [facility] Metoprolol Succinate (Toprol Xl (Beta Britney)) 50 mg PO DAILY [facility] Last Admin: 04/06/20 10:34 Dose: Not Given Documented by: Nitroglycerin (Nitrostat) 0.4 mg SUBLINGUAL Q5M PRN PRN Reason: CARDIAC/CHEST PAIN Nutritional Formula (Lactose Free) (Ensure Enlive) 120 ml PO 4X/DAY [facility] Last Admin: 04/06/20 21:09 Dose: Not Given Documented by: Pantoprazole Sodium (Protonix) 20 mg PO DAILY PRN PRN PRN Reason: HEARTBURN Polysaccharide Iron Complex (Ferrex 150) 150 mg PO DAILY [facility] Last Admin: 04/06/20 10:24 Dose: 150 mg Documented by: Sodium Chloride () 10 - 40 ml IV UD PRN PRN Reason: SALINE FLUSH Last Admin: 04/06/20 16:10 Dose: 10 ml Documented by: Medical Necessity - Tobacco Use Smoking Status: Never smoker Assessment/Plan CKD stage IV with baseline creatinine around 2.6. 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 Renal ultrasound in September 2019 showed bilateral atrophic kidneys hence a kidney biopsy was not pursued. Congestive heart failure with elevated right-sided pressures Cirrhosis presumably Lora cirrhosis on lasix drip and metolazone. Check a PVR and renal ultrasound check UA. Would add midodrine if ok with primary. I discussed with the patient about the major risks and benefits of dialysis but she is not decided at this time if the need for dialysis arises in the future. Renal function stable consistent with baseline. Documented urine output of 675 ml yesterday but Lasix drip was mostly held because of hypotension.
[2020-04-07] MEDS: Iron Polysaccharide Complex 150 MG CAPSULE PO (10:28)
[2020-04-07] MEDS: Menthol/Lanolin/Calamine/Znox 113 GM Tube 1 APPLIC TOPICAL ×2 (10:28→21:18)
[2020-04-07] MEDS: Heparin Injection (Vial) 5,000 UNIT/ML VIAL 5000 UNIT SC ×2 (10:28→21:17)
[2020-04-07] MEDS: metOLazone 5 MG Tablet PO (10:29)
[2020-04-07] MEDS: Allopurinol 100 MG Tablet PO (10:29)
--- NOTE | 2020-04-07 10:54 | US_ITS ---
STUDY: ABDOMINAL ULTRASOUND -4 quadrants. REASON FOR VISIT: Female, 74 years old ASCITES SURVEY TECHNIQUE: Ultrasound evaluation of the 4 quadrants was performed with real-time and static díaz-scale imaging. TECHNICAL QUALITY: Adequate. COMPARISON: None. FINDINGS: There is a large amount of ascites. US/Abdomen Limited IMPRESSION: Large amount of ascites. Electronically Signed: Mg Meraz, at 14:57 EDT , Service support ,
[2020-04-07 11:46] LABS: AST(SGOT) 27 U/L (15-37); Alanine Aminotransfer ALT/SGPT 12 U/L (13-56); Albumin, Serum 1.7 g/dL (3.2-5.0); Alkaline Phosphatase 64 U/L (45-117); Bilirubin, Direct 0.84 mg/dL (0.00-0.30); Globulin 3.6 g/dL (2.2-4.2); Phosphorus 3.4 mg/dL (2.5-4.9); Protein, Total 5.3 g/dL (6.4-8.2)
[2020-04-07] MEDS: Magnesium Oxide 400 MG Tablet 800 MG PO (12:03)
--- NOTE | 2020-04-07 12:44 | PCM.PN.HOSP ---
<Senthil Parker - Last Filed: 04/07/20 12:44> Reason for Visit: SOB Subjective: Breathing improved. Pt primarily complains of abdominal distention. Pt reports urinating ok however her post void residual showed >999cc. Bose to be placed. No CP, tighness, heaviness. No Abd pain. Vitals/I&O's: Vital Signs Temp Pulse Resp BP Pulse Ox 97.9 F 84 18 100/49 L 93 04/07/20 12:15 04/07/20 12:15 04/07/20 12:15 04/07/20 12:15 04/07/20 12:15 Oxygen Flow Rate (L/min) 2 Oxygen Delivery Method Nasal Cannula Weight: 292 lb 1.8 oz Body Mass Index (BMI) 52.7 Intake and Output for Last 24 Hours 04/05/20 04/06/20 04/07/20 23:59 23:59 23:59 Intake Total 720 / 720 880 / 880 151.17 / 151.17 Output Total 850 / 850 675 / 675 550 / 550 Balance -130 / -130 205 / 205 -398.83 / -398.83 General: Alert, Oriented x3, Cooperative HEENT: Atraumatic, PERRLA, EOMI, Normocephalic Neck: Supple, No JVD, Negative Carotid Bruits Lungs: Clear to auscultation, Diminished Cardiovascular: Regular rate, No murmurs Abdomen: Bowel Sounds Present, Non Tender, Distended - firm Extremities: Capillary Refill Less than 3 Seconds, Edema Skin: No rashes, No breakdown Musculoskeletal: No Tenderness to Palpation of Joints or Extremities Neurological: Cranial nerves II-XII grossly intact Psych/Mental Status: Normal Affect, Appropriate, Alert and oriented to time, place, person, mood and affect Laboratory Results 04/06/20 06:26: Magnesium 1.6, TSH 1.18 04/06/20 08:48: Crossmatch See Detail 04/07/20 05:59: WBC 6.0, RBC 2.53 L, Hgb 8.5 L, Hct 26.0 L, MCV 102.8 H, MCH 33.6 H, MCHC 32.7, RDW Std Deviation 65.1 H, RDW Coeff of Yuri 17.6 H, Plt Count 103 L, MPV 9.9, Differential Comment SCANNED 04/07/20 05:59: Sodium 137, Potassium 3.5, Chloride 102, Carbon Dioxide 28.0, Anion Gap 7, BUN 39 H, Creatinine 2.66 H, Estim Creat Clear Calc 14.90, Est GFR (MDRD) Af Amer 23 L, Est GFR (MDRD) Non-Af 19 L, BUN/Creatinine Ratio 14.7, Glucose 95, Calcium 7.7 L 04/07/20 05:59: Phosphorus 3.4, Total Bilirubin 2.10 H, Direct Bilirubin 0.84 H, AST 27, ALT 12 L, Alkaline Phosphatase 64, Total Protein 5.3 L, Albumin 1.7 L, Globulin 3.6 04/07/20 05:59: Phosphorus Cancelled Current Medications Albuterol Sulfate (Ventolin Aerosols) 2.5 mg INHALATION Q4H PRN PRN PRN Reason: SHORTNESS OF BREATH Last Admin: 04/06/20 10:34 Dose: 2.5 mg Documented by: Allopurinol (Zyloprim) 100 mg PO DAILY [facility] Last Admin: 04/07/20 10:29 Dose: 100 mg Documented by: Atorvastatin Calcium (Lipitor) 5 mg PO QHS [facility] Last Admin: 04/06/20 21:09 Dose: 5 mg Documented by: Calamine/Phenol (Calmoseptine Ointment) 1 applic TOPICAL BID [facility]; Protocol Last Admin: 04/07/20 10:28 Dose: 1 applicatio Documented by: Dextrose (D50w Syringe) 0 gm IV X1 PRN; Protocol PRN Reason: Hypoglycemia Gabapentin (Neurontin) 600 mg PO BID PRN PRN PRN Reason: Neuropathy Last Admin: 04/05/20 21:25 Dose: 300 mg Documented by: Glucagon () 1 mg IM .X1 PRN PRN Reason: Hypoglycemia Heparin Sodium (Porcine) (Heparin Na) 5,000 unit SC Q12 [facility] [place] Last Admin: 04/07/20 10:28 Dose: 5,000 unit Documented by: Furosemide 500 mg/ N/A 50 mls @ 2 mls/hr CONT INF .Q25H [facility] [place] Last Admin: 04/07/20 07:45 Dose: 20 mg/hr, 2 mls/hr Documented by: Levothyroxine Sodium (Synthroid) 125 mcg PO DAILY@0600 [facility] [place] Last Admin: 04/07/20 06:05 Dose: 125 mcg Documented by: Metolazone (Zaroxolyn) 5 mg PO DAILY [facility] [place] Last Admin: 04/07/20 10:29 Dose: 5 mg Documented by: Metoprolol Succinate (Toprol Xl (Beta Britney)) 50 mg PO DAILY [facility] [place] Last Admin: 04/07/20 10:26 Dose: Not Given Documented by: Midodrine (Proamatine) 5 mg PO TID [facility] Nitroglycerin (Nitrostat) 0.4 mg SUBLINGUAL Q5M PRN PRN Reason: CARDIAC/CHEST PAIN Nutritional Formula (Lactose Free) (Ensure Enlive) 120 ml PO 4X/DAY [facility] [place] Last Admin: 04/07/20 10:27 Dose: Not Given Documented by: Pantoprazole Sodium (Protonix) 20 mg PO DAILY PRN PRN PRN Reason: HEARTBURN Polysaccharide Iron Complex (Ferrex 150) 150 mg PO DAILY [facility] [place] Last Admin: 04/07/20 10:28 Dose: 150 mg Documented by: Sodium Chloride () 10 - 40 ml IV UD PRN PRN Reason: SALINE FLUSH Last Admin: 04/06/20 16:10 Dose: 10 ml Documented by: STROKE Vital Signs/Narrative: Vital Signs Temp Pulse Resp BP Pulse Ox 04/07/20 12:15 97.9 F 84 18 100/49 L 93 04/07/20 10:25 97.7 F L 78 18 100/58 L 95 04/07/20 09:26 97.8 F 85 18 96/59 L 92 04/07/20 09:03 94 Medical Necessity - Tobacco Use Smoking Status: Never smoker Assessment/Plan 1. Acute on chronic diastolic CHF complicated by pulmonary htn, Cirrhosis, urinary retention, and hypoalbuminemia - obtain ascites survey. T and direct bili elevated. Echo shows EF 55%, RVSP 30 mmHg, diastolic dysfunction. Mildly elevated BNP. -Continue lasix drip. -Bose placed for urinary retention. -TSH nl. -CXR with diminished lungs, atelectasis vs infiltrate BL bases. No fever/leukocytosis 2. Macrocytic anemia - prior studies without clear etiology. will trend. s/p 1 unit prbc. continue ferrex. 3. Thrombocytopenia suspect 2/2 cirrhosis - will trend. 4. CKDIV - trend. nephrology following. Renal US pending. UA pending. 5. hypotension - midodrine started. metoprolol held this AM for systolic <105. 6. Hypomagnesemia - replete. 7. 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 hold heparin with thrombocytopenia This patient was seen by Senthil Parker PA-C under the supervision of Dr. Christie. <Tien Christie E - Last Filed: 04/07/20 13:12> Vitals/I&O's: Vital Signs Temp Pulse Resp BP Pulse Ox 97.9 F 84 18 100/49 L 93 04/07/20 12:15 04/07/20 12:15 04/07/20 12:15 04/07/20 12:15 04/07/20 12:15 Oxygen Flow Rate (L/min) 2 Oxygen Delivery Method Nasal Cannula Weight: 292 lb 1.8 oz Body Mass Index (BMI) 52.7 Intake and Output for Last 24 Hours 04/05/20 04/06/20 04/07/20 23:59 23:59 23:59 Intake Total 720 / 720 880 / 880 151.17 / 151.17 Output Total 850 / 850 675 / 675 550 / 550 Balance -130 / -130 205 / 205 -398.83 / -398.83 Laboratory Results 04/06/20 08:48: Crossmatch See Detail 04/07/20 05:59: WBC 6.0, RBC 2.53 L, Hgb 8.5 L, Hct 26.0 L, MCV 102.8 H, MCH 33.6 H, MCHC 32.7, RDW Std Deviation 65.1 H, RDW Coeff of Yuri 17.6 H, Plt Count 103 L, MPV 9.9, Differential Comment SCANNED 04/07/20 05:59: Sodium 137, Potassium 3.5, Chloride 102, Carbon Dioxide 28.0, Anion Gap 7, BUN 39 H, Creatinine 2.66 H, Estim Creat Clear Calc 14.90, Est GFR (MDRD) Af Amer 23 L, Est GFR (MDRD) Non-Af 19 L, BUN/Creatinine Ratio 14.7, Glucose 95, Calcium 7.7 L 04/07/20 05:59: Phosphorus 3.4, Total Bilirubin 2.10 H, Direct Bilirubin 0.84 H, AST 27, ALT 12 L, Alkaline Phosphatase 64, Total Protein 5.3 L, Albumin 1.7 L, Globulin 3.6 04/07/20 05:59: Phosphorus Cancelled Current Medications Albuterol Sulfate (Ventolin Aerosols) 2.5 mg INHALATION Q4H PRN PRN PRN Reason: SHORTNESS OF BREATH Last Admin: 04/06/20 10:34 Dose: 2.5 mg Documented by: Allopurinol (Zyloprim) 100 mg PO DAILY [facility] Last Admin: 04/07/20 10:29 Dose: 100 mg Documented by: Atorvastatin Calcium (Lipitor) 5 mg PO QHS [facility] [place] Last Admin: 04/06/20 21:09 Dose: 5 mg Documented by: Calamine/Phenol (Calmoseptine Ointment) 1 applic TOPICAL BID [facility]; Protocol Last Admin: 04/07/20 10:28 Dose: 1 applicatio Documented by: Dextrose (D50w Syringe) 0 gm IV X1 PRN; Protocol PRN Reason: Hypoglycemia Gabapentin (Neurontin) 600 mg PO BID PRN PRN PRN Reason: Neuropathy Last Admin: 04/05/20 21:25 Dose: 300 mg Documented by: Glucagon () 1 mg IM .X1 PRN PRN Reason: Hypoglycemia Heparin Sodium (Porcine) (Heparin Na) 5,000 unit SC Q12 [facility] Last Admin: 04/07/20 10:28 Dose: 5,000 unit Documented by: Furosemide 500 mg/ N/A 50 mls @ 2 mls/hr CONT INF .Q25H [facility] [place] Last Admin: 04/07/20 07:45 Dose: 20 mg/hr, 2 mls/hr Documented by: Levothyroxine Sodium (Synthroid) 125 mcg PO DAILY@0600 [facility] [place] Last Admin: 04/07/20 06:05 Dose: 125 mcg Documented by: Metolazone (Zaroxolyn) 5 mg PO DAILY [facility] [place] Last Admin: 04/07/20 10:29 Dose: 5 mg Documented by: Metoprolol Succinate (Toprol Xl (Beta Britney)) 50 mg PO DAILY [facility] [place] Last Admin: 04/07/20 10:26 Dose: Not Given Documented by: Midodrine (Proamatine) 5 mg PO TID [facility] [place] Nitroglycerin (Nitrostat) 0.4 mg SUBLINGUAL Q5M PRN PRN Reason: CARDIAC/CHEST PAIN Nutritional Formula (Lactose Free) (Ensure Enlive) 120 ml PO 4X/DAY [facility] [place] Last Admin: 04/07/20 10:27 Dose: Not Given Documented by: Pantoprazole Sodium (Protonix) 20 mg PO DAILY PRN PRN PRN Reason: HEARTBURN Polysaccharide Iron Complex (Ferrex 150) 150 mg PO DAILY [facility] Last Admin: 04/07/20 10:28 Dose: 150 mg Documented by: Sodium Chloride () 10 - 40 ml IV UD PRN PRN Reason: SALINE FLUSH Last Admin: 04/06/20 16:10 Dose: 10 ml Documented by: STROKE Vital Signs/Narrative: Vital Signs Temp Pulse Resp BP Pulse Ox 04/07/20 12:15 97.9 F 84 18 100/49 L 93 04/07/20 10:25 97.7 F L 78 18 100/58 L 95 04/07/20 09:26 97.8 F 85 18 96/59 L 92 Assessment/Plan Hospitalist note: I am seeing this patient in conjunction with Senthil Parker. I independently seen and examined the patient. Progress note above, laboratory data and imaging studies reviewed and I concur with above treatment plan. Patient complained of abdominal distention, still having leg edema with minimal improvement. Shortness of breath is improving. Apparently, IV Lasix drip was held for some time yesterday because of low blood pressure. Today, blood pressure is better, afebrile, heart rate stable, pulse ox is 95% on 2 L. - Physical Exam General: Alert, Oriented x3, Cooperative, no significant apparent distress. HEENT: Atraumatic, PERRLA, EOMI. Neck: Supple, No JVD, Negative Carotid Bruits, Trachea Midline, Thyroid Normal. Lungs: Diminished breath sounds at the bases, bilateral faint basilar crackles, No rhonchi, No wheeze. Cardiovascular: Regular rate, Regular Rhythm, Normal S1, Normal S2, PMI Normal. Abdomen: Bowel Sounds Present, Soft, Non Tender, Non-Distended, No Hepato-splenomegaly. Extremities: No clubbing, No cyanosis, +++ edema Skin: No rashes, No breakdown Neurological: Cranial nerves are intact, neuro grossly intact Vital Signs are stable. Assessment and plan: #1 acute diastolic CHF with preserved ejection fraction: She is on IV Lasix drip and metolazone. Started on midodrine because of low blood pressure. She does have history of stage IV chronic kidney disease. She is not on GANGA inhibitor because of chronic kidney disease. 2D echocardiogram revealed ejection fraction 55%, moderately dilated right ventricle, RVSP of 30. EKG revealed no acute ischemic changes. Troponin is negative x3. Nephrology on the case. Plan to continue IV diuresis. #2 acute on chronic anemia: Baseline hemoglobin has been around 9 to 11 g/dL over the last year. Received 1 unit of packed RBCs yesterday. Today's hemoglobin is 8.5 g/dL, plan to keep hemoglobin above 8 g/dL. Patient denies any active bleeding. #2 hypoxia: Secondary to #1. Remained on 2 L. Plan to continue IV diuresis, albuterol PRN, oxygen to keep O2 saturation more than 92%. #3 stage IV chronic kidney disease: Serum BUN and creatinine are at the baseline, stable. Nephrology consulted, recommended to continue IV diuresis for now. Urine output has been reasonable.. Patient may need short-term dialysis according to nephrology if the Lasix drip did not work. #4 other chronic medical problems: Stable, continue current medications as above. This note was generated with [employer] dictation software. It may contain incorrect words, spelling, and punctuation that were not noted in checking the note before signing. Inpatient E&M: 49441 Subs Hosp L2
[2020-04-07] MEDS: 0.9% Saline Lock 10 ML Syringe IV (14:54)
[2020-04-07 15:33] LABS: Bacteria 0 SEEN /hpf (None Seen); Mucous, Urine 0 SEEN /hpf (<or=2+); Red Blood Cells-Urine 0 SEEN /hpf (0-5); Squamous Epithelial Cells - UA 0 SEEN /hpf (5-10); White Blood Cells 0 SEEN /hpf (0-5)
[2020-04-07 15:51] LABS: Color, Urine Yellow (Yellow); Glucose, Dipstick Normal (Normal); Ketone-Dipstick Negative (Negative); Leukocyte Esterase-Dipstick Negative /ul (Negative); Nitrite-Dipstick Negative (Negative); Occult Blood-Urine 25 /ul (Negative); Protein-Dipstick Negative (Negative); Urine Bilirubin Dipstick Negative (Negative); Urine Clarity Clear (Clear); Urine Urobilinogen Normal (Normal)
[2020-04-07] MEDS: Midodrine HCl 5 MG Tablet PO ×2 (15:58→21:18)
[2020-04-07] MEDS: Atorvastatin Calcium 10 MG Tablet 5 MG PO (21:17)
[2020-04-08] VITALS (17 sets, daily range): BP systolic 80–125; BP diastolic 38–62; PULSE 62–94; RESP 15–18; TEMP 36.6–37.4; O2SAT 92–98
--- NOTE | 2020-04-08 | FLU_PTH ---
PATIENT: LUANNE SOTO LOC: PCU U#:[id number] AGE/SX: 74/F ROOM: [facility] RE04/04/[address]: Dr. Neel Howell MD : [id number] BED: 1 DIS: 04/11/2020 SPEC #: [id number] RECD: 04/08/20 13:25 STATUS: SRIKANTH REQ #: [id number] MAE: 04/08/20 00:[address]: Tien Christie DEPT: CYTOLOGY RECD BY: Clyde Ortega ENTERED: 04/08/20 13:26 SP TYPE: Fluid OTHR DR: MD Dr. Mathew Langston DO Dr. Jayaprakas Dasari, MD Tissues: PARACENTESIS FLUID Procedures: Special Stain Group II Surgery Specimen Level IV Cytospin Fluid HEADER OPERATION: Ultrasound-guided paracentesis PRE-OP DIAGNOSIS: Ascites TISSUE SUBMITTED: Paracentesis fluid for cytology DIAGNOSIS CYTOLOGY Paracentesis fluid for cytology (cytospin and cell block): Negative for malignant cells. SHANNAN:padmini 04/11/20 CYTOLOGY STUDY Slides are reviewed. CYTOLOGY GROSS Received is 90 ml of yellow cloudy fluid labeled with the patient's name and and designated per the requisition as paracentesis. Submitted for cytology preparation including cell block. / padmini 04/08/20 TC:5 CPT: 18863, 48776
[2020-04-08] MEDS: Midodrine HCl 5 MG Tablet PO ×3 (05:48→22:01)
[2020-04-08] MEDS: Levothyroxine 125 MCG Tablet PO (05:48)
[2020-04-08 06:34] LABS: Absolute Lymphocyte Count 0.96 X10^3/uL (0.83-4.51); Basophil# 0.04 X10^3/uL; Basophil% 0.6 % (0-1); Eosinophil# 1.06 X10^3/uL; Eosinophils% 15.8 % (0-5); Hematocrit 25.3 % (37-47); Hemoglobin 8.3 g/dL (12.0-15.0); Lymphocyte # 0.96 X10^3/ul (4.0); Lymphocyte % 14.3 % (19-41); Mean Corp Hgb Conc 32.8 g/dL (32-36); Mean Corpuscular Hgb 33.9 pg (27.0-32.0); Mean Corpuscular Volume 103.3 fL (81-99); Mean Platelet Vol. 10.9 fl (6.2-12.0); NRBC Flagged by Analyzer 0 % (0-5); Neutrophil # 4.01 X10^3/uL (2.7-7.7); POSITIVE MORPHOLOGY YES; Platelet Count 108 K/mm3 (150-450); RBC Distribution Width CV 17.9 % (11.6-14.6); RBC Distribution Width SD 65.4 fl (35.1-43.9); Red Blood Count 2.45 M/mm3 (4.2-5.4); White Blood Count 6.7 K/mm3 (4.4-11.0)
[2020-04-08 06:36] LABS: Differential Indicated SCAN CRITERIA MET
[2020-04-08 06:53] LABS: Differential Comment SCANNED; Microcytosis RARE; Ovalocyte RARE
--- NOTE | 2020-04-08 08:51 | US_ITS ---
PROCEDURE: Ultrasound guided paracentesis. DATE OF EXAMINATION: April 08, 2020. INDICATION: Female, 74 years old. Ascites. PHYSICIAN: Mg Meraz M.D. TECHNIQUE: The risks, benefits, and alternatives to the procedure were explained to the patient. The specific risks of bleeding, infection, and damage to bowel were detailed and accepted. Witnessed informed consent was obtained. The abdomen was ultrasonographically surveyed. An appropriate pocket of fluid was identified at the right lower quadrant. The skin were cleaned and prepped in the usual sterile fashion. Using ultrasound guidance, the peritoneal cavity was accessed with a 5-Z[place]ian paracentesis needle/catheter system. The trocar was removed. A total of 8150 ml of doroteo color fluid were removed from the peritoneal cavity. 100 mL sample was sent to laboratory. The catheter was removed and a sterile dressing was applied. The procedure was well tolerated. US/Paracentesis with US IMPRESSION: Ultrasound guided paracentesis. Electronically Signed: Mg Meraz, at 12:16 EDT , Service support ,
[2020-04-08 09:03] LABS: ALB/GLOB Ratio 0.4 RATIO (0.9-2.4); AST(SGOT) 29 U/L (15-37); Alanine Aminotransfer ALT/SGPT 14 U/L (13-56); Albumin, Serum 1.6 g/dL (3.2-5.0); Alkaline Phosphatase 61 U/L (45-117); Anion Gap 6 (5-15); BUN 40 mg/dL (7-18); Calcium,Total 7.9 mg/dL (8.5-10.1); Chloride 104 mmol/L (98-107); EST Glomerular Filtration Rate 20 mL/min (>60); Est Glom Filt Rate - Afr Amer 24 mL/min (>60); Estimated Creatinine Clearance 15.85 ml/min; Globulin 3.6 g/dL (2.2-4.2); Glucose 85 mg/dL (74-106); Magnesium 1.7 mg/dL (1.6-2.6); Potassium 3.2 mmol/L (3.5-5.1); Protein, Total 5.2 g/dL (6.4-8.2); Sodium Level 138 mmol/L (136-145)
[2020-04-08] MEDS: Iron Polysaccharide Complex 150 MG CAPSULE PO (09:12)
[2020-04-08] MEDS: Metoprolol(XL)Succ 50 MG Tablet PO (09:12)
[2020-04-08] MEDS: metOLazone 5 MG Tablet PO (09:12)
[2020-04-08] MEDS: Allopurinol 100 MG Tablet PO (09:14)
[2020-04-08] MEDS: Acetaminophen 325 MG Tablet 650 MG PO ×2 (09:17→17:56)
[2020-04-08] MEDS: Menthol/Lanolin/Calamine/Znox 113 GM Tube 1 APPLIC TOPICAL ×2 (09:30→21:59)
[2020-04-08 09:46] LABS: International Normalized Ratio 1.3; Partial Thromboplast Time 31.7 Seconds (24.1-36.2); Prothrombin Time (Protime)PT. 15.8 SECONDS (11.7-14.9)
--- NOTE | 2020-04-08 09:50 | PCM.PN.REN ---
Subjective: on and off melendrez no dizziness no cp/sob - Physical Exam Vitals/I&O's: Vital Signs Temp Pulse Resp BP Pulse Ox 98 F 91 16 116/55 L 92 04/08/20 08:29 04/08/20 09:12 04/08/20 08:29 04/08/20 09:12 04/08/20 08:29 Oxygen Flow Rate (L/min) 2 Oxygen Delivery Method Nasal Cannula Weight: 133 kg Body Mass Index (BMI) 52.7 Intake and Output for Last 24 Hours 04/06/20 04/07/20 04/08/20 23:59 23:59 23:59 Intake Total 880 / 880 1544.01 / 1544.01 580 / 580 Output Total 675 / 675 2160 / 2160 1500 / 1500 Balance 205 / 205 -615.99 / -615.99 -920 / -920 General: Alert, Cooperative HEENT: Atraumatic Oral: Moist Mucosa Neck: Supple Lungs: Clear to auscultation, Normal air movement Cardiovascular: Regular rate, Regular Rhythm, Normal S1, Normal S2 Abdomen: Bowel Sounds Present, Soft, Obese Extremities: No clubbing, No cyanosis, Edema Microbiology Past 72 Hours 04/07/20 15:00 Urine Catheter - Bose Urine Culture - Preliminary Culture exhibits no growth. Laboratory Results 04/07/20 05:59: Phosphorus 3.4, Total Bilirubin 2.10 H, Direct Bilirubin 0.84 H, AST 27, ALT 12 L, Alkaline Phosphatase 64, Total Protein 5.3 L, Albumin 1.7 L, Globulin 3.6 04/07/20 05:59: Phosphorus Cancelled 04/07/20 15:00: Urine Color Yellow, Urine Clarity Clear, Urine pH 6.0, Ur Specific [place] 1.010, Urine Protein Negative, Urine Glucose (UA) Normal, Urine Ketones Negative, Urine Occult Blood 25 H, Urine Nitrite Negative, Urine Bilirubin Negative, Urine Urobilinogen Normal, Ur Leukocyte Esterase Negative, Urine RBC 0 SEEN, Urine WBC 0 SEEN, Ur Squamous Epith Cells 0 SEEN, Urine Bacteria 0 SEEN, Urine Mucus 0 SEEN 04/08/20 06:21: WBC 6.7, RBC 2.45 L, Hgb 8.3 L, Hct 25.3 L, MCV 103.3 H, MCH 33.9 H, MCHC 32.8, RDW Std Deviation 65.4 H, RDW Coeff of Yuri 17.9 H, Plt Count 108 L, MPV 10.9, Immature Gran % (Auto) 0.300, Neut % (Auto) 60.0, Lymph % (Auto) 14.3 L, [place] % (Auto) 9.0, Eos % (Auto) 15.8 H, Baso % (Auto) 0.6, Absolute Neuts (auto) 4.0, Absolute Lymphs (auto) 0.96, Nucleated RBC % 0, Differential Comment SCANNED, Microcytosis RARE, Ovalocytes RARE 04/08/20 06:21: Sodium 138, Potassium 3.2 L, Chloride 104, Carbon Dioxide 28.0, Anion Gap 6, BUN 40 H, Creatinine 2.50 H, Estim Creat Clear Calc 15.85, Est GFR (MDRD) Af Amer 24 L, Est GFR (MDRD) Non-Af 20 L, BUN/Creatinine Ratio 16.0, Glucose 85, Calcium 7.9 L, Magnesium 1.7, Total Bilirubin 1.50 H, AST 29, ALT 14, Alkaline Phosphatase 61, Total Protein 5.2 L, Albumin 1.6 L, Globulin 3.6, Albumin/Globulin Ratio 0.4 L 04/08/20 09:14: PT 15.8 H, INR 1.3, APTT 31.7 Current Medications Acetaminophen (Tylenol) 650 mg PO Q6H PRN PRN PRN Reason: Pain or Fever Last Admin: 04/08/20 09:17 Dose: 650 mg Documented by: Albuterol Sulfate (Ventolin Aerosols) 2.5 mg INHALATION Q4H PRN PRN PRN Reason: SHORTNESS OF BREATH Last Admin: 04/06/20 10:34 Dose: 2.5 mg Documented by: Allopurinol (Zyloprim) 100 mg PO DAILY [facility] Last Admin: 04/08/20 09:14 Dose: 100 mg Documented by: Atorvastatin Calcium (Lipitor) 5 mg PO QHS [facility] Last Admin: 04/07/20 21:17 Dose: 5 mg Documented by: Calamine/Phenol (Calmoseptine Ointment) 1 applic TOPICAL BID [facility]; Protocol Last Admin: 04/07/20 21:18 Dose: 1 applicatio Documented by: Dextrose (D50w Syringe) 0 gm IV X1 PRN; Protocol PRN Reason: Hypoglycemia Gabapentin (Neurontin) 600 mg PO BID PRN PRN PRN Reason: Neuropathy Last Admin: 04/05/20 21:25 Dose: 300 mg Documented by: Glucagon () 1 mg IM .X1 PRN PRN Reason: Hypoglycemia Heparin Sodium (Porcine) (Heparin Na) 5,000 unit SC Q12 [facility] Last Admin: 04/08/20 09:39 Dose: Not Given Documented by: Furosemide 500 mg/ N/A 50 mls @ 2 mls/hr CONT INF .Q25H [facility] Last Admin: 04/07/20 20:25 Dose: 20 mg/hr, 2 mls/hr Documented by: Levothyroxine Sodium (Synthroid) 125 mcg PO DAILY@0600 [facility] Last Admin: 04/08/20 05:48 Dose: 125 mcg Documented by: Metolazone (Zaroxolyn) 5 mg PO DAILY [facility] Last Admin: 04/08/20 09:12 Dose: 5 mg Documented by: Metoprolol Succinate (Toprol Xl (Beta Britney)) 50 mg PO DAILY [facility] Last Admin: 04/08/20 09:12 Dose: 50 mg Documented by: Midodrine (Proamatine) 5 mg PO TID [facility] Last Admin: 04/08/20 05:48 Dose: 5 mg Documented by: Nitroglycerin (Nitrostat) 0.4 mg SUBLINGUAL Q5M PRN PRN Reason: CARDIAC/CHEST PAIN Nutritional Formula (Lactose Free) (Ensure Enlive) 120 ml PO 4X/DAY [facility] Last Admin: 04/08/20 09:39 Dose: Not Given Documented by: Pantoprazole Sodium (Protonix) 20 mg PO DAILY PRN PRN PRN Reason: HEARTBURN Polysaccharide Iron Complex (Ferrex 150) 150 mg PO DAILY [facility] Last Admin: 04/08/20 09:12 Dose: 150 mg Documented by: Sodium Chloride () 10 - 40 ml IV UD PRN PRN Reason: SALINE FLUSH Last Admin: 04/07/20 14:54 Dose: 10 ml Documented by: Medical Necessity - Tobacco Use Smoking Status: Never smoker Assessment/Plan CKD stage IV with baseline creatinine around 2.6. 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 Renal ultrasound in September 2019 showed bilateral atrophic kidneys hence a kidney biopsy was not pursued. Anasarca Congestive heart failure with elevated right-sided pressures Cirrhosis presumably Lora cirrhosis on lasix drip and metolazone. I discussed with the patient about the major risks and benefits of dialysis but she is not decided at this time if the need for dialysis arises in the future. Renal function stable Scr 2.5 consistent with baseline. Documented urine output of 1490 ml yesterday bp better continue midodrine can titrate up if needed If high volume paracentesis performed recommend albumin 8 gram/Liter avoid nephrotoxins overdiuresis
[2020-04-08 11:17] LABS: Body Fluid Mononuclear WBC # 0.018 10^3/uL; Body Fluid Mononuclear WBC % 94.7 %; Body Fluid Polynuclear WBC # 0.001 10^3/uL; Body Fluid Polynuclear WBC % 5.3 %; Body Fluid Total Cells Counted 0.022 10^3/ul; White Blood Count/Body Fluid 0.019 10^3/uL
[2020-04-08 11:59] LABS: Appearance/Body Fluid CLEAR; Auto B Fluid Analyzer BKGD Ct COUNTS W/IN LIMITS (W/IN LIMITS); Color/Body Fluid LT YEL; Red Cell Count/Body Fluid 14 /mm3; Source- Body Fluid OTHER
[2020-04-08 12:12] LABS: Glucose, Body Fluid 101 mg/dL (40-70); Protein, Body Fluid 1.3 g/dL (Not Establ.)
[2020-04-08 12:22] LABS: LDH,Body Fluid 48 Units/l (Not Establ.)
[2020-04-08] MEDS: Pantoprazole Sodium 20 MG Tablet PO (12:25)
[2020-04-08 12:30] LABS: Body Fluid QC Type(s) BF2Q; Lymphocytes 20 %; Macrophages 20 %; Monocytes 50 %; Neutrophil (Segs) 10 %
[2020-04-08] MEDS: 0.9% Saline Lock 10 ML Syringe IV ×4 (12:51→18:03)
[2020-04-08] MEDS: LORazepam 2 MG/ML Syringe 0.5 MG IV (12:52)
[2020-04-08 14:03] LABS: LDH 230 U/L (84-246)
[2020-04-08] MEDS: Albumin Human 25% (100 mL) 25 GM/100 ML BAG IV (15:06)
--- NOTE | 2020-04-08 16:09 | PCM.PN.HOSP ---
<Senthil Parker - Last Filed: 04/08/20 16:09> Reason for Visit: Pt resting comfortably in bed NAD. No SOB. Increased diuresis since yesterday. She had brannon placed yesterday for urinary retention. Ongoing abd distention. No abd pain. Agreeable to paracentesis. She later went down and had 8 liters removes. She asked for ativan for paracentesis as she was having anxiety about having it done. Vitals/I&O's: Vital Signs Temp Pulse Resp BP Pulse Ox 98.2 F 73 15 80/40 L 94 04/08/20 15:01 04/08/20 15:46 04/08/20 15:01 04/08/20 15:01 04/08/20 15:01 Oxygen Flow Rate (L/min) [6] 2 Oxygen Flow Rate (L/min) [5] 2 Oxygen Flow Rate (L/min) [4] 2 Oxygen Flow Rate (L/min) [3] 2 Oxygen Flow Rate (L/min) [2] 2 Oxygen Flow Rate (L/min) [1 ( 2 Initial Baseline)] Oxygen Flow Rate (L/min) 2 Oxygen Delivery Method [6] Nasal Cannula Oxygen Delivery Method [5] Nasal Cannula Oxygen Delivery Method [4] Nasal Cannula Oxygen Delivery Method [3] Nasal Cannula Oxygen Delivery Method [2] Nasal Cannula Oxygen Delivery Method [1 ( Nasal Cannula Initial Baseline)] Oxygen Delivery Method Nasal Cannula Weight: 293 lb 3.437 oz Body Mass Index (BMI) 52.7 Intake and Output for Last 24 Hours 04/06/20 04/07/20 04/08/20 23:59 23:59 23:59 Intake Total 880 / 880 1544.01 / 1544.01 1237.27 / 1237.27 Output Total 675 / 675 2160 / 2160 81382 / 47333 Balance 205 / 205 -615.99 / -615.99 -8962.73 / -8962.73 General: Alert, Oriented x3, Cooperative HEENT: Atraumatic, PERRLA, EOMI, Normocephalic Neck: Supple, No JVD, Negative Carotid Bruits Lungs: Clear to auscultation, Diminished Cardiovascular: Regular rate, No murmurs Abdomen: Bowel Sounds Present, Soft, Non Tender, Distended, Obese Extremities: No edema, Capillary Refill Less than 3 Seconds Skin: No rashes, No breakdown Musculoskeletal: No Tenderness to Palpation of Joints or Extremities Neurological: Cranial nerves II-XII grossly intact Psych/Mental Status: Normal Affect, Appropriate, Anxious Microbiology Past 72 Hours 04/07/20 15:00 Urine Catheter - Brannon Urine Culture - Preliminary Culture exhibits no growth. Laboratory Results 04/08/20 06:21: WBC 6.7, RBC 2.45 L, Hgb 8.3 L, Hct 25.3 L, MCV 103.3 H, MCH 33.9 H, MCHC 32.8, RDW Std Deviation 65.4 H, RDW Coeff of Yuri 17.9 H, Plt Count 108 L, MPV 10.9, Immature Gran % (Auto) 0.300, Neut % (Auto) 60.0, Lymph % (Auto) 14.3 L, [place] % (Auto) 9.0, Eos % (Auto) 15.8 H, Baso % (Auto) 0.6, Absolute Neuts (auto) 4.0, Absolute Lymphs (auto) 0.96, Nucleated RBC % 0, Differential Comment SCANNED, Microcytosis RARE, Ovalocytes RARE 04/08/20 06:21: Sodium 138, Potassium 3.2 L, Chloride 104, Carbon Dioxide 28.0, Anion Gap 6, BUN 40 H, Creatinine 2.50 H, Estim Creat Clear Calc 15.85, Est GFR (MDRD) Af Amer 24 L, Est GFR (MDRD) Non-Af 20 L, BUN/Creatinine Ratio 16.0, Glucose 85, Calcium 7.9 L, Magnesium 1.7, Total Bilirubin 1.50 H, AST 29, ALT 14, Alkaline Phosphatase 61, Total Protein 5.2 L, Albumin 1.6 L, Globulin 3.6, Albumin/Globulin Ratio 0.4 L 04/08/20 06:21: Lactate Dehydrogenase 230 04/08/20 09:14: PT 15.8 H, INR 1.3, APTT 31.7 04/08/20 10:50: Fluid Glucose 101 H, Fluid Total Protein 1.3 04/08/20 10:50: Fluid Source OTHER, Fluid Color LT YEL, Fluid Appearance CLEAR, Fluid WBC 0.019, Fluid RBC 14, Fluid Tot Cell Count 0.022 H, Fld Polynuclear WBCs # 0.001, Fld Polynuclear WBCs % 5.3, Fluid Mononuclear WBCs 0.018, Fld Mononuclear WBCs % 94.7, Fluid Neutrophils 10, Fluid Lymphocytes 20, Fluid Monocytes 50, Fluid Macrophages 20, Fl Pathologist Comment May follow, Fluid Comment 2 TNP 04/08/20 10:50: Miscellaneous Test Pending 04/08/20 10:52: Fluid LDH 48 Current Medications Acetaminophen (Tylenol) 650 mg PO Q6H PRN PRN PRN Reason: Pain or Fever Last Admin: 04/08/20 09:17 Dose: 650 mg Documented by: Albuterol Sulfate (Ventolin Aerosols) 2.5 mg INHALATION Q4H PRN PRN PRN Reason: SHORTNESS OF BREATH Last Admin: 04/06/20 10:34 Dose: 2.5 mg Documented by: Allopurinol (Zyloprim) 100 mg PO DAILY [facility] Last Admin: 04/08/20 09:14 Dose: 100 mg Documented by: Atorvastatin Calcium (Lipitor) 5 mg PO QHS [facility] Last Admin: 04/07/20 21:17 Dose: 5 mg Documented by: Calamine/Phenol (Calmoseptine Ointment) 1 applic TOPICAL BID [facility]; Protocol Last Admin: 04/08/20 09:30 Dose: 1 applicatio Documented by: Calcium Carbonate (Tums) 500 mg PO Q6H PRN PRN PRN Reason: HEARTBURN Dextrose (D50w Syringe) 0 gm IV X1 PRN; Protocol PRN Reason: Hypoglycemia Gabapentin (Neurontin) 600 mg PO BID PRN PRN PRN Reason: Neuropathy Last Admin: 04/05/20 21:25 Dose: 300 mg Documented by: Glucagon () 1 mg IM .X1 PRN PRN Reason: Hypoglycemia Heparin Sodium (Porcine) (Heparin Na) 5,000 unit SC Q12 [facility] Last Admin: 04/08/20 09:39 Dose: Not Given Documented by: Furosemide 500 mg/ N/A 50 mls @ 2 mls/hr CONT INF .Q25H [facility] Last Infusion: 04/08/20 15:03 Dose: 0 mg/hr, 0 mls/hr Documented by: Levothyroxine Sodium (Synthroid) 125 mcg PO DAILY@0600 [facility] Last Admin: 04/08/20 05:48 Dose: 125 mcg Documented by: Metolazone (Zaroxolyn) 5 mg PO DAILY [facility] Last Admin: 04/08/20 09:12 Dose: 5 mg Documented by: Metoprolol Succinate (Toprol Xl (Beta Britney)) 50 mg PO DAILY [facility] Last Admin: 04/08/20 09:12 Dose: 50 mg Documented by: Midodrine (Proamatine) 5 mg PO TID [facility] Last Admin: 04/08/20 15:15 Dose: 5 mg Documented by: Nitroglycerin (Nitrostat) 0.4 mg SUBLINGUAL Q5M PRN PRN Reason: CARDIAC/CHEST PAIN Nutritional Formula (Lactose Free) (Ensure Clear) 120 ml PO 4X/DAY [facility] Last Admin: 04/08/20 15:00 Dose: Not Given Documented by: Pantoprazole Sodium (Protonix) 20 mg PO DAILY PRN PRN PRN Reason: HEARTBURN Last Admin: 04/08/20 12:25 Dose: 20 mg Documented by: Polysaccharide Iron Complex (Ferrex 150) 150 mg PO DAILY [facility] Last Admin: 04/08/20 09:12 Dose: 150 mg Documented by: Sodium Chloride () 10 - 40 ml IV UD PRN PRN Reason: SALINE FLUSH Last Admin: 04/08/20 15:06 Dose: 10 ml Documented by: Tamsulosin HCl (Flomax) 0.4 mg PO DAILY@1730 [facility] STROKE Vital Signs/Narrative: Vital Signs Temp Pulse Resp BP Pulse Ox 04/08/20 15:46 73 04/08/20 15:01 98.2 F 71 15 80/40 L 94 Medical Necessity - Tobacco Use Smoking Status: Never smoker Assessment/Plan 1. 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 Mildly elevated BNP. -8100 cc removed paracentesis, fluid sent. -25 g albumin given. -Lasix held post paracentesis for hypotension -Brannon placed for urinary retention. -TSH nl. -CXR with diminished lungs, atelectasis vs infiltrate BL bases. No fever/leukocytosis 2. Macrocytic anemia - prior studies without clear etiology. will trend. s/p 1 unit prbc. continue ferrex. 3. Thrombocytopenia suspect 2/2 cirrhosis - will trend. 4. CKDIV - trend. nephrology following. stable. 5. hypotension - midodrine started. metoprolol held this AM for systolic <105. Lasix held for hypotension for para 6. Hypomagnesemia - repleted. 7. 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 hold heparin with thrombocytopenia DC planning: monitor overnight with borderline pressures. This patient was seen by Senthil Parker PA-C under the supervision of Dr. Christie. <Tien Christie E - Last Filed: 04/08/20 17:10> Vitals/I&O's: Vital Signs Temp Pulse Resp BP Pulse Ox 98.3 F 65 15 89/43 L 96 04/08/20 16:13 04/08/20 16:13 04/08/20 16:13 04/08/20 16:13 04/08/20 16:13 Oxygen Flow Rate (L/min) [6] 2 Oxygen Flow Rate (L/min) [5] 2 Oxygen Flow Rate (L/min) [4] 2 Oxygen Flow Rate (L/min) [3] 2 Oxygen Flow Rate (L/min) [2] 2 Oxygen Flow Rate (L/min) [1 ( 2 Initial Baseline)] Oxygen Flow Rate (L/min) 2 Oxygen Delivery Method [6] Nasal Cannula Oxygen Delivery Method [5] Nasal Cannula Oxygen Delivery Method [4] Nasal Cannula Oxygen Delivery Method [3] Nasal Cannula Oxygen Delivery Method [2] Nasal Cannula Oxygen Delivery Method [1 ( Nasal Cannula Initial Baseline)] Oxygen Delivery Method Nasal Cannula Weight: 293 lb 3.437 oz Body Mass Index (BMI) 52.7 Intake and Output for Last 24 Hours 04/06/20 04/07/20 04/08/20 23:59 23:59 23:59 Intake Total 880 / 880 1544.01 / 1544.01 1437.27 / 1437.27 Output Total 675 / 675 2160 / 2160 78395 / 18570 Balance 205 / 205 -615.99 / -615.99 -9312.73 / -9312.73 Microbiology Past 72 Hours 04/07/20 15:00 Urine Catheter - Brannon Urine Culture - Preliminary Culture exhibits no growth. Laboratory Results 04/08/20 06:21: WBC 6.7, RBC 2.45 L, Hgb 8.3 L, Hct 25.3 L, MCV 103.3 H, MCH 33.9 H, MCHC 32.8, RDW Std Deviation 65.4 H, RDW Coeff of Yuri 17.9 H, Plt Count 108 L, MPV 10.9, Immature Gran % (Auto) 0.300, Neut % (Auto) 60.0, Lymph % (Auto) 14.3 L, [place] % (Auto) 9.0, Eos % (Auto) 15.8 H, Baso % (Auto) 0.6, Absolute Neuts (auto) 4.0, Absolute Lymphs (auto) 0.96, Nucleated RBC % 0, Differential Comment SCANNED, Microcytosis RARE, Ovalocytes RARE 04/08/20 06:21: Sodium 138, Potassium 3.2 L, Chloride 104, Carbon Dioxide 28.0, Anion Gap 6, BUN 40 H, Creatinine 2.50 H, Estim Creat Clear Calc 15.85, Est GFR (MDRD) Af Amer 24 L, Est GFR (MDRD) Non-Af 20 L, BUN/Creatinine Ratio 16.0, Glucose 85, Calcium 7.9 L, Magnesium 1.7, Total Bilirubin 1.50 H, AST 29, ALT 14, Alkaline Phosphatase 61, Total Protein 5.2 L, Albumin 1.6 L, Globulin 3.6, Albumin/Globulin Ratio 0.4 L 04/08/20 06:21: Lactate Dehydrogenase 230 04/08/20 09:14: PT 15.8 H, INR 1.3, APTT 31.7 04/08/20 10:50: Fluid Glucose 101 H, Fluid Total Protein 1.3 04/08/20 10:50: Fluid Source OTHER, Fluid Color LT YEL, Fluid Appearance CLEAR, Fluid WBC 0.019, Fluid RBC 14, Fluid Tot Cell Count 0.022 H, Fld Polynuclear WBCs # 0.001, Fld Polynuclear WBCs % 5.3, Fluid Mononuclear WBCs 0.018, Fld Mononuclear WBCs % 94.7, Fluid Neutrophils 10, Fluid Lymphocytes 20, Fluid Monocytes 50, Fluid Macrophages 20, Fl Pathologist Comment May follow, Fluid Comment 2 TNP 04/08/20 10:50: Miscellaneous Test Pending 04/08/20 10:52: Fluid LDH 48 Current Medications Acetaminophen (Tylenol) 650 mg PO Q6H PRN PRN PRN Reason: Pain or Fever Last Admin: 04/08/20 09:17 Dose: 650 mg Documented by: Albuterol Sulfate (Ventolin Aerosols) 2.5 mg INHALATION Q4H PRN PRN PRN Reason: SHORTNESS OF BREATH Last Admin: 04/06/20 10:34 Dose: 2.5 mg Documented by: Allopurinol (Zyloprim) 100 mg PO DAILY [facility] Last Admin: 04/08/20 09:14 Dose: 100 mg Documented by: Atorvastatin Calcium (Lipitor) 5 mg PO QHS [facility] Last Admin: 04/07/20 21:17 Dose: 5 mg Documented by: Calamine/Phenol (Calmoseptine Ointment) 1 applic TOPICAL BID [facility]; Protocol Last Admin: 04/08/20 09:30 Dose: 1 applicatio Documented by: Calcium Carbonate (Tums) 500 mg PO Q6H PRN PRN PRN Reason: HEARTBURN Dextrose (D50w Syringe) 0 gm IV X1 PRN; Protocol PRN Reason: Hypoglycemia Gabapentin (Neurontin) 600 mg PO BID PRN PRN PRN Reason: Neuropathy Last Admin: 04/05/20 21:25 Dose: 300 mg Documented by: Glucagon () 1 mg IM .X1 PRN PRN Reason: Hypoglycemia Heparin Sodium (Porcine) (Heparin Na) 5,000 unit SC Q12 [facility] Last Admin: 04/08/20 09:39 Dose: Not Given Documented by: Furosemide 500 mg/ N/A 50 mls @ 2 mls/hr CONT INF .Q25H [facility] Last Infusion: 04/08/20 15:03 Dose: 0 mg/hr, 0 mls/hr Documented by: Levothyroxine Sodium (Synthroid) 125 mcg PO DAILY@0600 [facility] Last Admin: 04/08/20 05:48 Dose: 125 mcg Documented by: Metolazone (Zaroxolyn) 5 mg PO DAILY [facility] Last Admin: 04/08/20 09:12 Dose: 5 mg Documented by: Metoprolol Succinate (Toprol Xl (Beta Britney)) 50 mg PO DAILY [facility] Last Admin: 04/08/20 09:12 Dose: 50 mg Documented by: Midodrine (Proamatine) 5 mg PO TID [facility] Last Admin: 04/08/20 15:15 Dose: 5 mg Documented by: Nitroglycerin (Nitrostat) 0.4 mg SUBLINGUAL Q5M PRN PRN Reason: CARDIAC/CHEST PAIN Nutritional Formula (Lactose Free) (Ensure Clear) 120 ml PO 4X/DAY [facility] Last Admin: 04/08/20 15:00 Dose: Not Given Documented by: Pantoprazole Sodium (Protonix) 20 mg PO DAILY PRN PRN PRN Reason: HEARTBURN Last Admin: 04/08/20 12:25 Dose: 20 mg Documented by: Polysaccharide Iron Complex (Ferrex 150) 150 mg PO DAILY [facility] Last Admin: 04/08/20 09:12 Dose: 150 mg Documented by: Sodium Chloride () 10 - 40 ml IV UD PRN PRN Reason: SALINE FLUSH Last Admin: 04/08/20 15:06 Dose: 10 ml Documented by: Tamsulosin HCl (Flomax) 0.4 mg PO DAILY@1730 [facility] STROKE Vital Signs/Narrative: Vital Signs Temp Pulse Resp BP Pulse Ox 04/08/20 16:13 98.3 F 65 15 89/43 L 96 04/08/20 15:46 73 04/08/20 15:01 98.2 F 71 15 80/40 L 94 Assessment/Plan Hospitalist note: I am seeing this patient in conjunction with Senthil Parker. I independently seen and examined the patient. Progress note above, laboratory data and imaging studies reviewed and I concur with above treatment plan. Today, patient mentioned that her shortness of breath and abdominal distention remain the same. Denied abdominal pain. I informed the patient that she has large amount of ascites on ultrasound abdomen. She agreed to paracentesis which was done and more than 8 L of fluids removed. Blood pressure is borderline, remained on 2 L of oxygen. - Physical Exam General: Alert, Oriented x3, Cooperative, no significant apparent distress. HEENT: Atraumatic, PERRLA, EOMI. Neck: Supple, No JVD, Negative Carotid Bruits, Trachea Midline, Thyroid Normal. Lungs: Diminished breath sounds at the bases, bilateral faint basilar crackles, No rhonchi, No wheeze. Cardiovascular: Regular rate, Regular Rhythm, Normal S1, Normal S2, PMI Normal. Abdomen: Bowel Sounds Present, Soft, Non Tender, Non-Distended, No Hepato-splenomegaly, ascites. Extremities: No clubbing, No cyanosis, ++ edema Skin: No rashes, No breakdown Neurological: Cranial nerves are intact, neuro grossly intact Vital Signs are stable. Assessment and plan: #1 acute diastolic CHF with preserved ejection fraction: Remained on IV Lasix drip and metolazone. She is on midodrine because of low blood pressure. She had good urine output. She does have history of stage IV chronic kidney disease. She is not on GANGA inhibitor because of chronic kidney disease. 2D echocardiogram revealed ejection fraction 55%, moderately dilated right ventricle, RVSP of 30. EKG revealed no acute ischemic changes. Troponin is negative x3. Nephrology on the case, kidney function has been improving very slowly. Plan for paracentesis today. #2 acute on chronic anemia: Baseline hemoglobin has been around 9 to 11 g/dL over the last year. Received 1 unit of packed RBCs yesterday. Today's hemoglobin is 8.3 g/dL, plan to keep hemoglobin above 8 g/dL. Patient denies any active bleeding. #4 ascites: Large amount, status post paracentesis, 8 L taken out. Ascitic fluid analysis reviewed, ascitic fluid echo is pending. #2 hypoxia: Secondary to #1. Remained on 2 L. Plan to continue IV diuresis, albuterol PRN, oxygen to keep O2 saturation more than 92%. #3 stage IV chronic kidney disease: Kidney function has been followed with IV diuresis. Renal ultrasound revealed mild atrophy of the right kidney, left kidney was not visualized which could be because of the large amount of ascites. Nephrology on the case. Plan to continue IV Lasix drip, repeat BMP tomorrow morning. #4 other chronic medical problems: Stable, continue current medications as above. This note was generated with [employer] dictation software. It may contain incorrect words, spelling, and punctuation that were not noted in checking the note before signing. Inpatient E&M: 53186 Subs Hosp L2
[2020-04-08] MEDS: Tamsulosin HCl 0.4 MG Capsule PO (17:54)
[2020-04-08] MEDS: Heparin Injection (Vial) 5,000 UNIT/ML VIAL 5000 UNIT SC (22:00)
[2020-04-08] MEDS: Atorvastatin Calcium 10 MG Tablet 5 MG PO (22:01)
[2020-04-09] VITALS (17 sets, daily range): BP systolic 84–112; BP diastolic 42–53; PULSE 61–72; RESP 16–18; TEMP 36.5–37.2; O2SAT 92–95
[2020-04-09 05:52] LABS: Absolute Neutrophil Count 2.7 X10^3/uL (2.0-7.7); Basophil# 0.03 X10^3/uL; Basophil% 0.6 % (0-1); Eosinophil# 0.81 X10^3/uL; Eosinophils% 16.8 % (0-5); Hematocrit 25.2 % (37-47); Hemoglobin 8.2 g/dL (12.0-15.0); Lymphocyte % 18.6 % (19-41); Mean Corp Hgb Conc 32.5 g/dL (32-36); Mean Corpuscular Volume 104.6 fL (81-99); Mean Platelet Vol. 10.1 fl (6.2-12.0); Monocyte% 8.3 % (0-10); NRBC Flagged by Analyzer 0 % (0-5); Neutrophil # 2.67 X10^3/uL (2.7-7.7); Neutrophil % 55.3 % (47-70); POSITIVE COUNT YES; POSITIVE MORPHOLOGY YES; Platelet Count 85 K/mm3 (150-450); RBC Distribution Width CV 18.1 % (11.6-14.6); RBC Distribution Width SD 67.2 fl (35.1-43.9); Red Blood Count 2.41 M/mm3 (4.2-5.4); White Blood Count 4.8 K/mm3 (4.4-11.0)
[2020-04-09 05:53] LABS: Differential Indicated SCAN CRITERIA MET
[2020-04-09] MEDS: Levothyroxine 125 MCG Tablet PO (05:54)
[2020-04-09] MEDS: Midodrine HCl 5 MG Tablet PO ×3 (05:54→22:00)
[2020-04-09 06:06] LABS: Anion Gap 5 (5-15); BUN 42 mg/dL (7-18); BUN/Creat Ratio 17.3 RATIO (10-20); Calcium,Total 7.8 mg/dL (8.5-10.1); Chloride 101 mmol/L (98-107); Creatinine, Serum 2.43 mg/dL (0.55-1.02); EST Glomerular Filtration Rate 21 mL/min (>60); Est Glom Filt Rate - Afr Amer 25 mL/min (>60); Estimated Creatinine Clearance 16.31 ml/min; Glucose 85 mg/dL (74-106); Potassium 3.1 mmol/L (3.5-5.1); Sodium Level 137 mmol/L (136-145)
[2020-04-09 06:27] LABS: Anisocytosis 1+; Hypochromasia 1+; Macrocytosis 1+; Platelet Estimate MOD DEC (ADEQ); Red Cell Morphology N CHROM NORMAL (NORM C&C)
[2020-04-09 07:15] LABS: Magnesium 1.7 mg/dL (1.6-2.6)
[2020-04-09] MEDS: Pantoprazole Sodium 20 MG Tablet PO (08:33)
[2020-04-09] MEDS: Allopurinol 100 MG Tablet PO (09:07)
[2020-04-09] MEDS: Menthol/Lanolin/Calamine/Znox 113 GM Tube 1 APPLIC TOPICAL ×2 (09:07→21:59)
[2020-04-09] MEDS: metOLazone 5 MG Tablet PO (09:07)
[2020-04-09] MEDS: Iron Polysaccharide Complex 150 MG CAPSULE PO (09:08)
[2020-04-09] MEDS: Heparin Injection (Vial) 5,000 UNIT/ML VIAL 5000 UNIT SC (09:08)
[2020-04-09] MEDS: Metoprolol(XL)Succ 25 MG Tablet PO (09:10)
--- NOTE | 2020-04-09 10:57 | PN_ITS ---
<Senthil Parker - Last Filed: 04/09/20 10:57> Reason for Visit: ascites Subjective: Pt had 8L removed from abdomen yesterday. She complains of sore abdomen following the procedure. She primarily complains of being weak and tired today. She has been refusing to get out of bed or walk. She has no chest pain or SOB. She continues to use a small amount of oxygen, baseline is none. Vitals/I&O's: Vital Signs Temp Pulse Resp BP Pulse Ox 97.7 F L 69 18 111/47 L 93 04/09/20 08:34 04/09/20 09:10 04/09/20 08:34 04/09/20 09:10 04/09/20 08:34 Oxygen Flow Rate (L/min) [6] 2 Oxygen Flow Rate (L/min) [5] 2 Oxygen Flow Rate (L/min) [4] 2 Oxygen Flow Rate (L/min) [3] 2 Oxygen Flow Rate (L/min) [2] 2 Oxygen Flow Rate (L/min) [1 ( 2 Initial Baseline)] Oxygen Flow Rate (L/min) 1 Oxygen Delivery Method [6] Nasal Cannula Oxygen Delivery Method [5] Nasal Cannula Oxygen Delivery Method [4] Nasal Cannula Oxygen Delivery Method [3] Nasal Cannula Oxygen Delivery Method [2] Nasal Cannula Oxygen Delivery Method [1 ( Nasal Cannula Initial Baseline)] Oxygen Delivery Method Nasal Cannula Weight: 269 lb 10.005 oz Body Mass Index (BMI) 52.7 Intake and Output for Last 24 Hours 04/07/20 04/08/20 04/09/20 23:59 23:59 23:59 Intake Total 1544.01 / 1544.01 1757.27 / 1757.27 75 / 75 Output Total 2160 / 2160 25716 / 77520 400 / 400 Balance -615.99 / -615.99 -12651.73 / -95614.73 -325 / -325 General: Alert, Oriented x3, Cooperative HEENT: Atraumatic, PERRLA, EOMI, Normocephalic Neck: Supple, No JVD, Negative Carotid Bruits Lungs: Clear to auscultation, Normal air movement Cardiovascular: Regular rate, No murmurs Abdomen: Bowel Sounds Present, Soft, Non Tender Extremities: No edema, Capillary Refill Less than 3 Seconds Skin: No rashes, No breakdown Musculoskeletal: No Tenderness to Palpation of Joints or Extremities Neurological: Cranial nerves II-XII grossly intact Psych/Mental Status: Normal Affect, Appropriate, Alert and oriented to time, place, person, mood and affect Microbiology Past 72 Hours 04/07/20 15:00 Urine Catheter - Brannon Urine Culture - Final Culture exhibits no growth. Laboratory Results 04/08/20 06:21: Lactate Dehydrogenase 230 04/08/20 10:50: Fluid Glucose 101 H, Fluid Total Protein 1.3 04/08/20 10:50: Fluid Source OTHER, Fluid Color LT YEL, Fluid Appearance CLEAR, Fluid WBC 0.019, Fluid RBC 14, Fluid Tot Cell Count 0.022 H, Fld Polynuclear WBCs # 0.001, Fld Polynuclear WBCs % 5.3, Fluid Mononuclear WBCs 0.018, Fld Mononuclear WBCs % 94.7, Fluid Neutrophils 10, Fluid Lymphocytes 20, Fluid Monocytes 50, Fluid Macrophages 20, Fl Pathologist Comment May follow, Fluid Comment 2 TNP 04/08/20 10:50: Miscellaneous Test Pending 04/08/20 10:52: Fluid LDH 48 04/09/20 05:40: WBC 4.8, RBC 2.41 L, Hgb 8.2 L, Hct 25.2 L, MCV 104.6 H, MCH 34.0 H, MCHC 32.5, RDW Std Deviation 67.2 H, RDW Coeff of Yuri 18.1 H, Plt Count 85 L, MPV 10.1, Immature Gran % (Auto) 0.400, Neut % (Auto) 55.3, Lymph % (Auto) 18.6 L, [place] % (Auto) 8.3, Eos % (Auto) 16.8 H, Baso % (Auto) 0.6, Absolute Neuts (auto) 2.7, Absolute Lymphs (auto) 0.90, Nucleated RBC % 0, Platelet Estimate MOD DEC, RBC Morphology N CHROM, Hypochromasia 1+, Anisocytosis 1+, Macrocytosis 1+ 04/09/20 05:40: Sodium 137, Potassium 3.1 L, Chloride 101, Carbon Dioxide 31.0, Anion Gap 5, BUN 42 H, Creatinine 2.43 H, Estim Creat Clear Calc 16.31, Est GFR (MDRD) Af Amer 25 L, Est GFR (MDRD) Non-Af 21 L, BUN/Creatinine Ratio 17.3, Glucose 85, Calcium 7.8 L 04/09/20 05:40: Magnesium 1.7 Current Medications Acetaminophen (Tylenol) 650 mg PO Q6H PRN PRN PRN Reason: Pain or Fever Last Admin: 04/08/20 17:56 Dose: 650 mg Documented by: Albuterol Sulfate (Ventolin Aerosols) 2.5 mg INHALATION Q4H PRN PRN PRN Reason: SHORTNESS OF BREATH Last Admin: 04/06/20 10:34 Dose: 2.5 mg Documented by: Allopurinol (Zyloprim) 100 mg PO DAILY REPLACED BY [facility] Last Admin: 04/09/20 09:07 Dose: 100 mg Documented by: Atorvastatin Calcium (Lipitor) 5 mg PO QHS REPLACED BY [facility] Last Admin: 04/08/20 22:01 Dose: 5 mg Documented by: Calamine/Phenol (Calmoseptine Ointment) 1 applic TOPICAL BID REPLACED BY [facility]; Protocol Last Admin: 04/09/20 09:07 Dose: 1 applicatio Documented by: Calcium Carbonate (Tums) 500 mg PO Q6H PRN PRN PRN Reason: HEARTBURN Dextrose (D50w Syringe) 0 gm IV X1 PRN; Protocol PRN Reason: Hypoglycemia Gabapentin (Neurontin) 600 mg PO BID PRN PRN PRN Reason: Neuropathy Last Admin: 04/05/20 21:25 Dose: 300 mg Documented by: Glucagon () 1 mg IM .X1 PRN PRN Reason: Hypoglycemia Heparin Sodium (Porcine) (Heparin Na) 5,000 unit SC Q12 REPLACED BY [facility] Last Admin: 04/09/20 09:08 Dose: 5,000 unit Documented by: Furosemide 500 mg/ N/A 50 mls @ 2 mls/hr CONT INF .Q25H REPLACED BY [facility] Last Infusion: 04/08/20 15:03 Dose: 0 mg/hr, 0 mls/hr Documented by: Magnesium Sulfate 2 gm/ Sodium (Chloride) 104 mls @ 52 mls/hr IV X1 ONE Stop: 04/09/20 10:59 Last Admin: 04/09/20 10:10 Dose: 52 mls/hr Documented by: Levothyroxine Sodium (Synthroid) 125 mcg PO DAILY@0600 REPLACED BY [facility] Last Admin: 04/09/20 05:54 Dose: 125 mcg Documented by: Metolazone (Zaroxolyn) 5 mg PO DAILY REPLACED BY [facility] Last Admin: 04/09/20 09:07 Dose: 5 mg Documented by: Metoprolol Succinate (Toprol Xl (Beta Britney)) 25 mg PO DAILY REPLACED BY [facility] Midodrine (Proamatine) 5 mg PO TID REPLACED BY [facility] Last Admin: 04/09/20 05:54 Dose: 5 mg Documented by: Nitroglycerin (Nitrostat) 0.4 mg SUBLINGUAL Q5M PRN PRN Reason: CARDIAC/CHEST PAIN Nutritional Formula (Lactose Free) (Ensure Clear) 120 ml PO 4X/DAY REPLACED BY [facility] Last Admin: 04/09/20 09:07 Dose: Not Given Documented by: Pantoprazole Sodium (Protonix) 20 mg PO DAILY PRN PRN PRN Reason: HEARTBURN Last Admin: 04/09/20 08:33 Dose: 20 mg Documented by: Polysaccharide Iron Complex (Ferrex 150) 150 mg PO DAILY REPLACED BY [facility] Last Admin: 04/09/20 09:08 Dose: 150 mg Documented by: Potassium Chloride (K-Dur) 20 meq PO BIDCM REPLACED BY [facility] Sodium Chloride () 10 - 40 ml IV UD PRN PRN Reason: SALINE FLUSH Last Admin: 04/08/20 18:03 Dose: 10 ml Documented by: Tamsulosin HCl (Flomax) 0.4 mg PO DAILY@1730 REPLACED BY [facility] Last Admin: 04/08/20 17:54 Dose: 0.4 mg Documented by: STROKE Vital Signs/Narrative: Vital Signs Temp Pulse Resp BP Pulse Ox 04/09/20 09:10 69 111/47 L 04/09/20 08:34 97.7 F L 69 18 111/47 L 93 04/09/20 07:00 94 Medical Necessity - Tobacco Use Smoking Status: Never smoker Assessment/Plan 1. 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 Mildly elevated BNP. -8100 cc removed paracentesis -ascitic fluid albumin, SAAG score, pending. -25 g albumin given post paracentesis -Lasix drip continued, had good urinary output yesterday -Brannon placed for urinary retention: Voiding trial today -wean o2 to off if possible, then walking pulse ox. -TSH nl. -CXR with diminished lungs, atelectasis vs infiltrate BL bases. No fever/leukocytosis 2. Macrocytic anemia - Remains stable. prior studies without clear etiology. will trend. s/p 1 unit prbc. continue ferrex. 3. Thrombocytopenia suspect 2/2 cirrhosis - will trend. 4. CKDIV - trend. nephrology following. stable. 5. hypotension - midodrine started, metoprolol decreased. 6. Hypomagnesemia, Hypokalemia - replete again, replete K, recheck phos 7. 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 Urinary retention - brannon out and voiding trial today, continue flomax. 9. Debility - pt refused to walk today, encouraged ambulation with PTOT. Pt has HHC services DVT ppx: SCDs. hold heparin with thrombocytopenia DC planning: likely resumption of HHC at dc likely needs more aggressive PT but pt refusing to ambulate. Lives with who she states is in good held. This patient was seen by Senthil Parker PA-C under the supervision of Dr. Christie. <Tien Christie E - Last Filed: 04/09/20 15:32> Vitals/I&O's: Vital Signs Temp Pulse Resp BP Pulse Ox 98.4 F 66 18 102/47 L 93 04/09/20 14:34 04/09/20 14:34 04/09/20 14:34 04/09/20 14:34 04/09/20 14:34 Oxygen Flow Rate (L/min) [6] 2 Oxygen Flow Rate (L/min) [5] 2 Oxygen Flow Rate (L/min) [4] 2 Oxygen Flow Rate (L/min) [3] 2 Oxygen Flow Rate (L/min) [2] 2 Oxygen Flow Rate (L/min) [1 ( 2 Initial Baseline)] Oxygen Flow Rate (L/min) 1 Oxygen Delivery Method [6] Nasal Cannula Oxygen Delivery Method [5] Nasal Cannula Oxygen Delivery Method [4] Nasal Cannula Oxygen Delivery Method [3] Nasal Cannula Oxygen Delivery Method [2] Nasal Cannula Oxygen Delivery Method [1 ( Nasal Cannula Initial Baseline)] Oxygen Delivery Method Room Air Weight: 269 lb 10.005 oz Body Mass Index (BMI) 52.7 Intake and Output for Last 24 Hours 04/07/20 04/08/20 04/09/20 23:59 23:59 23:59 Intake Total 1544.01 / 1544.01 1757.27 / 1757.27 1139 / 1139 Output Total 2160 / 2160 11858 / 80761 825 / 825 Balance -615.99 / -615.99 -34186.73 / -85181.73 314 / 314 Microbiology Past 72 Hours 04/07/20 15:00 Urine Catheter - Brannon Urine Culture - Final Culture exhibits no growth. Laboratory Results 04/08/20 10:50: Miscellaneous Test Pending 04/09/20 05:40: WBC 4.8, RBC 2.41 L, Hgb 8.2 L, Hct 25.2 L, MCV 104.6 H, MCH 34.0 H, MCHC 32.5, RDW Std Deviation 67.2 H, RDW Coeff of Yuri 18.1 H, Plt Count 85 L, MPV 10.1, Immature Gran % (Auto) 0.400, Neut % (Auto) 55.3, Lymph % (Auto) 18.6 L, [place] % (Auto) 8.3, Eos % (Auto) 16.8 H, Baso % (Auto) 0.6, Absolute Neuts (auto) 2.7, Absolute Lymphs (auto) 0.90, Nucleated RBC % 0, Platelet Estimate MOD DEC, RBC Morphology N CHROM, Hypochromasia 1+, Anisocytosis 1+, Macrocytosis 1+ 04/09/20 05:40: Sodium 137, Potassium 3.1 L, Chloride 101, Carbon Dioxide 31.0, Anion Gap 5, BUN 42 H, Creatinine 2.43 H, Estim Creat Clear Calc 16.31, Est GFR (MDRD) Af Amer 25 L, Est GFR (MDRD) Non-Af 21 L, BUN/Creatinine Ratio 17.3, Glucose 85, Calcium 7.8 L 04/09/20 05:40: Magnesium 1.7 04/09/20 05:40: Phosphorus 3.0 Current Medications Acetaminophen (Tylenol) 650 mg PO Q6H PRN PRN PRN Reason: Pain or Fever Last Admin: 04/09/20 14:26 Dose: 650 mg Documented by: Albuterol Sulfate (Ventolin Aerosols) 2.5 mg INHALATION Q4H PRN PRN PRN Reason: SHORTNESS OF BREATH Last Admin: 04/06/20 10:34 Dose: 2.5 mg Documented by: Allopurinol (Zyloprim) 100 mg PO DAILY REPLACED BY [facility] Last Admin: 04/09/20 09:07 Dose: 100 mg Documented by: Atorvastatin Calcium (Lipitor) 5 mg PO QHS REPLACED BY [facility] Last Admin: 04/08/20 22:01 Dose: 5 mg Documented by: Calamine/Phenol (Calmoseptine Ointment) 1 applic TOPICAL BID REPLACED BY [facility]; Protocol Last Admin: 04/09/20 09:07 Dose: 1 applicatio Documented by: Calcium Carbonate (Tums) 500 mg PO Q6H PRN PRN PRN Reason: HEARTBURN Dextrose (D50w Syringe) 0 gm IV X1 PRN; Protocol PRN Reason: Hypoglycemia Gabapentin (Neurontin) 600 mg PO BID PRN PRN PRN Reason: Neuropathy Last Admin: 04/05/20 21:25 Dose: 300 mg Documented by: Glucagon () 1 mg IM .X1 PRN PRN Reason: Hypoglycemia Furosemide 500 mg/ N/A 50 mls @ 2 mls/hr CONT INF .Q25H REPLACED BY [facility] Last Infusion: 04/08/20 15:03 Dose: 0 mg/hr, 0 mls/hr Documented by: Levothyroxine Sodium (Synthroid) 125 mcg PO DAILY@0600 REPLACED BY [facility] Last Admin: 04/09/20 05:54 Dose: 125 mcg Documented by: Metolazone (Zaroxolyn) 5 mg PO DAILY REPLACED BY [facility] Last Admin: 04/09/20 09:07 Dose: 5 mg Documented by: Metoprolol Succinate (Toprol Xl (Beta Britney)) 25 mg PO DAILY REPLACED BY [facility] Midodrine (Proamatine) 5 mg PO TID REPLACED BY [facility] Last Admin: 04/09/20 14:08 Dose: 5 mg Documented by: Nitroglycerin (Nitrostat) 0.4 mg SUBLINGUAL Q5M PRN PRN Reason: CARDIAC/CHEST PAIN Nutritional Formula (Lactose Free) (Ensure Clear) 120 ml PO 4X/DAY REPLACED BY [facility] Last Admin: 04/09/20 14:04 Dose: Not Given Documented by: Pantoprazole Sodium (Protonix) 20 mg PO DAILY PRN PRN PRN Reason: HEARTBURN Last Admin: 04/09/20 08:33 Dose: 20 mg Documented by: Polysaccharide Iron Complex (Ferrex 150) 150 mg PO DAILY [facility] Last Admin: 04/09/20 09:08 Dose: 150 mg Documented by: Potassium Chloride (K-Dur) 20 meq PO BIDCM REPLACED BY [facility] Sodium Chloride () 10 - 40 ml IV UD PRN PRN Reason: SALINE FLUSH Last Admin: 04/08/20 18:03 Dose: 10 ml Documented by: Tamsulosin HCl (Flomax) 0.4 mg PO DAILY@1730 [facility] Last Admin: 04/08/20 17:54 Dose: 0.4 mg Documented by: STROKE Vital Signs/Narrative: Vital Signs Temp Pulse Resp BP Pulse Ox 04/09/20 14:34 98.4 F 66 18 102/47 L 93 Assessment/Plan Hospitalist note: I am seeing this patient in conjunction with Senthil Parker. I independently seen and examined the patient. Progress note above, laboratory data and imaging studies reviewed and I concur with above treatment plan. She is status post paracentesis, 8 L of ascitic fluid removed. She complains of abdominal soreness, no pain. She complained of weakness, denied worsening shortness of breath and she has been on some amount of oxygen. Denied chest pain or palpitation. Her blood pressure has been borderline but improved this morning, other vital signs are stable. - Physical Exam General: Alert, Oriented x3, Cooperative, no significant apparent distress. HEENT: Atraumatic, PERRLA, EOMI. Neck: Supple, No JVD, Negative Carotid Bruits, Trachea Midline, Thyroid Normal. Lungs: Diminished breath sounds at the bases, bilateral faint basilar crackles, No rhonchi, No wheeze. Cardiovascular: Regular rate, Regular Rhythm, Normal S1, Normal S2, PMI Normal. Abdomen: Bowel Sounds Present, Soft, Non Tender, Non-Distended, No Hepato- splenomegaly, ascites. Extremities: No clubbing, No cyanosis, + edema Skin: No rashes, No breakdown Neurological: Cranial nerves are intact, neuro grossly intact Vital Signs are stable. Assessment and plan: #1 acute diastolic CHF with preserved ejection fraction: Remained on IV Lasix drip and metolazone, and midodrine for low blood pressure. She has a good urine output. Kidney function continued to improve very slowly. She does have history of stage IV chronic kidney disease. She is not on GANGA inhibitor because of chronic kidney disease. 2D echocardiogram revealed ejection fraction 55%, moderately dilated right ventricle, RVSP of 30. EKG revealed no acute ischemic changes. Troponin is negative x3. Plan to continue same treatment, awaiting nephrology recommendations. #2 acute on chronic anemia: Baseline hemoglobin has been around 9 to 11 g/dL over the last year. Received 1 unit of packed RBCs. Today's hemoglobin is 8.2 g/dL, plan to keep hemoglobin above 8 g/dL. Patient denies any active bleeding. #4 ascites: Large amount, status post paracentesis, 8 L removed. Ascitic fluid analysis reviewed, appeared to be transudative. She received IV albumin. Plan as above. #2 hypoxia: Secondary to #1. Remained on 2 L and later this morning, she was taken off oxygen and pulse ox was 93% on room air. continue IV diuresis, albuterol PRN, oxygen, if needed, to keep O2 saturation more than 92%. #3 stage IV chronic kidney disease: Kidney function has been improving very slowly. Renal ultrasound revealed mild atrophy of the right kidney, left kidney was not visualized which could be because of the large amount of ascites. Nephrology on the case. Continue same treatment. #4 other chronic medical problems: Stable, continue current medications as above. This note was generated with [employer] dictation software. It may contain incorrect words, spelling, and punctuation that were not noted in checking the note before signing. Inpatient E&M: 82067 Subs Hosp L2
--- NOTE | 2020-04-09 11:40 | NURSING ---
Bose removed at this time per PA nurs communication order. Brief applied with aide assist, will monitor
[2020-04-09] MEDS: Acetaminophen 325 MG Tablet 650 MG PO (14:26)
--- NOTE | 2020-04-09 16:41 | PN.RENAL_ITS ---
Subjective: Patient is feeling tired. No worsening shortness of breath. No nausea no vomiting. She has poor appetite Patient has been off Lasix drip for 24-hour due to low blood pressure following large volume paracentesis - Physical Exam Vitals/I&O's: Vital Signs Temp Pulse Resp BP Pulse Ox 98.4 F 66 18 102/47 L 93 04/09/20 14:34 04/09/20 14:34 04/09/20 14:34 04/09/20 14:34 04/09/20 14:34 Oxygen Flow Rate (L/min) [6] 2 Oxygen Flow Rate (L/min) [5] 2 Oxygen Flow Rate (L/min) [4] 2 Oxygen Flow Rate (L/min) [3] 2 Oxygen Flow Rate (L/min) [2] 2 Oxygen Flow Rate (L/min) [1 ( 2 Initial Baseline)] Oxygen Flow Rate (L/min) 1 Oxygen Delivery Method [6] Nasal Cannula Oxygen Delivery Method [5] Nasal Cannula Oxygen Delivery Method [4] Nasal Cannula Oxygen Delivery Method [3] Nasal Cannula Oxygen Delivery Method [2] Nasal Cannula Oxygen Delivery Method [1 ( Nasal Cannula Initial Baseline)] Oxygen Delivery Method Room Air Weight: 122.3 kg Body Mass Index (BMI) 52.7 Intake and Output for Last 24 Hours 04/07/20 04/08/20 04/09/20 23:59 23:59 23:59 Intake Total 1544.01 / 1544.01 1757.27 / 1757.27 1139 / 1139 Output Total 2160 / 2160 46065 / 76195 825 / 825 Balance -615.99 / -615.99 -67632.73 / -73661.73 314 / 314 General: Alert, Oriented x3 HEENT: Atraumatic Oral: Moist Mucosa Neck: Supple, No JVD Lungs: Clear to auscultation, Normal air movement, No rhonchi Cardiovascular: Regular rate, Regular Rhythm, Normal S1 Abdomen: Bowel Sounds Present, Soft, Non Tender Extremities: No clubbing, No cyanosis, Edema - +1 edema of lower extremities Skin: No rashes Lymphatic: No Cervical, Supraclavicular, or Inguinal Adenopathy Neurological: Cranial nerves II-XII grossly intact, Neuro grossly intact Psych/Mental Status: Normal Affect Microbiology Past 72 Hours 04/07/20 15:00 Urine Catheter - Bose Urine Culture - Final Culture exhibits no growth. Laboratory Results 04/09/20 05:40: WBC 4.8, RBC 2.41 L, Hgb 8.2 L, Hct 25.2 L, MCV 104.6 H, MCH 34.0 H, MCHC 32.5, RDW Std Deviation 67.2 H, RDW Coeff of Yuri 18.1 H, Plt Count 85 L, MPV 10.1, Immature Gran % (Auto) 0.400, Neut % (Auto) 55.3, Lymph % (Auto) 18.6 L, [place] % (Auto) 8.3, Eos % (Auto) 16.8 H, Baso % (Auto) 0.6, Absolute Neuts (auto) 2.7, Absolute Lymphs (auto) 0.90, Nucleated RBC % 0, Platelet Estimate MOD DEC, RBC Morphology N CHROM, Hypochromasia 1+, Anisocytosis 1+, Macrocytosis 1+ 04/09/20 05:40: Sodium 137, Potassium 3.1 L, Chloride 101, Carbon Dioxide 31.0, Anion Gap 5, BUN 42 H, Creatinine 2.43 H, Estim Creat Clear Calc 16.31, Est GFR (MDRD) Af Amer 25 L, Est GFR (MDRD) Non-Af 21 L, BUN/Creatinine Ratio 17.3, Glucose 85, Calcium 7.8 L 04/09/20 05:40: Magnesium 1.7 04/09/20 05:40: Phosphorus 3.0 Current Medications Acetaminophen (Tylenol) 650 mg PO Q6H PRN PRN PRN Reason: Pain or Fever Last Admin: 04/09/20 14:26 Dose: 650 mg Documented by: Albuterol Sulfate (Ventolin Aerosols) 2.5 mg INHALATION Q4H PRN PRN PRN Reason: SHORTNESS OF BREATH Last Admin: 04/06/20 10:34 Dose: 2.5 mg Documented by: Allopurinol (Zyloprim) 100 mg PO DAILY [facility] Last Admin: 04/09/20 09:07 Dose: 100 mg Documented by: Atorvastatin Calcium (Lipitor) 5 mg PO QHS [facility] Last Admin: 04/08/20 22:01 Dose: 5 mg Documented by: Calamine/Phenol (Calmoseptine Ointment) 1 applic TOPICAL BID [facility]; Protocol Last Admin: 04/09/20 09:07 Dose: 1 applicatio Documented by: Calcium Carbonate (Tums) 500 mg PO Q6H PRN PRN PRN Reason: HEARTBURN Dextrose (D50w Syringe) 0 gm IV X1 PRN; Protocol PRN Reason: Hypoglycemia Gabapentin (Neurontin) 600 mg PO BID PRN PRN PRN Reason: Neuropathy Last Admin: 04/05/20 21:25 Dose: 300 mg Documented by: Glucagon () 1 mg IM .X1 PRN PRN Reason: Hypoglycemia Furosemide 500 mg/ N/A 50 mls @ 2 mls/hr CONT INF .Q25H [facility] Last Infusion: 04/08/20 15:03 Dose: 0 mg/hr, 0 mls/hr Documented by: Levothyroxine Sodium (Synthroid) 125 mcg PO DAILY@0600 [facility] Last Admin: 04/09/20 05:54 Dose: 125 mcg Documented by: Metolazone (Zaroxolyn) 5 mg PO DAILY [facility] Last Admin: 04/09/20 09:07 Dose: 5 mg Documented by: Metoprolol Succinate (Toprol Xl (Beta Britney)) 25 mg PO DAILY [facility] Midodrine (Proamatine) 5 mg PO TID [facility] Last Admin: 04/09/20 14:08 Dose: 5 mg Documented by: Nitroglycerin (Nitrostat) 0.4 mg SUBLINGUAL Q5M PRN PRN Reason: CARDIAC/CHEST PAIN Nutritional Formula (Lactose Free) (Ensure Clear) 120 ml PO 4X/DAY [facility] Last Admin: 04/09/20 14:04 Dose: Not Given Documented by: Pantoprazole Sodium (Protonix) 20 mg PO DAILY PRN PRN PRN Reason: HEARTBURN Last Admin: 04/09/20 08:33 Dose: 20 mg Documented by: Polysaccharide Iron Complex (Ferrex 150) 150 mg PO DAILY [facility] Last Admin: 04/09/20 09:08 Dose: 150 mg Documented by: Potassium Chloride (K-Dur) 20 meq PO BIDCM [facility] Sodium Chloride () 10 - 40 ml IV UD PRN PRN Reason: SALINE FLUSH Last Admin: 04/08/20 18:03 Dose: 10 ml Documented by: Tamsulosin HCl (Flomax) 0.4 mg PO DAILY@1730 [facility] Last Admin: 04/08/20 17:54 Dose: 0.4 mg Documented by: Medical Necessity - Tobacco Use Smoking Status: Never smoker Assessment/Plan CKD stage IV with baseline creatinine around 2.6. Renal ultrasound in September 2019 showed bilateral atrophic kidneys hence a kidney biopsy was not pursued. Kidney function remains at baseline despite significant diuresis. Patient had 4 L urine output yesterday. Patient has been off Lasix drip since April 08 at 3 PM due to blood pressure drop following high-volume paracentesis. I will start the patient on Lasix 40 mg twice a day. There is no need for renal replacement therapy. Patient is not decided about dialysis if is indicated We will continue to monitor renal function panels, electrolytes, and volume status daily. Accurate input and output. Please avoid asymmetry RB for now. Anasarca. Markedly improved. Will resume Lasix 40 mg twice a day since blood pressure is better to avoid fluid accumulation and CHF exacerbation Congestive heart failure with elevated right-sided pressures. Improved with diuresis. Currently off Lasix drip. I will resume Lasix 40 mg twice a day with close monitoring of blood pressure. Cirrhosis presumably Lora cirrhosis. Status post large-volume paracentesis on April 08. Please avoid high volume paracentesis and always give albumin following the paracentesis. Renal team will continue to follow. Please call if any question at [phone] Ortiz Rodriguez
[2020-04-09] MEDS: Tamsulosin HCl 0.4 MG Capsule PO (17:47)
[2020-04-09] MEDS: Atorvastatin Calcium 10 MG Tablet 5 MG PO (22:00)
[2020-04-09] MEDS: Ondansetron 4 MG/2 ML Vial IV (23:07)
[2020-04-09] MEDS: 0.9% Saline Lock 10 ML Syringe IV (23:07)
[2020-04-10] VITALS (18 sets, daily range): BP systolic 79–105; BP diastolic 41–51; PULSE 61–78; RESP 12–18; TEMP 36.4–37.1; O2SAT 86–97
[2020-04-10] MEDS: Midodrine HCl 5 MG Tablet PO ×2 (05:12→09:38)
[2020-04-10] MEDS: Levothyroxine 125 MCG Tablet PO (05:12)
[2020-04-10 06:12] LABS: Hematocrit 25.2 % (37-47); Hemoglobin 8.3 g/dL (12.0-15.0); Mean Corp Hgb Conc 32.9 g/dL (32-36); Mean Corpuscular Hgb 34.4 pg (27.0-32.0); Mean Corpuscular Volume 104.6 fL (81-99); Mean Platelet Vol. 11.3 fl (6.2-12.0); POSITIVE COUNT YES; POSITIVE MORPHOLOGY YES; Platelet Count 86 K/mm3 (150-450); RBC Distribution Width CV 17.3 % (11.6-14.6); RBC Distribution Width SD 65.1 fl (35.1-43.9); Red Blood Count 2.41 M/mm3 (4.2-5.4); White Blood Count 5.3 K/mm3 (4.4-11.0)
[2020-04-10 06:29] LABS: Anion Gap 5 (5-15); BUN 45 mg/dL (7-18); BUN/Creat Ratio 17.3 RATIO (10-20); Calcium,Total 7.8 mg/dL (8.5-10.1); Chloride 100 mmol/L (98-107); EST Glomerular Filtration Rate 19 mL/min (>60); Est Glom Filt Rate - Afr Amer 23 mL/min (>60); Estimated Creatinine Clearance 15.24 ml/min; Glucose 86 mg/dL (74-106); Potassium 3.4 mmol/L (3.5-5.1); Scan Indicated on CBC? Y/N YES- FLAGS NOTED; Sodium Level 136 mmol/L (136-145)
[2020-04-10 08:24] LABS: Differential Comment SCANNED
--- NOTE | 2020-04-10 09:27 | DCINST_ITS ---
- Discharge Diagnoses Current Active Problems: Current Active and Chronic Problems (Last Updated 04/05/20 @ 15:[address] Tien Christie MD) CKD (chronic kidney disease) stage 4, GFR 15-29 ml/min (Chronic) Chronic anemia (Chronic) Chronic kidney disease (CKD), stage III (moderate) (Chronic) You will use the following diet at home:: Cardiac - 2-3 grams sodium daily, 1500 cc fluid daily., Renal (restricted protein/sodium) Your food should be the consistency of: Regular Your liquids should be the consistency of: Regular/Thin Discharge Activity: Return to Normal Activity Instructions: Paracentesis, Paracentesis Additional Instructions: You will need to have blood work (CMP) within 1 week. You will need to call your primary care physician to arrange this. Allergies/Adverse Reactions: Allergies adhesive Allergy (Verified 04/04/20 18:06) Rash Penicillins [PCN] Allergy (Verified 04/04/20 18:06) Swelling Medications to take at Discharge Simvastatin 10 mg PO QHS 04/09/15 Allopurinol [Zyloprim] 100 mg PO DAILY 11/09/15 Iron Polysaccharide Complex [Ferrex 150] 150 mg PO DAILY 08/12/19 Levothyroxine [Synthroid] 125 mcg PO DAILY 08/12/19 Acetaminophen [Tylenol Tablet] 650 mg PO Q6H PRN PRN tab 08/21/19 Pantoprazole Sodium [Protonix] 40 mg PO DAILY 04/05/20 Furosemide [Lasix] 40 mg PO BID #60 tab 04/10/20 Metolazone [Zaroxolyn] 5 mg PO DAILY #30 tab 04/10/20 Metoprolol(XL)Succ [Toprol Xl (Beta Britney)] 25 mg PO DAILY #30 tab 04/10/20 Midodrine HCl 10 mg PO TID #90 tab 04/10/20 Potassium Chloride [K-Dur] 20 meq PO BIDCM #60 tab 04/10/20 Tamsulosin HCl [Flomax] 0.4 mg PO DAILY@1730 #30 cap 04/10/20 The following prescriptions were given: Tamsulosin HCl [Flomax] 0.4 mg PO DAILY@1730 #30 cap Transmission Status: Pending to [facility] [id number] Potassium Chloride [K-Dur] 20 meq PO BIDCM #60 tab Transmission Status: Pending to [facility] [id number] Furosemide [Lasix] 40 mg PO BID #60 tab Transmission Status: Pending to [facility] Midodrine HCl 10 mg PO TID #90 tab Transmission [facility]: [facility] Metoprolol(XL)Succ [Toprol Xl (Beta Britney)] 25 mg PO DAILY #30 tab [facility] Metolazone [Zaroxolyn] 5 mg PO DAILY #30 tab Transmission Status: Pending to [facility]11 Primary Care Physician: Josesito Senior MD [Primary Care Provider] - Please follow up with your Primary Care Physician in: 1 week Test Results: Test results from this visit will be discussed in further detail at your follow- up appointment, if applicable. Please Follow Up With: [facility] Nephrology When: 1 week Please Follow Up With: [facility] Hepatology When: 1 week Proposed Discharge Date: 04/10/20
[2020-04-10] MEDS: Iron Polysaccharide Complex 150 MG CAPSULE PO (09:38)
[2020-04-10] MEDS: Menthol/Lanolin/Calamine/Znox 113 GM Tube 1 APPLIC TOPICAL ×2 (09:38→21:32)
[2020-04-10] MEDS: metOLazone 5 MG Tablet PO (09:39)
[2020-04-10] MEDS: Acetaminophen 325 MG Tablet 650 MG PO (09:39)
[2020-04-10] MEDS: Allopurinol 100 MG Tablet PO (09:39)
--- NOTE | 2020-04-10 12:23 | PCM.DC.SUM ---
<Senthil Parker - Last Filed: 04/10/20 12:38> Discharge Date and Diagnosis Date of Admission: 04/04/20 Date of Discharge: 04/10/20 - Primary Discharge Diagnosis Acute on chronic diastolic CHF, ascites, complicated by RAMÍREZ with Cirrhosis pulmonary HTN, urinary retention and hypoalbuminemia Hypotension CKD IV Chronic anemia Thrombocytopenia 2/2 cirrhosis Hypomagnesemia, hypokalemia Morbid obesity Debility - Secondary Discharge Diagnosis Chronic Problems (Last Updated 04/05/20 @ 15:[address] Tien Christie MD) CKD (chronic kidney disease) stage 4, GFR 15-29 ml/min (Chronic) Afib (Chronic) Chronic anemia (Chronic) Hypertension (Chronic) Sjogrens syndrome (Chronic) Chronic kidney disease (CKD), stage III (moderate) (Chronic) Pulmonary embolism, bilateral (Chronic) Right ventricular dysfunction (Chronic) Pulmonary HTN (Chronic) Morbid obesity with BMI of 45.0-49.9, adult (Chronic) Hypothyroidism (Chronic) Hyperuricemia (Chronic) HLD (hyperlipidemia) (Chronic) Hospital Course and Treatment Imaging Results: RAD/Chest PA and Lateral IMPRESSION: Diminished inspiratory effort. Atelectasis versus infiltrate at the lung bases. 2D TTE: Interpretation Summary The study was technically difficult. Contrast injection was performed. Based upon the 2D echocardiographic and contrast enhanced images obtained there appears to be grossly normal left ventricular size, wall motion, and systolic function. The estimated ejection fraction is 55 %. Based upon the 2D echocardiographic and contrast enhanced images obtained the right ventricle appears to be moderately dilated with moderate global right ventricular systolic dysfunction. The left atrium is mildly enlarged. There is mild mitral annular calcification. Extension of the mitral annular calcification onto the base of the posterior mitral valve leaflet. Trivial mitral valve insufficiency. Mild tricuspid valve insufficiency. Right ventricular systolic pressure estimated to be 30 mmHg. Transmitral diastolic flow velocities suggest diastolic dysfunction (pseudonormal pattern). Renal US: US/Kidney and Bladder IMPRESSION: Limited examination. Small cyst in the right kidney with atrophy. The left kidney was not visualized. Ascites. US/Abdomen Limited IMPRESSION: Large amount of ascites. US/Paracentesis with US IMPRESSION: Ultrasound guided paracentesis. Consults: Nephrology - [facility] Interventional Radiology - [facility] Operations: None Procedures: 2-D Echocardiogram, Blood transfusion, Paracentesis Summary of Care Provided: Hospital Course: The patient is a 74 year old F with pmhx of cirrhosis 2/2 RAMÍREZ pt of [facility] hepatology, CKDIV pt of [facility] nephrology, diastolic CHF, pulmonary HTN, chronic macrocytic anemia, thromboctpenia 2/2 cirrhosis, morbid obesity, who presented to the ER with c/o SOB, weight gain, abdominal distention, and LE edema for 3-4 days leading up to admission. She was up about 40 lbs. BNP was elevated and she appeared frankly fluid overloaded. She was admitted to the PCU for acute on chronic diastolic CHF complicated by her multiple above chronic medical problems. [facility] was consulted given her renal function. She had little diuresis on initial IV lasix boluses. She was placed on lasix drip. She had urinary retention and temporarily had a brannon placed and was started on flomax. She had an abdominal US revealing large ascites, then later underwent a paracentesis for 8150 cc of fluid. She received albumin after. She had persistently low BP and had progressively decreasing doses of metoprolol until it was discontinued completed. She was started on midodrine and will continue to need this at 10mg TID. She did receive a transfusion of 1 unit of PRBC while here for chronic anemia. She also underwent an echo which showed mild pulmonary HTN and preserved EF as above. She had a renal ultrasound as above: small cyst right kidney with atrophy, no visulization of the left kidney, and ascites. She was unable to be weaned off of oxygen despite improvement in her symptoms, large volumes of fluid removed, and significant improvement in her weight. She is active at home and in the community and will require 2lpm continuous oxygen at discharge. She was very debilitated, however. PT and OT worked with her and found her very weak, however she could walk with assistance. She is minimally able to complete ADLs but is insistent that her handles all of these for her. She was dismissive of SNF. She previously had home health care services and we recommended continuing these at discharge. The patient was discharged in stable condition and will need 1 week follow up with her PCP, fixing carpenter, and bronzer. She will need a BMP checked this week. She will continue midodrine, lasix, xaroxalyn, and flomax at discharge. This patient was seen by Senthil Parker PA-C under the supervision of Dr. Christie. [] - Physical Exam Vitals/I&O's: Vital Signs Temp Pulse Resp BP Pulse Ox 98.2 F 66 12 92/46 L 95 04/10/20 11:49 04/10/20 11:49 04/10/20 11:49 04/10/20 11:49 04/10/20 11:49 Oxygen Flow Rate (L/min) [6] 2 Oxygen Flow Rate (L/min) [5] 2 Oxygen Flow Rate (L/min) [4] 2 Oxygen Flow Rate (L/min) [3] 2 Oxygen Flow Rate (L/min) [2] 2 Oxygen Flow Rate (L/min) [1 ( 2 Initial Baseline)] Oxygen Flow Rate (L/min) [ 2 AMBULATION with Oxygen] Oxygen Flow Rate (L/min) 2 Oxygen Delivery Method [6] Nasal Cannula Oxygen Delivery Method [5] Nasal Cannula Oxygen Delivery Method [4] Nasal Cannula Oxygen Delivery Method [3] Nasal Cannula Oxygen Delivery Method [2] Nasal Cannula Oxygen Delivery Method [1 ( Nasal Cannula Initial Baseline)] Oxygen Delivery Method Nasal Cannula Weight: 269 lb 13.533 oz Body Mass Index (BMI) 52.7 Intake and Output for Last 24 Hours 04/08/20 04/09/20 04/10/20 23:59 23:59 23:59 Intake Total 1757.27 / 1757.27 1486 / 1486 390 / 390 Output Total 07715 / 84435 925 / 925 Balance -22071.73 / -29878.73 561 / 561 390 / 390 General: Alert, Oriented x3, Cooperative HEENT: Atraumatic, PERRLA, EOMI, Normocephalic Neck: Supple, No JVD, Negative Carotid Bruits Lungs: Clear to auscultation, Diminished Cardiovascular: Regular rate, No murmurs Abdomen: Bowel Sounds Present, Soft, Non Tender, Obese Extremities: Capillary Refill Less than 3 Seconds, Edema - 2+ pitting edema BLE Skin: No rashes, No breakdown Musculoskeletal: No Tenderness to Palpation of Joints or Extremities Neurological: Cranial nerves II-XII grossly intact Psych/Mental Status: Normal Affect, Appropriate, Alert and oriented to time, place, person, mood and affect Microbiology Past 72 Hours 04/07/20 15:00 Urine Catheter - Brannon Urine Culture - Final Culture exhibits no growth. Laboratory Results 04/10/20 05:18: WBC 5.3, RBC 2.41 L, Hgb 8.3 L, Hct 25.2 L, MCV 104.6 H, MCH 34.4 H, MCHC 32.9, RDW Std Deviation 65.1 H, RDW Coeff of Yuri 17.3 H, Plt Count 86 L, MPV 11.3, Differential Comment SCANNED 04/10/20 05:18: Sodium 136, Potassium 3.4 L, Chloride 100, Carbon Dioxide 31.0, Anion Gap 5, BUN 45 H, Creatinine 2.60 H, Estim Creat Clear Calc 15.24, Est GFR (MDRD) Af Amer 23 L, Est GFR (MDRD) Non-Af 19 L, BUN/Creatinine Ratio 17.3, Glucose 86, Calcium 7.8 L, Magnesium 2.0 Current Medications Acetaminophen (Tylenol) 650 mg PO Q6H PRN PRN PRN Reason: Pain or Fever Last Admin: 04/10/20 09:39 Dose: 650 mg Documented by: Albuterol Sulfate (Ventolin Aerosols) 2.5 mg INHALATION Q4H PRN PRN PRN Reason: SHORTNESS OF BREATH Last Admin: 04/06/20 10:34 Dose: 2.5 mg Documented by: Allopurinol (Zyloprim) 100 mg PO DAILY [facility] Last Admin: 04/10/20 09:39 Dose: 100 mg Documented by: Atorvastatin Calcium (Lipitor) 5 mg PO QHS [facility] Last Admin: 04/09/20 22:00 Dose: 5 mg Documented by: Calamine/Phenol (Calmoseptine Ointment) 1 applic TOPICAL BID [facility]; Protocol Last Admin: 04/10/20 09:38 Dose: 1 applicatio Documented by: Calcium Carbonate (Tums) 500 mg PO Q6H PRN PRN PRN Reason: HEARTBURN Dextrose (D50w Syringe) 0 gm IV X1 PRN; Protocol PRN Reason: Hypoglycemia Furosemide (Lasix) 40 mg IV BID@1000,1800 SITA Last Admin: 04/10/20 09:39 Dose: Not Given Documented by: Gabapentin (Neurontin) 600 mg PO BID PRN PRN PRN Reason: Neuropathy Last Admin: 04/05/20 21:25 Dose: 300 mg Documented by: Glucagon () 1 mg IM .X1 PRN PRN Reason: Hypoglycemia Levothyroxine Sodium (Synthroid) 125 mcg PO DAILY@0600 [facility] Last Admin: 04/10/20 05:12 Dose: 125 mcg Documented by: Metolazone (Zaroxolyn) 5 mg PO DAILY [facility] Last Admin: 04/10/20 09:39 Dose: 5 mg Documented by: Metoprolol Succinate (Toprol Xl (Beta Britney)) 25 mg PO DAILY [facility] Last Admin: 04/10/20 09:39 Dose: Not Given Documented by: Midodrine (Proamatine) 5 mg PO TID [facility] Last Admin: 04/10/20 05:12 Dose: 5 mg Documented by: Nitroglycerin (Nitrostat) 0.4 mg SUBLINGUAL Q5M PRN PRN Reason: CARDIAC/CHEST PAIN Ondansetron HCl (Zofran) 4 mg IV Q6H PRN PRN PRN Reason: NAUSEA/VOMITING Last Admin: 04/09/20 23:07 Dose: 4 mg Documented by: Pantoprazole Sodium (Protonix) 20 mg PO DAILY PRN PRN PRN Reason: HEARTBURN Last Admin: 04/09/20 08:33 Dose: 20 mg Documented by: Polysaccharide Iron Complex (Ferrex 150) 150 mg PO DAILY [facility] Last Admin: 04/10/20 09:38 Dose: 150 mg Documented by: Potassium Chloride (K-Dur) 20 meq PO BIDCM [facility] Last Admin: 04/10/20 09:38 Dose: 20 meq Documented by: Sodium Chloride () 10 - 40 ml IV UD PRN PRN Reason: SALINE FLUSH Last Admin: 04/09/20 23:07 Dose: 20 ml Documented by: Tamsulosin HCl (Flomax) 0.4 mg PO DAILY@1730 [facility] Last Admin: 04/09/20 17:47 Dose: 0.4 mg Documented by: Discharge Diet: Low fat/ Low Cholesterol, 2000 mg Sodium Diet - 2-3 g sodium daily, Renal Diet, - - 1500 cc / day fluid restriction Discharge Activity: Return to Normal Activity Home Medications: Medications to take at Discharge Simvastatin 10 mg PO QHS 04/09/15 Allopurinol [Zyloprim] 100 mg PO DAILY 11/09/15 Iron Polysaccharide Complex [Ferrex 150] 150 mg PO DAILY 08/12/19 Levothyroxine [Synthroid] 125 mcg PO DAILY 08/12/19 Acetaminophen [Tylenol Tablet] 650 mg PO Q6H PRN PRN tab 08/21/19 Pantoprazole Sodium [Protonix] 40 mg PO DAILY 04/05/20 Furosemide [Lasix] 40 mg PO BID #60 tab 04/10/20 Metolazone [Zaroxolyn] 5 mg PO DAILY #30 tab 04/10/20 Midodrine HCl 10 mg PO TID #90 tab 04/10/20 Potassium Chloride [K-Dur] 20 meq PO BIDCM #60 tab 04/10/20 Tamsulosin HCl [Flomax] 0.4 mg PO DAILY@1730 #30 cap 04/10/20 Following Prescrptions Were Given to Patient: Tamsulosin HCl [Flomax] 0.4 mg PO DAILY@1730 #30 cap Transmission Status: Received by [facility]12 Potassium Chloride [K-Dur] 20 meq PO BIDCM #60 tab Transmission Status: Received by [facility] 1812 Furosemide [Lasix] 40 mg PO BID #60 tab Transmission Status: Received by [facility] 1812 Midodrine HCl 10 mg PO TID #90 tab Transmission Status: Received by [facility] 1812 Metolazone [Zaroxolyn] 5 mg PO DAILY #30 tab Transmission Status: Received by [facility]12 Primary Care Physician: Josesito Senior MD [Primary Care Provider] - Please follow up with your Primary Care Physician in: 1 week Please Follow Up With: [facility] Nephrology When: 1 week Please Follow Up With: [facility] Hepatology When: 1 week Patient Instructions: Paracentesis, Paracentesis Disposition: Home with Home Health Minutes spent on discharge:: 35 Patient Condition:: Stable Medical Necessity - Tobacco Use Smoking Status: Never smoker Meaningful Use Info Meaningful Use Diagnoses (Choose all that apply): CHF - CHF GANGA/ARB ordered at discharge?: No Reason GANGA/ARB not ordered?: Worsening renal disease Documented LVEF (%): 55 <Tien Christie - Last Filed: 04/10/20 15:48> Discharge Date and Diagnosis - Secondary Discharge Diagnosis Chronic Problems (Last Updated 04/05/20 @ 15:[address] Tien Christie MD) CKD (chronic kidney disease) stage 4, GFR 15-29 ml/min (Chronic) Afib (Chronic) Chronic anemia (Chronic) Hypertension (Chronic) Sjogrens syndrome (Chronic) Chronic kidney disease (CKD), stage III (moderate) (Chronic) Pulmonary embolism, bilateral (Chronic) Right ventricular dysfunction (Chronic) Pulmonary HTN (Chronic) Morbid obesity with BMI of 45.0-49.9, adult (Chronic) Hypothyroidism (Chronic) Hyperuricemia (Chronic) HLD (hyperlipidemia) (Chronic) Hospital Course and Treatment Summary of Care Provided: Hospitalist note: Discharge was canceled because patient was hypotensive. She is asymptomatic. Dose of midodrine increased and she was switched to oral Lasix and q. other day metolazone. - Physical Exam Vitals/I&O's: Vital Signs Temp Pulse Resp BP Pulse Ox 97.5 F L 75 15 88/45 L 95 04/10/20 15:16 04/10/20 15:16 04/10/20 15:16 04/10/20 15:16 04/10/20 15:16 Oxygen Flow Rate (L/min) [6] 2 Oxygen Flow Rate (L/min) [5] 2 Oxygen Flow Rate (L/min) [4] 2 Oxygen Flow Rate (L/min) [3] 2 Oxygen Flow Rate (L/min) [2] 2 Oxygen Flow Rate (L/min) [1 ( 2 Initial Baseline)] Oxygen Flow Rate (L/min) [ 2 AMBULATION with Oxygen] Oxygen Flow Rate (L/min) 2 Oxygen Delivery Method [6] Nasal Cannula Oxygen Delivery Method [5] Nasal Cannula Oxygen Delivery Method [4] Nasal Cannula Oxygen Delivery Method [3] Nasal Cannula Oxygen Delivery Method [2] Nasal Cannula Oxygen Delivery Method [1 ( Nasal Cannula Initial Baseline)] Oxygen Delivery Method Nasal Cannula Weight: 269 lb 13.533 oz Body Mass Index (BMI) 52.7 Intake and Output for Last 24 Hours 04/08/20 04/09/20 04/10/20 23:59 23:59 23:59 Intake Total 1757.27 / 1757.27 1486 / 1486 390 / 390 Output Total 41183 / 33105 925 / 925 Balance -33719.73 / -35824.73 561 / 561 390 / 390 Microbiology Past 72 Hours 04/07/20 15:00 Urine Catheter - Brannon Urine Culture - Final Culture exhibits no growth. Laboratory Results 04/08/20 10:50: Miscellaneous Test 04/10/20 05:18: WBC 5.3, RBC 2.41 L, Hgb 8.3 L, Hct 25.2 L, MCV 104.6 H, MCH 34.4 H, MCHC 32.9, RDW Std Deviation 65.1 H, RDW Coeff of Yuri 17.3 H, Plt Count 86 L, MPV 11.3, Differential Comment SCANNED 04/10/20 05:18: Sodium 136, Potassium 3.4 L, Chloride 100, Carbon Dioxide 31.0, Anion Gap 5, BUN 45 H, Creatinine 2.60 H, Estim Creat Clear Calc 15.24, Est GFR (MDRD) Af Amer 23 L, Est GFR (MDRD) Non-Af 19 L, BUN/Creatinine Ratio 17.3, Glucose 86, Calcium 7.8 L, Magnesium 2.0 Current Medications Acetaminophen (Tylenol) 650 mg PO Q6H PRN PRN PRN Reason: Pain or Fever Last Admin: 04/10/20 09:39 Dose: 650 mg Documented by: Albuterol Sulfate (Ventolin Aerosols) 2.5 mg INHALATION Q4H PRN PRN PRN Reason: SHORTNESS OF BREATH Last Admin: 04/06/20 10:34 Dose: 2.5 mg Documented by: Allopurinol (Zyloprim) 100 mg PO DAILY [facility] Last Admin: 04/10/20 09:39 Dose: 100 mg Documented by: Atorvastatin Calcium (Lipitor) 5 mg PO QHS [facility] Last Admin: 04/09/20 22:00 Dose: 5 mg Documented by: Calamine/Phenol (Calmoseptine Ointment) 1 applic TOPICAL BID [facility]; Protocol Last Admin: 04/10/20 09:38 Dose: 1 applicatio Documented by: Calcium Carbonate (Tums) 500 mg PO Q6H PRN PRN PRN Reason: HEARTBURN Dextrose (D50w Syringe) 0 gm IV X1 PRN; Protocol PRN Reason: Hypoglycemia Furosemide (Lasix) 40 mg PO BID@1000,1800 [facility] Gabapentin (Neurontin) 600 mg PO BID PRN PRN PRN Reason: Neuropathy Last Admin: 04/05/20 21:25 Dose: 300 mg Documented by: Glucagon () 1 mg IM .X1 PRN PRN Reason: Hypoglycemia Levothyroxine Sodium (Synthroid) 125 mcg PO DAILY@0600 [facility] Last Admin: 04/10/20 05:12 Dose: 125 mcg Documented by: Metolazone (Zaroxolyn) 2.5 mg PO QODAY [facility] Midodrine (Proamatine) 10 mg PO TID [facility] Last Admin: 04/10/20 13:40 Dose: 10 mg Documented by: Nitroglycerin (Nitrostat) 0.4 mg SUBLINGUAL Q5M PRN PRN Reason: CARDIAC/CHEST PAIN Ondansetron HCl (Zofran) 4 mg IV Q6H PRN PRN PRN Reason: NAUSEA/VOMITING Last Admin: 04/09/20 23:07 Dose: 4 mg Documented by: Pantoprazole Sodium (Protonix) 20 mg PO DAILY PRN PRN PRN Reason: HEARTBURN Last Admin: 04/09/20 08:33 Dose: 20 mg Documented by: Polysaccharide Iron Complex (Ferrex 150) 150 mg PO DAILY [facility] Last Admin: 04/10/20 09:38 Dose: 150 mg Documented by: Potassium Chloride (K-Dur) 20 meq PO BIDCM [facility] Last Admin: 04/10/20 09:38 Dose: 20 meq Documented by: Sodium Chloride () 10 - 40 ml IV UD PRN PRN Reason: SALINE FLUSH Last Admin: 04/09/20 23:07 Dose: 20 ml Documented by: Tamsulosin HCl (Flomax) 0.4 mg PO DAILY@1730 [facility] Last Admin: 04/09/20 17:47 Dose: 0.4 mg Documented by:
[2020-04-10] MEDS: Midodrine HCl 5 MG Tablet 10 MG PO ×2 (13:40→21:31)
--- NOTE | 2020-04-10 14:24 | PN_ITS ---
<Senthil Parker - Last Filed: 04/10/20 14:24> Reason for Visit: anasarca Subjective: Pt with some ongoing LE edema, she declines ganga wraps due to discomfort. No SOB however unable to be weaned off O2. No prior home o2 - will arrange this for her. Ongoing abd distention but still improved since paracentesis. Pt very weak however she did walk with PTOT with assistance. Vitals/I&O's: Vital Signs Temp Pulse Resp BP Pulse Ox 97.8 F 61 13 79/41 L 97 04/10/20 13:33 04/10/20 13:33 04/10/20 13:33 04/10/20 13:33 04/10/20 13:33 Oxygen Flow Rate (L/min) [6] 2 Oxygen Flow Rate (L/min) [5] 2 Oxygen Flow Rate (L/min) [4] 2 Oxygen Flow Rate (L/min) [3] 2 Oxygen Flow Rate (L/min) [2] 2 Oxygen Flow Rate (L/min) [1 ( 2 Initial Baseline)] Oxygen Flow Rate (L/min) [ 2 AMBULATION with Oxygen] Oxygen Flow Rate (L/min) 2 Oxygen Delivery Method [6] Nasal Cannula Oxygen Delivery Method [5] Nasal Cannula Oxygen Delivery Method [4] Nasal Cannula Oxygen Delivery Method [3] Nasal Cannula Oxygen Delivery Method [2] Nasal Cannula Oxygen Delivery Method [1 ( Nasal Cannula Initial Baseline)] Oxygen Delivery Method Nasal Cannula Weight: 269 lb 13.533 oz Body Mass Index (BMI) 52.7 Intake and Output for Last 24 Hours 04/08/20 04/09/20 04/10/20 23:59 23:59 23:59 Intake Total 1757.27 / 1757.27 1486 / 1486 390 / 390 Output Total 60750 / 20813 925 / 925 Balance -95933.73 / -61769.73 561 / 561 390 / 390 General: Alert, Oriented x3, Cooperative HEENT: Atraumatic, PERRLA, EOMI, Normocephalic Neck: Supple, No JVD, Negative Carotid Bruits Lungs: Clear to auscultation, Diminished Cardiovascular: Regular rate, No murmurs Abdomen: Bowel Sounds Present, Soft, Non Tender, Distended, Obese Extremities: Capillary Refill Less than 3 Seconds, Edema - 2+ pitting edema BLE Skin: No rashes, No breakdown Musculoskeletal: No Tenderness to Palpation of Joints or Extremities Neurological: Cranial nerves II-XII grossly intact Psych/Mental Status: Normal Affect, Appropriate, Alert and oriented to time, place, person, mood and affect Microbiology Past 72 Hours 04/07/20 15:00 Urine Catheter - Brannon Urine Culture - Final Culture exhibits no growth. Laboratory Results 04/10/20 05:18: WBC 5.3, RBC 2.41 L, Hgb 8.3 L, Hct 25.2 L, MCV 104.6 H, MCH 34.4 H, MCHC 32.9, RDW Std Deviation 65.1 H, RDW Coeff of Yuri 17.3 H, Plt Count 86 L, MPV 11.3, Differential Comment SCANNED 04/10/20 05:18: Sodium 136, Potassium 3.4 L, Chloride 100, Carbon Dioxide 31.0, Anion Gap 5, BUN 45 H, Creatinine 2.60 H, Estim Creat Clear Calc 15.24, Est GFR (MDRD) Af Amer 23 L, Est GFR (MDRD) Non-Af 19 L, BUN/Creatinine Ratio 17.3, Glucose 86, Calcium 7.8 L, Magnesium 2.0 Current Medications Acetaminophen (Tylenol) 650 mg PO Q6H PRN PRN PRN Reason: Pain or Fever Last Admin: 04/10/20 09:39 Dose: 650 mg Documented by: Albuterol Sulfate (Ventolin Aerosols) 2.5 mg INHALATION Q4H PRN PRN PRN Reason: SHORTNESS OF BREATH Last Admin: 04/06/20 10:34 Dose: 2.5 mg Documented by: Allopurinol (Zyloprim) 100 mg PO DAILY [facility] Last Admin: 04/10/20 09:39 Dose: 100 mg Documented by: Atorvastatin Calcium (Lipitor) 5 mg PO QHS [facility] Last Admin: 04/09/20 22:00 Dose: 5 mg Documented by: Calamine/Phenol (Calmoseptine Ointment) 1 applic TOPICAL BID [facility]; Protocol Last Admin: 04/10/20 09:38 Dose: 1 applicatio Documented by: Calcium Carbonate (Tums) 500 mg PO Q6H PRN PRN PRN Reason: HEARTBURN Dextrose (D50w Syringe) 0 gm IV X1 PRN; Protocol PRN Reason: Hypoglycemia Furosemide (Lasix) 40 mg PO BID@1000,1800 [facility] Gabapentin (Neurontin) 600 mg PO BID PRN PRN PRN Reason: Neuropathy Last Admin: 04/05/20 21:25 Dose: 300 mg Documented by: Glucagon () 1 mg IM .X1 PRN PRN Reason: Hypoglycemia Levothyroxine Sodium (Synthroid) 125 mcg PO DAILY@0600 [facility] Last Admin: 04/10/20 05:12 Dose: 125 mcg Documented by: Metolazone (Zaroxolyn) 2.5 mg PO QODAY [facility] Midodrine (Proamatine) 10 mg PO TID [facility] Last Admin: 04/10/20 13:40 Dose: 10 mg Documented by: Nitroglycerin (Nitrostat) 0.4 mg SUBLINGUAL Q5M PRN PRN Reason: CARDIAC/CHEST PAIN Ondansetron HCl (Zofran) 4 mg IV Q6H PRN PRN PRN Reason: NAUSEA/VOMITING Last Admin: 04/09/20 23:07 Dose: 4 mg Documented by: Pantoprazole Sodium (Protonix) 20 mg PO DAILY PRN PRN PRN Reason: HEARTBURN Last Admin: 04/09/20 08:33 Dose: 20 mg Documented by: Polysaccharide Iron Complex (Ferrex 150) 150 mg PO DAILY [facility] Last Admin: 04/10/20 09:38 Dose: 150 mg Documented by: [facility] Last Admin: 04/10/20 09:38 Dose: 20 meq Documented by: Sodium Chloride () 10 - 40 ml IV UD PRN PRN Reason: SALINE FLUSH Last Admin: 04/09/20 23:07 Dose: 20 ml Documented by: Tamsulosin HCl (Flomax) 0.4 mg PO DAILY@1730 [facility] Last Admin: 04/09/20 17:47 Dose: 0.4 mg Documented by: STROKE Vital Signs/Narrative: Vital Signs Temp Pulse Resp BP Pulse Ox 04/10/20 13:33 97.8 F 61 13 79/41 L 97 04/10/20 11:49 98.2 F 66 12 92/46 L 95 Medical Necessity - Tobacco Use Smoking Status: Never smoker Assessment/Plan 1. 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 Macrocytic anemia - Remains stable. prior studies without clear etiology. will trend. s/p 1 unit prbc. continue ferrex. 3. Thrombocytopenia suspect 2/2 cirrhosis - will trend. 4. CKDIV - trend. nephrology following. stable. 5. hypotension - midodrine increased to 10 TID. metoprolol discontinued 6. Hypomagnesemia, Hypokalemia - replete K again. mag normalized 7. 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 Urinary retention - brannon out. passed voiding trial. continue flomax. 9. Debility - very weak. did walk with therapy today. she plans to resume [facility] services. helps with ADLs. DVT ppx: SCDs. hold heparin with thrombocytopenia DC planning: home with [facility]. This patient was seen by Senthil Parker PA-C under the supervision of Dr. Christie. <Tien Christie E - Last Filed: 04/10/20 15:52> Vitals/I&O's: Vital Signs Temp Pulse Resp BP Pulse Ox 97.5 F L 75 15 88/45 L 95 04/10/20 15:16 04/10/20 15:16 04/10/20 15:16 04/10/20 15:16 04/10/20 15:16 Oxygen Flow Rate (L/min) [6] 2 Oxygen Flow Rate (L/min) [5] 2 Oxygen Flow Rate (L/min) [4] 2 Oxygen Flow Rate (L/min) [3] 2 Oxygen Flow Rate (L/min) [2] 2 Oxygen Flow Rate (L/min) [1 ( 2 Initial Baseline)] Oxygen Flow Rate (L/min) [ 2 AMBULATION with Oxygen] Oxygen Flow Rate (L/min) 2 Oxygen Delivery Method [6] Nasal Cannula Oxygen Delivery Method [5] Nasal Cannula Oxygen Delivery Method [4] Nasal Cannula Oxygen Delivery Method [3] Nasal Cannula Oxygen Delivery Method [2] Nasal Cannula Oxygen Delivery Method [1 ( Nasal Cannula Initial Baseline)] Oxygen Delivery Method Nasal Cannula Weight: 269 lb 13.533 oz Body Mass Index (BMI) 52.7 Intake and Output for Last 24 Hours 04/08/20 04/09/20 04/10/20 23:59 23:59 23:59 Intake Total 1757.27 / 1757.27 1486 / 1486 390 / 390 Output Total 19775 / 22253 925 / 925 Balance -35792.73 / -42847.73 561 / 561 390 / 390 Microbiology Past 72 Hours 04/07/20 15:00 Urine Catheter - Brannon Urine Culture - Final Culture exhibits no growth. Laboratory Results 04/08/20 10:50: Miscellaneous Test 04/10/20 05:18: WBC 5.3, RBC 2.41 L, Hgb 8.3 L, Hct 25.2 L, MCV 104.6 H, MCH 34.4 H, MCHC 32.9, RDW Std Deviation 65.1 H, RDW Coeff of Yuri 17.3 H, Plt Count 86 L, MPV 11.3, Differential Comment SCANNED 04/10/20 05:18: Sodium 136, Potassium 3.4 L, Chloride 100, Carbon Dioxide 31.0, Anion Gap 5, BUN 45 H, Creatinine 2.60 H, Estim Creat Clear Calc 15.24, Est GFR (MDRD) Af Amer 23 L, Est GFR (MDRD) Non-Af 19 L, BUN/Creatinine Ratio 17.3, Glucose 86, Calcium 7.8 L, Magnesium 2.0 Current Medications Acetaminophen (Tylenol) 650 mg PO Q6H PRN PRN PRN Reason: Pain or Fever Last Admin: 04/10/20 09:39 Dose: 650 mg Documented by: Albuterol Sulfate (Ventolin Aerosols) 2.5 mg INHALATION Q4H PRN PRN PRN Reason: SHORTNESS OF BREATH Last Admin: 04/06/20 10:34 Dose: 2.5 mg Documented by: Allopurinol (Zyloprim) 100 mg PO DAILY [facility] Last Admin: 04/10/20 09:39 Dose: 100 mg Documented by: Atorvastatin Calcium (Lipitor) 5 mg PO QHS [facility] Last Admin: 04/09/20 22:00 Dose: 5 mg Documented by: Calamine/Phenol (Calmoseptine Ointment) 1 applic TOPICAL BID [facility]; Protocol Last Admin: 04/10/20 09:38 Dose: 1 applicatio Documented by: Calcium Carbonate (Tums) 500 mg PO Q6H PRN PRN PRN Reason: HEARTBURN Dextrose (D50w Syringe) 0 gm IV X1 PRN; Protocol PRN Reason: Hypoglycemia Furosemide (Lasix) 40 mg PO BID@1000,1800 [facility] Gabapentin (Neurontin) 600 mg PO BID PRN PRN PRN Reason: Neuropathy Last Admin: 04/05/20 21:25 Dose: 300 mg Documented by: Glucagon () 1 mg IM .X1 PRN PRN Reason: Hypoglycemia Levothyroxine Sodium (Synthroid) 125 mcg PO DAILY@0600 [facility] Last Admin: 04/10/20 05:12 Dose: 125 mcg Documented by: Metolazone (Zaroxolyn) 2.5 mg PO QODAY [facility] Midodrine (Proamatine) 10 mg PO TID [facility] Last Admin: 04/10/20 13:40 Dose: 10 mg Documented by: Nitroglycerin (Nitrostat) 0.4 mg SUBLINGUAL Q5M PRN PRN Reason: CARDIAC/CHEST PAIN Ondansetron HCl (Zofran) 4 mg IV Q6H PRN PRN PRN Reason: NAUSEA/VOMITING Last Admin: 04/09/20 23:07 Dose: 4 mg Documented by: Pantoprazole Sodium (Protonix) 20 mg PO DAILY PRN PRN PRN Reason: HEARTBURN Last Admin: 04/09/20 08:33 Dose: 20 mg Documented by: Polysaccharide Iron Complex (Ferrex 150) 150 mg PO DAILY [facility] Last Admin: 04/10/20 09:38 Dose: 150 mg Documented by: Potassium Chlor[facility] ([facility]-Dur) [facility] Last Admin: 04/10/20 09:38 Dose: 20 meq Documented by: Sodium Chloride () 10 - 40 ml IV UD PRN PRN Reason: SALINE FLUSH Last Admin: 04/09/20 23:07 Dose: 20 ml Documented by: Tamsulosin HCl (Flomax) 0.4 mg PO DAILY@1730 [facility] Last Admin: 04/09/20 17:47 Dose: 0.4 mg Documented by: STROKE Vital Signs/Narrative: Vital Signs Temp Pulse Resp BP Pulse Ox 04/10/20 15:16 97.5 F L 75 15 88/45 L 95 04/10/20 13:33 97.8 F 61 13 79/41 L 97 04/10/20 11:49 98.2 F 66 12 92/46 L 95 Assessment/Plan Hospitalist note: I am seeing this patient in conjunction with Senthil Parker. I independently seen and examined the patient. Progress note above, laboratory data and imaging studies reviewed and I concur with above treatment plan. Shortness of breath has been stable but nursing staff were not able to wean her off oxygen. Leg edema is improving. Blood pressure still borderline, still on oxygen at 1 to 2 L, afebrile. - Physical Exam General: Alert, Oriented x3, Cooperative, no significant apparent distress. HEENT: Atraumatic, PERRLA, EOMI. Neck: Supple, No JVD, Negative Carotid Bruits, Trachea Midline, Thyroid Normal. Lungs: Diminished breath sounds at the bases, bilateral faint basilar crackles, No rhonchi, No wheeze. Cardiovascular: Regular rate, Regular Rhythm, Normal S1, Normal S2, PMI Normal. Abdomen: Bowel Sounds Present, Soft, Non Tender, Non-Distended, No Hepato- splenomegaly, ascites. Extremities: No clubbing, No cyanosis, + edema Skin: No rashes, No breakdown Neurological: Cranial nerves are intact, neuro grossly intact Vital Signs are stable. Assessment and plan: #1 acute diastolic CHF with preserved ejection fraction: Switch to IV Lasix twice daily since yesterday, remains on metolazone, and midodrine for low blood pressure. She has a good urine output. Kidney function went up slightly today but still at baseline. She does have history of stage IV chronic kidney disease. She is not on GANGA inhibitor because of chronic kidney disease. 2D echocardiogram revealed ejection fraction 55%, moderately dilated right ventricle, RVSP of 30. EKG revealed no acute ischemic changes. Troponin is negative x3. Plan: DC IV Lasix, start p.o. Lasix, change metolazone to 2.5 mg p.o. q. other day, increase midodrine to 10 mg p.o. 3 times daily. #2 acute on chronic anemia: Baseline hemoglobin has been around 9 to 11 g/dL over the last year. Received 1 unit of packed RBCs. Today's hemoglobin is 8.3 g/dL, plan to keep hemoglobin above 8 g/dL. Patient denies any active bleeding. #4 ascites: Large amount, status post paracentesis, 8 L removed. Ascitic fluid analysis reviewed, appeared to be transudative. She received IV albumin. Plan as above. #2 hypoxia: Secondary to #1. Remained on 1-2 L and later this morning, she was taken off oxygen. Plan to continue same treatment as above, patient probably will need home oxygen upon discharge. #3 stage IV chronic kidney disease: Kidney function started to go up today but still at baseline. Renal ultrasound revealed mild atrophy of the right kidney, left kidney was not visualized which could be because of the large amount of ascites. Nephrology on the case. Continue same treatment. #4 other chronic medical problems: Stable, continue current medications as above. This note was generated with [employer] dictation software. It may contain incorrect words, spelling, and punctuation that were not noted in checking the note before signing. Inpatient E&M: 75893 Subs Hosp L2
[2020-04-10] MEDS: Albumin Human 25% (100 mL) 25 GM/100 ML BAG IV (17:22)
[2020-04-10] MEDS: Tamsulosin HCl 0.4 MG Capsule PO (17:22)
[2020-04-10] MEDS: Furosemide 40 MG Tablet PO (17:22)
[2020-04-10] MEDS: 0.9% Saline Lock 10 ML Syringe IV (17:23)
[2020-04-10] MEDS: Atorvastatin Calcium 10 MG Tablet 5 MG PO (21:32)
[2020-04-11] VITALS (7 sets, daily range): BP systolic 93–130; BP diastolic 45–65; PULSE 76–82; RESP 18; TEMP 36.6–36.9; O2SAT 93–94
[2020-04-11] MEDS: Midodrine HCl 5 MG Tablet 10 MG PO ×2 (06:14→13:49)
[2020-04-11] MEDS: Levothyroxine 125 MCG Tablet PO (06:14)
[2020-04-11 08:11] LABS: Anion Gap 7 (5-15); BUN 47 mg/dL (7-18); BUN/Creat Ratio 17.8 RATIO (10-20); Calcium,Total 8.1 mg/dL (8.5-10.1); Chloride 100 mmol/L (98-107); Creatinine, Serum 2.64 mg/dL (0.55-1.02); EST Glomerular Filtration Rate 19 mL/min (>60); Est Glom Filt Rate - Afr Amer 23 mL/min (>60); Estimated Creatinine Clearance 15.01 ml/min; Glucose 86 mg/dL (74-106); Potassium 3.4 mmol/L (3.5-5.1); Sodium Level 135 mmol/L (136-145)
[2020-04-11] MEDS: Menthol/Lanolin/Calamine/Znox 113 GM Tube 1 APPLIC TOPICAL (09:11)
[2020-04-11] MEDS: Iron Polysaccharide Complex 150 MG CAPSULE PO (09:11)
[2020-04-11] MEDS: Allopurinol 100 MG Tablet PO (09:12)
--- NOTE | 2020-04-11 09:42 | CASEMGMT ---
Pt states plan is still to go home at discharge and pt states no concerns with going home at this time. Pt is aware that she will require home oxygen and pt was already set up with [employer] yesterday as the plan was for her to discharge yesterday but her BP dropped in the afternoon. Pt already has [employer] e-tank at bedside for discharge. Call to Yanira at [facility] to notify that pt was not discharged yesterday, voices understanding and she states that no further documentation needed at this time. Yanira is aware that pt to be discharged today, voices understanding. Pt already current with [facility] and [facility] order as well as H&P, D/C summ/instructions faxed to [facility] at this time. Call to [facility] to notify of fax and pt discharge, voices understanding. Pt is updated on all, voices understanding. Pt voices no further questions/concerns/needs at this time. Lanny FLORES CM
[2020-04-11 11:41] LABS: Pathologist Comment/Body Fluid Reviewed
== END 2020-04-11 14:30 | disposition home or self-care (01) | DRG 947 ==
LOC: ED 22:22 → PCU 23:14
PROVIDERS: Hospitalist; Nurse Practitioner Family; Physician Assistant; Emergency Provider Emergency Medicine; PCP Family Medicine; Visit Provider Internal Medicine
DX: R18.8 Other ascites (principal); I50.33 Acute on chronic diastolic (congestive) heart failure; I13.0 Hypertensive heart and chronic kidney disease with heart failure and stage 1 through stage 4 chronic kidney disease, or unspecified chronic kidney disease; N18.4 Chronic kidney disease, stage 4 (severe); Z68.43 Body mass index [BMI] 50.0-59.9, adult; K74.60 Unspecified cirrhosis of liver; K75.81 Nonalcoholic steatohepatitis (NASH); I27.20 Pulmonary hypertension, unspecified; E88.09 Other disorders of plasma-protein metabolism, not elsewhere classified; R33.9 Retention of urine, unspecified; D69.59 Other secondary thrombocytopenia; E87.6 Hypokalemia; E83.42 Hypomagnesemia; E66.01 Morbid (severe) obesity due to excess calories; R53.81 Other malaise; D63.1 Anemia in chronic kidney disease; I95.9 Hypotension, unspecified; M35.00 Sjogren syndrome, unspecified; E78.5 Hyperlipidemia, unspecified; E03.9 Hypothyroidism, unspecified; D50.9 Iron deficiency anemia, unspecified; Z86.711 Personal history of pulmonary embolism; Z79.899 Other long term (current) drug therapy; Z79.02 Long term (current) use of antithrombotics/antiplatelets; M10.9 Gout, unspecified; R09.02 Hypoxemia; D53.9 Nutritional anemia, unspecified
CPT/HCPCS: 36415; 49083; 71046; 76705; 76770; 80048; 80053; 80076; 81001; 82945; 83615; 83735; 83880; 84100; 84157; 84443; 84484; 85025; 85027; 85610; 85730; 86850; 86900; 86901; 86920; 86922; 87086; 88108; 88305; 88313; 89050; 93005; 93306; 94640; 96374; 97110; 97116; 97162; 97166; 97530; 97535; 97802; 99285; J7040; P9040; P9047; Q9957; A4216; C8929; J1940; J2405

== ENCOUNTER 2020-04-13 18:19 | Emergency (ER) | payer MEDICARE, SELFPAY ==
[2020-04-04 23:29] VITALS: BMI 52.7
[2020-04-13 18:19] VITALS: BP 92/78; PULSE 100; RESP 16; TEMP 37.1; O2SAT 98; BMI 49.9
[2020-04-13] MEDS: Lidocaine 2% Jelly 1 APPLIC Tube TOPICAL (20:07)
--- NOTE | 2020-04-13 21:13 | ED.DCSUM_ITS ---
- ER Visit Summary Date of Service: 04/13/20 Chief Complaint: Constipation History of Present Illness: The patient is a 74 F who presents with constipation for the past 4 days. Patient states she has some burning in her rectal area. Patient states she attempted fleets enemas at home with no improvement. Patient states she feels like there is an impaction there. Patient states her pain is worse whenever she touches her rectum. Patient denies any fevers or chills. Patient admits to some nausea but denies any vomiting. Patient denies any abdominal pain. Patient denies any urinary complaints. Physical Examination: Vital signs are stable. Patient is afebrile. Patient is in no acute distress. Neck is supple. Trachea is midline. There is no JVD. Heart was regular rate and rhythm. Lungs are clear and equal bilaterally. Abdomen is soft. Bowel sounds are normal. There is no tenderness. Rectal exam shows good sphincter tone. There is tenderness on rectal exam. There is firm brown stool. Cranial nerves II through XII are intact. There are no focal motor or sensory deficits. Emergency Department Course and Treatment: Lidocaine jelly was applied to the rectum. Soapsuds enema was performed. Patient was able to pass her hard stool. Patient was also able to pass some liquid stool. Patient was discharged home with the lidocaine jelly. Patient was instructed to take laxatives and fiber supplements. Patient was instructed to follow-up with her primary care physician in 3 to 5 days. Patient understood and was agreeable with the plan. All questions were answered. Disposition: Discharge home Impression: Constipation This note was generated with [employer] dictation software. It may contain incorrect words, spelling, and punctuation that were not noted in review of the chart prior to signing ED Disposition - Plan for ED Patient: Disposition: Home or Assisted Living Diagnosis: Constipation Instructions: ED Constipation, ED Impaction Fecal Treated Referrals: Josesito Senior MD [Primary Care Provider] - 3-5 Days
== END 2020-04-13 22:16 | disposition home or self-care (01) ==
PROVIDERS: Emergency Provider Emergency Medicine; PCP Family Medicine
DX: K59.00 Constipation, unspecified (principal); E66.9 Obesity, unspecified; Z79.899 Other long term (current) drug therapy; N18.9 Chronic kidney disease, unspecified; I50.9 Heart failure, unspecified; K74.60 Unspecified cirrhosis of liver
CPT/HCPCS: 99285

== ENCOUNTER → 2020-04-15 16:03 | Outpatient (CLI) | payer MEDICARE, SELFPAY ==
[2020-04-13 18:19] VITALS: BMI 49.9
[2020-04-15 16:41] LABS: ALB/GLOB Ratio 0.6 RATIO (0.9-2.4); AST(SGOT) 44 U/L (15-37); Alanine Aminotransfer ALT/SGPT 20 U/L (13-56); Albumin, Serum 2.1 g/dL (3.2-5.0); Alkaline Phosphatase 84 U/L (45-117); Anion Gap 6 (5-15); BUN 46 mg/dL (7-18); BUN/Creat Ratio 19.1 RATIO (10-20); Calcium,Total 8.4 mg/dL (8.5-10.1); Chloride 99 mmol/L (98-107); Creatinine, Serum 2.41 mg/dL (0.55-1.02); EST Glomerular Filtration Rate 21 mL/min (>60); Est Glom Filt Rate - Afr Amer 25 mL/min (>60); Globulin 3.8 g/dL (2.2-4.2); Glucose 102 mg/dL (74-106); Potassium 3.6 mmol/L (3.5-5.1); Protein, Total 5.9 g/dL (6.4-8.2); Sodium Level 136 mmol/L (136-145)
== END ==
PROVIDERS: PCP Family Medicine; Visit Provider Family Medicine
DX: I13.0 Hypertensive heart and chronic kidney disease with heart failure and stage 1 through stage 4 chronic kidney disease, or unspecified chronic kidney disease (principal); I50.33 Acute on chronic diastolic (congestive) heart failure
CPT/HCPCS: 80053

== ENCOUNTER 2020-04-16 08:37 | Emergency (ER) | payer MEDICARE, SELFPAY ==
[2020-04-16 08:41] VITALS: BP 105/55; PULSE 91; RESP 18; TEMP 36.6; O2SAT 96; BMI 50.3
--- NOTE | 2020-04-16 08:57 | RAD_ITS ---
STUDY: X-RAY - LEFT ELBOW REASON FOR EXAM: Female, 74 years old. ELBOW PAIN S/P FALL THIS MORNING TECHNIQUE: 3 view(s) of the elbow. COMPARISON: None. FINDINGS: There is demineralization of the visualized humerus, radius and ulna. Normal radiocapitellar and ulnotrochlear articulations. The soft tissue structures are unremarkable. There is no demonstrated fracture. RAD/Elbow min 3 Views IMPRESSION: Diffuse demineralization of the osseous structures. Electronically Signed: Zachariah Arredondo MD at 10:06 EDT , Service support ,
--- NOTE | 2020-04-16 08:57 | CT_ITS ---
STUDY: CT BRAIN WITHOUT CONTRAST REASON FOR EXAM: Female, 74 years old. FALL W/ HEAD INJURY RADIATION DOSAGE (If Supplied By Facility): CTDIvol = ( 44.99 ) mGy, DLP = ( 762.36 ) mGycm TECHNIQUE: Transaxial CT imaging of the brain was performed without administration of intravenous contrast material. Individualized dose optimization techniques were used for this CT. COMPARISON: April 09, 2017 FINDINGS: Normal soft tissue structures. Normal calvarium. There is acute fracture of the anterior arch of C1. There is mild cerebral atrophy with widening of the extra-axial spaces and ventricular dilatation. Normal white matter tracts of the cerebral hemispheres. Normal basal ganglia and thalami. Normal brainstem. Normal cerebellum. There is no intracranial hemorrhage. There are no findings of an acute ischemic infarction. Normal visualized paranasal sinuses. CT/Brain/Head without Contrast IMPRESSION: Chronic involutional changes of the brain. Cervical spine fracture. Electronically Signed: Zachariah Arredondo MD at 10:13 EDT , Service support ,
--- NOTE | 2020-04-16 08:58 | RAD_ITS ---
STUDY: X-RAY - UNILATERAL RIBS ( LEFT ) WITH CHEST REASON FOR EXAM: Female, 74 years old. LEFT SIDED CHEST/RIB PAIN S/P FALL THIS MORNING TECHNIQUE - RIBS: 4 view(s) of the ribs. TECHNIQUE - CHEST: Single frontal view of the chest. COMPARISON: Chest x-ray April 04, 2020 FINDINGS - RIBS: There is severe demineralization of the osseous structures which diminishes the diagnostic sensitivity of this examination, however there is no visualized rib fracture. FINDINGS - CHEST: There are fibrotic densities and granulomatous calcifications of the lungs. Right midlung atelectasis or early infiltrate. There is no demonstrated pleural abnormality. Normal size heart. Normal mediastinum and susanna. Normal visualized pulmonary arteries. Normal visualized aortic arch and descending thoracic aorta. There is demineralization of the osseous structures. Normal visualized ribs, clavicles, and shoulders. There is no demonstrated abnormality of the visualized soft tissue structures of the upper abdomen. RAD/Ribs Uni Min 3V w/PA Chest IMPRESSION: RIBS: Demineralization. No fracture seen. CHEST: Right midlung atelectasis or early infiltrate. Electronically Signed: Zachariah Arredondo MD at 10:09 EDT , Service support ,
--- NOTE | 2020-04-16 08:58 | CT_ITS ---
We are attempting to reach an attending provider to discuss findings. An addendum with communication details will be sent when the communication is complete. STUDY: CT CERVICAL SPINE WITHOUT CONTRAST REASON FOR EXAM: Female, 74 years old. FALL W/ HEAD INJURY RADIATION DOSAGE (If Supplied By Facility): CTDIvol = ( 32.83 ) mGy, DLP = ( 584.01 ) mGycm TECHNIQUE: High resolution transaxial imaging was performed without contrast material. Sagittal and coronal images were reconstructed. Individualized dose optimization techniques were used for this CT. COMPARISON: None FINDINGS: Normal craniovertebral junction. Normal anterior atlantoaxial articulation. Normal odontoid process. Normal cervical lordosis. There is acute nondisplaced fracture of the anterior arch of C1, series 5 images 17/125 through 25/125 . C2-3: Normal endplates. Normal disc height and morphology. Normal central canal and intervertebral neuroforamina. C3-4: Disc space narrowing with endplate changes. Disc bulge and spurring. Mild facet spurring. Uncovertebral spurring with left foraminal narrowing C4-5: Disc bulge and spurring. Facet spurring. Uncovertebral spurring with left foraminal narrowing. C5-6: Disc space narrowing with endplate change. Disc bulge and spurring. Facet spurring. Uncovertebral spurring with right foraminal narrowing and encroachment. Moderate canal stenosis. C6-7: Normal endplates. Normal disc height and morphology. Normal central canal and intervertebral neuroforamina. C7-T1: Normal endplates. Normal disc height and morphology. Normal central canal and intervertebral neuroforamina. Normal visualized soft tissue structures. CT/Spine Cervical without Contras IMPRESSION: Multilevel degenerative changes, as described above. C1 fracture. Electronically Signed: Zachariah Arredondo MD at 10:18 EDT , Service support ,
--- NOTE | 2020-04-16 08:59 | ED.DCSUM_ITS ---
History of Present Illness Chief Complaint: Fall Informant: Patient Onset: Today Mechanism/Context: Fall Quality of Pain: Sharp Narrative: Patient is a 74-year-old female presenting after mechanical fall. Patient states she was tried to go to the bathroom when she tripped and fell in her bathroom. She landed on her left side on the bathtub and also struck her face. Patient denies any loss of consciousness. She states she is not any blood thinners. She did have epistaxis but that has resolved. Patient does wear home oxygen and states her nose feels very stuffy right now. She is complaining of headache, neck pain, left-sided rib pain and left elbow pain. She states she was otherwise feeling well. She notes he recently had a paracentesis performed and they drained 8 L of fluid off of her. Patient lives at home with her in a trailer. Past Medical History - Allergies and Home Meds Allergies/Adverse Reactions: Allergies adhesive Allergy (Verified 04/16/20 08:54) Rash Penicillins [PCN] Allergy (Verified 04/16/20 08:54) Swelling Primary Care Physician: Josesito Senior MD [Primary Care Provider] - Past Medical History: - - CKD4, A. fib, chronic anemia, hypertension, Sjogren's syndrome, history of PE, pulmonary hypertension, hypothyroid, hyperlipidemia Surgical History: appendectomy, cholecystectomy, - - Extensor tendon surgery on both hands, bilateral carpal tunnel, tubal ligation Smoking Status: Former smoker - Family History Maternal Family History: Family History (Last Reviewed 04/04/20 @ 23:[address] Mathew Cunningham DO) Brother Bone cancer Sister Lung cancer Sister Cervical cancer Hypertension Mother Uterine cancer Father Hypertension Myocardial infarction Brother Myocardial infarction Family History: Reports: Cancer Paternal Family History: Family History (Last Reviewed 04/04/20 @ 23:[address] Mathew Cunningham DO) Brother Bone cancer Sister Lung cancer Sister Cervical cancer Hypertension Mother Uterine cancer Father Hypertension Myocardial infarction Brother Myocardial infarction Family History: Reports: Heart Disease Review of Systems General: Denies: Chills, Fever, Sweats Eyes: Denies: Visual changes - bilaterally, Diplopia ENT: Reports: - - epistaxis, resolved . Denies: Rhinorrhea, Sore throat Cardiovascular: Reports: Chest pain - left ribs. Denies: Palpitations Respiratory: Denies: Dyspnea, Cough, Dyspnea on exertion Gastrointestinal: Denies: Abdominal pain, Nausea, Vomiting, Diarrhea, Melena, Hematochezia Genitourinary: Denies: Dysuria, Hematuria, Frequency Musculoskeletal: Reports: Neck pain, Extremity Pain - left elbow. Denies: Back pain Skin: Reports: Wounds - left finger, elbow. Denies: Rash Neurological: Reports: Headache. Denies: Weakness, Numbness Physical Exam Vital Signs/Narrative: Vital Signs Temp Pulse Resp BP Pulse Ox 04/16/20 08:41 97.8 F 91 18 105/55 L 96 Inital Vital Signs reviewed: Yes General: Well nourished, Well developed, Obese Head: Normocephalic, - - No cephalohematoma, no signs of basilar skull fracture Eyes: Perrl, EOMI, - - Left periorbital ecchymosis present ENT: TM's clear, No hemotympanum or drainage, No trauma, - - Blood in the bilateral nares, no active bleeding noted. Negative for: Nasal septal hematoma Neck: Spinal Tenderness, Paraspinal Tenderness, - - Few tenderness to palpation of the neck, no step-off sign appreciated Cardiovascular: Regular rate, Regular rhythm, No murmurs Respiratory: No distress, CTA bilaterally, Chest tenderness - Left lateral chest wall, no crepitus or ecchymosis noted Abdomen: Soft, Nontender, Nondistended, Normal bowel sounds Back: Nontender Extremeties: Full range of motion, no obvious deformity. Mild diffuse tenderness of the left elbow to palpation Skin: Normal color, No rash, Trauma - 1 cm skin tear of the left fourth finger at the proximal phalanges, dorsal aspect 3 cm x 2 cm skin tear over the left elbow Neurological: Alert, Oriented x3, Cranial nerves II-XII grossly intact, Normal Strength, Normal Sensation Psychological: Normal affect - Glascow Coma Scale Eye Opening: Spontaneous Motor: Obeys Commands Verbal: Oriented Coma Scale Total: 15 Diagnostic/Tx/Re-eval Clinical Impression(s) from Imaging Studies Brain CT 04/16/20 08:57 IMPRESSION: Chronic involutional changes of the brain. Cervical spine fracture. Electronically Signed: Zachariah Arredondo MD at 10:13 EDT , Service support , Elbow X-Ray 04/16/20 08:57 IMPRESSION: Diffuse demineralization of the osseous structures. Electronically Signed: Zachariah Arredondo MD at 10:06 EDT , Service support , Cervical Spine CT 04/16/20 08:58 IMPRESSION: Multilevel degenerative changes, as described above. C1 fracture. Electronically Signed: Zachariah Arredondo MD at 10:18 EDT , Service support , ADDENDUM: 04/16/20 1030 IMPRESSION: Multilevel degenerative changes, as described above. C1 fracture. N.B. : The above information has been verbally conveyed by Zachariah Arredondo MD to Dr. Real, , on 04/16/2020 10:24:00 (ET). Electronically Signed: Zachariah Arredondo MD at 10:18 EDT , Service support , Ribs w/Chest X-Ray 04/16/20 08:58 IMPRESSION: RIBS: Demineralization. No fracture seen. CHEST: Right midlung atelectasis or early infiltrate. Electronically Signed: Zachariah Arredondo MD at 10:09 EDT , Service support , Laboratory Data 04/16/20 10:43 WBC 12.0 H RBC 2.67 L Hgb 9.1 L Hct 29.3 L MCV 109.7 H MCH 34.1 H MCHC 31.1 L RDW Std Deviation 73.6 H RDW Coeff of Yuri 18.2 H Plt Count 150 MPV 9.5 Immature Gran % (Auto) 0.900 Neut % (Auto) 80.9 H Lymph % (Auto) 5.9 L Cobb % (Auto) 7.3 Eos % (Auto) 4.6 Baso % (Auto) 0.4 Absolute Neuts (auto) 9.7 H Absolute Lymphs (auto) 0.71 L Nucleated RBC % 0 - Medical Decision Making She is evaluated after mechanical fall. She is complaining of neck pain, left- sided rib pain and left arm pain. She is neuro vastly intact. Patient comes in laying on her stomach/right side which is her only position of comfort. She is given IM morphine and sent imaging. CT is notable for a nondisplaced anterior arch fracture of C1. C-collar was placed and patient be transferred to [facility] for further trauma evaluation. No other acute fractures were found. Tetanus is ordered. Patient does not have a preference for trauma facility but states she like to go to the closest 1 which is why we called [facility]. I did discuss with Dr. Enciso who accepts the patient. and patient are aware of plan. is allowed back to see the patient before transfer. No other acute intracranial process or acute fracture is found. IV is placed and patient is given additional 4 mg of morphine as well as 4 mg of IV Zofran. She remained hemodynamically stable in the emergency room. ED Disposition - Plan for ED Patient: Disposition: [facility] Diagnosis: C1 cervical fracture, Skin tear of elbow without complication, Skin tear of left hand without complication, Contusion of rib on left side Referrals: Josesito Senior MD [Primary Care Provider] -
[2020-04-16] MEDS: Morphine 4 MG/ML Syringe IM (09:16)
[2020-04-16] MEDS: Morphine 4 MG/ML Syringe IV (10:53)
[2020-04-16] MEDS: Ondansetron 4 MG/2 ML Vial IV (10:53)
[2020-04-16 10:54] LABS: Absolute Lymphocyte Count 0.71 X10^3/uL (0.83-4.51); Absolute Neutrophil Count 9.7 X10^3/uL (2.0-7.7); Basophil# 0.05 X10^3/uL; Basophil% 0.4 % (0-1); Eosinophil# 0.55 X10^3/uL; Eosinophils% 4.6 % (0-5); Hematocrit 29.3 % (37-47); Hemoglobin 9.1 g/dL (12.0-15.0); Lymphocyte # 0.71 X10^3/ul (4.0); Lymphocyte % 5.9 % (19-41); Mean Corp Hgb Conc 31.1 g/dL (32-36); Mean Corpuscular Hgb 34.1 pg (27.0-32.0); Mean Corpuscular Volume 109.7 fL (81-99); Mean Platelet Vol. 9.5 fl (6.2-12.0); Monocyte# 0.87 X10^3/uL; Monocyte% 7.3 % (0-10); NRBC Flagged by Analyzer 0 % (0-5); Neutrophil # 9.67 X10^3/uL (2.7-7.7); Neutrophil % 80.9 % (47-70); POSITIVE MORPHOLOGY YES; Platelet Count 150 K/mm3 (150-450); RBC Distribution Width CV 18.2 % (11.6-14.6); RBC Distribution Width SD 73.6 fl (35.1-43.9); Red Blood Count 2.67 M/mm3 (4.2-5.4)
[2020-04-16 10:55] LABS: Differential Indicated SCAN CRITERIA MET
[2020-04-16 11:07] LABS: Anion Gap 6 (5-15); BUN 47 mg/dL (7-18); BUN/Creat Ratio 18.9 RATIO (10-20); Calcium,Total 8.4 mg/dL (8.5-10.1); Chloride 99 mmol/L (98-107); Creatinine, Serum 2.49 mg/dL (0.55-1.02); EST Glomerular Filtration Rate 20 mL/min (>60); Est Glom Filt Rate - Afr Amer 24 mL/min (>60); Estimated Creatinine Clearance 15.91 ml/min; Glucose 95 mg/dL (74-106); International Normalized Ratio 1.2; Potassium 5.2 mmol/L (3.5-5.1); Prothrombin Time (Protime)PT. 14.2 SECONDS (11.7-14.9); Sodium Level 135 mmol/L (136-145)
[2020-04-16 11:09] LABS: Partial Thromboplast Time 20.6 Seconds (24.1-36.2)
[2020-04-16 11:15] LABS: Anisocytosis 1+; Hypochromasia RARE; Platelet Estimate ADEQUATE (ADEQ); Polychromasia RARE
--- NOTE | 2020-04-16 11:54 | NURSING ---
CALLED [facility]. THEY WILL CALL BACK WITH AN ETA
--- NOTE | 2020-04-16 11:57 | NURSING ---
ETA IS 6- TO 90 MIN
[2020-04-16] MEDS: Diphth,Pertuss(Acell),Tet Vac 0.5 ML Vial IM (12:38)
[2020-04-16] MEDS: fentaNYL 100 MCG/2 ML Ampul 25 MCG IV (12:45)
[2020-04-16 13:23] VITALS: BP 104/45; PULSE 85; RESP 16; O2SAT 96
== END 2020-04-16 13:24 | disposition short-term general hospital (02) ==
PROVIDERS: Emergency Provider Emergency Medicine; PCP Family Medicine
DX: S12.000A Unspecified displaced fracture of first cervical vertebra, initial encounter for closed fracture (principal); W01.198A Fall on same level from slipping, tripping and stumbling with subsequent striking against other object, initial encounter; S20.212A Contusion of left front wall of thorax, initial encounter; S61.412A Laceration without foreign body of left hand, initial encounter; S51.012A Laceration without foreign body of left elbow, initial encounter; I12.9 Hypertensive chronic kidney disease with stage 1 through stage 4 chronic kidney disease, or unspecified chronic kidney disease; N18.4 Chronic kidney disease, stage 4 (severe); I48.91 Unspecified atrial fibrillation; I27.20 Pulmonary hypertension, unspecified; E78.5 Hyperlipidemia, unspecified; E03.9 Hypothyroidism, unspecified; M35.00 Sjogren syndrome, unspecified; Z86.711 Personal history of pulmonary embolism; Z87.891 Personal history of nicotine dependence; Z79.899 Other long term (current) drug therapy
CPT/HCPCS: 70450; 71101; 72125; 73080; 80048; 85025; 85610; 85730; 90715; 96361; 96372; 96374; 96375; 99285; J7040; A4216; J2405

== ENCOUNTER 2020-04-30 12:14 | Emergency (ER) | payer MEDICARE, SELFPAY ==
[2020-04-30] VITALS (10 sets, daily range): BP systolic 99–126; BP diastolic 37–59; PULSE 78–96; RESP 15–18; TEMP 36.6; O2SAT 96–99; BMI 53.2
--- NOTE | 2020-04-30 12:34 | CT_ITS ---
STUDY: CT CERVICAL SPINE WITHOUT CONTRAST REASON FOR EXAM: Female, 74 years old. CURRENT CERVICAL FX, PAIN AFTER BEING LIFTED YESTERDAY, HTN, CKD STAGE 4 RADIATION DOSAGE (If Supplied By Facility): CTDIvol = ( 31.15 ) mGy, DLP = ( 593.03 ) mGycm TECHNIQUE: High resolution transaxial imaging was performed without contrast material. Sagittal and coronal images were reconstructed. Individualized dose optimization techniques were used for this CT. COMPARISON: April 16, 2020 FINDINGS: Normal craniovertebral junction. There are degenerative changes of the anterior atlantoaxial articulation. Normal odontoid process. Normal cervical lordosis. There are bilateral fractures anterior arch of C1 again visualized. The fracture on the left of the anterior arch has progressed since the prior examination dated April 16, 2020. The lateral masses are now both displaced laterally by 2.8 mm on the right and 2.8 mm on the left. There is a new fracture within the posterior arch right of midline visualized as well. C2-3: Normal endplates. Normal disc height and morphology. Normal central canal and intervertebral neuroforamina. C3-4: There is a posterior disc osteophyte and facet hypertrophy associated with stenosis of the central canal and bilateral narrowing of the neural foramina. C4-5: There is a posterior disc osteophyte and facet hypertrophy associated with stenosis of the central canal and bilateral narrowing of the neural foramina. C5-6: There is a posterior disc osteophyte and facet hypertrophy associated with stenosis of the central canal and bilateral narrowing of the neural foramina. C6-7: Normal endplates. Normal disc height and morphology. Normal central canal and intervertebral neuroforamina. C7-T1: Normal endplates. Normal disc height and morphology. Normal central canal and intervertebral neuroforamina. The limited images of the chest demonstrate a left pleural effusion. CT/Spine Cervical without Contras IMPRESSION: C1 anterior arch fracture again visualized associated with new lateral displacement of the lateral masses and a new fracture posterior arch fracture right of midline. Multilevel degenerative changes, as described above. Left pleural effusion. Electronically Signed: Maty Chauhan MD at 14:08 EDT Tel , Service support ,
--- NOTE | 2020-04-30 12:37 | ED.VIS.GEN ---
History of Present Illness Chief Complaint: Back Informant: Patient Onset: Yesterday Current Severity: Mild Narrative: The patient presents with from nursing rehab center with complaints of neck pain, Indicates a week ago she fell at home suffered what appears to be a C1 fracture was seen at [facility] treated with a soft collar discharged to rehab center. While at [facility] per her history she somehow suffered an injury to her left leg and that her left leg is bruised and contused but that is not her issue. Her issue today is that they were lifting her with a Bryan lift during that maneuver she suffered some unspecified neck injury where she felt her neck pop she suggesting her neck was not supported as they moved her, she had no direct trauma to her neck she just had exacerbation of the neck pain since yesterday persisted into today and she came for evaluation. She has no numbness weakness paresthesias no new injury or trauma She has multiple medical problems including renal and liver disease ascites she has a paracentesis once or twice a month that is all stable Past Medical History - Allergies and Home Meds Allergies/Adverse Reactions: Allergies adhesive Allergy (Verified 04/30/20 12:22) Rash Penicillins [PCN] Allergy (Verified 04/30/20 12:22) Swelling Primary Care Physician: Josesito Senior MD [Primary Care Provider] - Past Medical History: - - As above Surgical History: appendectomy, cholecystectomy, - - Extensor tendon surgery on both hands, bilateral carpal tunnel, tubal ligation Smoking Status: Never smoker - Family History Maternal Family History: Family History (Last Reviewed 04/04/20 @ 23:[address] Mathew Cunningham DO) Brother Bone cancer Sister Lung cancer Sister Cervical cancer Hypertension Mother Uterine cancer Father Hypertension Myocardial infarction Brother Myocardial infarction Family History: Reports: Cancer Paternal Family History: Family History (Last Reviewed 04/04/20 @ 23:[address] Mathew Cunningham DO) Brother Bone cancer Sister Lung cancer Sister Cervical cancer Hypertension Mother Uterine cancer Father Hypertension Myocardial infarction Brother Myocardial infarction Family History: Reports: Heart Disease Review of Systems General: Denies: Chills, Fever, Sweats Eyes: Denies: Visual changes - bilaterally, Diplopia ENT: Denies: Rhinorrhea, Sore throat Cardiovascular: Denies: Chest pain, Palpitations Respiratory: Denies: Dyspnea, Cough, Dyspnea on exertion Gastrointestinal: Denies: Abdominal pain, Nausea, Vomiting, Diarrhea, Melena, Hematochezia Genitourinary: Denies: Dysuria, Hematuria, Frequency Musculoskeletal: Denies: Back pain, Extremity Pain Skin: Denies: Rash, Wounds Neurological: Denies: Headache, Weakness, Numbness Physical Exam Vital Signs/Narrative: Vital Signs Temp Pulse Resp BP Pulse Ox 04/30/20 12:19 80 15 115/50 L 96 04/30/20 12:15 98 F 80 16 115/50 L 97 General: Well nourished, Well developed, No Acute Distress, - - He is wearing a soft collar she has a very mild diffuse neck pain HEENT exam is unremarkable she is awake and alert answering questions Head: Normocephalic, Atraumatic Eyes: Perrl, EOMI ENT: Moist mucous membranes, No rhinorrhea Neck: Supple, Nontender Cardiovascular: Regular rate, Regular rhythm, No murmurs Respiratory: No distress, CTA bilaterally, Chest nontender Abdomen: Soft, Nontender, Normal bowel sounds, - - She has has abdominal distention she has some ascites there is no tenderness Back: Nontender, Normal Inspection Extremities: Nontender, No edema, - - And extensive contusion of bruising bluish discoloration to the left lower leg full range of motion no pain no recent trauma this occurred a week ago Skin: Normal color, No rash Neurological: Alert, Oriented x3, Cranial nerves II-XII grossly intact, Normal Strength, Normal Sensation, - - He is moving all 4 extremities she has no complaints of any weakness or neurologic issues Psychological: Normal affect, Normal Mood Diagnostic/Tx/Re-eval - Medical Decision Making Given all of the above and what she describes CT of the neck pain management there are no neurologic issues she did not fall today it was just positioning her the cause of discomfort, her discomfort is ongoing she indicates that physicians have prescribed soft collar therapy and rehab The patient CT shows the prior anterior arch fracture C1, and now a new posterior arch fracture of C1, and there appears to be shifting of the lateral masses Talk with the patient and her explained that they would need to be transferred to tertiary care they did not wish to be specifically transferred to [facility] patient indicated all of her healthcare providers at [facility] for all of her other chronic medical problems and she wants to be transferred there Spoke with [facility] orthospine attending exploitation analyst discussed the case in detail they have accepted her in transfer but they believe she would be better suited to be admitted primarily to medicine because of all of her other medical conditions and they would see her immediately on arrival for the spine injury we did explain that we do not have a hard collar that would fit her neck she is remained immobilized with the soft collar had blocks she remains neurologically and hemodynamically stable Screening labs are pending they will be on the chart when they are available Transfer [facility] Impression final new posterior arch C1 fracture, prior anterior arch C1 fracture, history of renal disease ascites A. fib multiple medical problems ED Disposition - Plan for ED Patient: Referrals: Josesito Senior MD [Primary Care Provider] -
[2020-04-30] MEDS: morphine 8 MG/ML Syringe IM (13:03)
[2020-04-30] MEDS: Ondansetron ODT 4 MG Tablet PO (13:03)
--- NOTE | 2020-04-30 14:44 | EKG12_ITS ---
Test Reason : Blood Pressure : / mmHG Vent. Rate : 082 BPM Atrial Rate : 082 BPM P-R Int : 176 ms QRS Dur : 084 ms QT Int : 388 ms P-R-T Axes : 032 -18 -06 degrees QTc Int : 453 ms Normal sinus rhythm Low voltage QRS Possible Lateral infarct , age undetermined Abnormal ECG Confirmed by ERIC DA SILVA, ANETA ([id number]), editor map AISHA LIVINGSTON ([id number]) on 05/11/2020 1:18:49 PM Referred By: JEAN CARLOS Confirmed By:ANETA REYES MD
[2020-04-30] MEDS: 0.9% Normal Saline 1,000 ML 125 ML IV (14:56)
[2020-04-30] MEDS: Morphine 4 MG/ML Syringe IV (14:56)
[2020-04-30 15:09] LABS: Absolute Lymphocyte Count 1.02 X10^3/uL (0.83-4.51); Absolute Neutrophil Count 6.3 X10^3/uL (2.0-7.7); Basophil# 0.04 X10^3/uL; Basophil% 0.5 % (0-1); Eosinophil# 0.77 X10^3/uL; Eosinophils% 8.7 % (0-5); Hematocrit 29.9 % (37-47); Hemoglobin 9.6 g/dL (12.0-15.0); Lymphocyte # 1.02 X10^3/ul (4.0); Lymphocyte % 11.6 % (19-41); Mean Corp Hgb Conc 32.1 g/dL (32-36); Mean Corpuscular Hgb 33.9 pg (27.0-32.0); Mean Corpuscular Volume 105.7 fL (81-99); Mean Platelet Vol. 10.9 fl (6.2-12.0); Monocyte# 0.63 X10^3/uL; Monocyte% 7.1 % (0-10); NRBC Flagged by Analyzer 0 % (0-5); Neutrophil % 71.4 % (47-70); POSITIVE MORPHOLOGY YES; Platelet Count 117 K/mm3 (150-450); RBC Distribution Width CV 18.7 % (11.6-14.6); RBC Distribution Width SD 72.2 fl (35.1-43.9); Red Blood Count 2.83 M/mm3 (4.2-5.4); White Blood Count 8.8 K/mm3 (4.4-11.0)
[2020-04-30 15:21] LABS: Differential Indicated SCAN CRITERIA MET
[2020-04-30 15:22] LABS: International Normalized Ratio 1.2; Prothrombin Time (Protime)PT. 14.6 SECONDS (11.7-14.9)
[2020-04-30 15:27] LABS: Bacteria 0 SEEN /hpf (None Seen); Mucous, Urine 0 SEEN /hpf (<or=2+); Red Blood Cells-Urine 0 SEEN /hpf (0-5); White Blood Cells 0 SEEN /hpf (0-5)
[2020-04-30 15:32] LABS: Color, Urine Yellow (Yellow); Glucose, Dipstick Normal (Normal); Ketone-Dipstick Negative (Negative); Leukocyte Esterase-Dipstick Negative /ul (Negative); Nitrite-Dipstick Negative (Negative); Occult Blood-Urine 25 /ul (Negative); Protein-Dipstick Negative (Negative); Urine Bilirubin Dipstick Negative (Negative); Urine Clarity Sl. Cloudy (Clear); Urine Urobilinogen Normal (Normal)
[2020-04-30 15:36] LABS: ALB/GLOB Ratio 0.5 RATIO (0.9-2.4); AST(SGOT) 29 U/L (15-37); Alanine Aminotransfer ALT/SGPT 16 U/L (13-56); Albumin, Serum 1.9 g/dL (3.2-5.0); Alkaline Phosphatase 75 U/L (45-117); Anion Gap 7 (5-15); BUN 51 mg/dL (7-18); BUN/Creat Ratio 24.8 RATIO (10-20); Calcium,Total 7.9 mg/dL (8.5-10.1); Chloride 98 mmol/L (98-107); Creatinine, Serum 2.06 mg/dL (0.55-1.02); Differential Comment SCANNED; EST Glomerular Filtration Rate 25 mL/min (>60); Est Glom Filt Rate - Afr Amer 30 mL/min (>60); Estimated Creatinine Clearance 19.24 ml/min; Globulin 4.2 g/dL (2.2-4.2); Glucose 102 mg/dL (74-106); Potassium 3.7 mmol/L (3.5-5.1); Protein, Total 6.1 g/dL (6.4-8.2); Sodium Level 136 mmol/L (136-145)
[2020-04-30 15:44] LABS: Squamous Epithelial Cells - UA 0-5 SEEN /hpf (5-10)
--- NOTE | 2020-04-30 20:31 | NURSING ---
CALLED [facility] ABOUT BED AND WAS INFORMED THEY STILL DID NOT HAVE ONE READY OF 2029
[2020-05-01 00:25] VITALS: BP 117/60; PULSE 95; RESP 16; O2SAT 97
[2020-05-01] MEDS: Morphine 4 MG/ML Syringe IV (01:07)
[2020-05-01] MEDS: 0.9% Normal Saline 1,000 ML 125 ML IV (01:07)
[2020-05-01 02:40] VITALS: BP 108/62; PULSE 89; RESP 18; O2SAT 95
== END 2020-05-01 02:42 | disposition short-term general hospital (02) ==
LOC: ED 12:56
PROVIDERS: Emergency Provider Emergency Medicine; PCP Family Medicine
DX: S12.030A Displaced posterior arch fracture of first cervical vertebra, initial encounter for closed fracture (principal); S12.090A Other displaced fracture of first cervical vertebra, initial encounter for closed fracture; I48.91 Unspecified atrial fibrillation; X58.XXXA Exposure to other specified factors, initial encounter; Y93.89 Activity, other specified; Y92.89 Other specified places as the place of occurrence of the external cause; Y99.8 Other external cause status
CPT/HCPCS: 72125; 80048; 80053; 81001; 85025; 85610; 93005; 96361; 96372; 96374; 96376; 99285; J7030; A4216